=== PATIENT | female | born 1955 | race Caucasian/White ===

== ENCOUNTER 2022-06-27 12:45 | Emergency (ER) | payer OTHER ==
--- OUTSIDE RECORDS SUMMARY | 2022-06-27 12:49 | XMS REPORT | Continuity of Care Document ---
:1955 Author Organization [facility] t Address [address] [place] [address] Care Team Providers Name Role Phone NICOLE GONZALEZ Primary Care Physician Unavailable NICOLE GONZALEZ Attending Clinician Unavailable MARTHA ALEJANDRE Attending Clinician Unavailable Martha Alejandre MD Attending Clinician Nicole Gonzalez MD Attending Clinician Lab, Ang - Db Attending Clinician Unavailable YINKA HALL Attending Clinician Unavailable Vaccine, Ang Db Cbc Fam Attending Clinician Unavailable Orin Albarran Attending Clinician ORIN GARCIA Attending Clinician Unavailable RUFUS BRITO Attending Clinician Unavailable Yinka Hall MD Attending Clinician Doctor Unassigned, [place] Attending Clinician Unavailable KEITH CELESTE Attending Clinician Unavailable Keith Celeste DO Attending Clinician Rosa Jack PTA Attending Clinician Unavailable Daniel Rob MD Attending Clinician Paulo Orellana PTNaomi Attending Clinician Unavailable Cornelia Carter PT Attending Clinician Unavailable Caren Herrera Attending Clinician MARTHA ALEJANDRE Admitting Clinician Unavailable RUFUS BRITO Admitting Clinician Unavailable Payers Payer Name Policy Type Policy Number Effective Date Expiration Date Autumn ROGERS II [id number] 2020 00:00:00 Problems Condition Condition Condition Status Onset Resolution Last Treating Co mments Source Name Details Category Date Date Treatment Clinician Date Elevated Elevated Disease Active 2018-06 Unive rs AFP AFP 1-19 ity of 00:00: [place] 00 [facility] Erythrocyt Erythrocyt Disease Active 2018-06 U krystal osis osis 1-13 ity of 00:00: [place] 00 [facility] History of History of Disease Active 2018-06 U krystal prediabete prediabete 1-13 it y of s s 00:00: [place] [facility] Prediabete Prediabete Disease Active 2018-06 U nivers s s 1-13 ity of 00:00: [place] 00 [facility] Osteoarthr Osteoarthr Disease Active U krystal itis of itis of 8-21 ity of cervical cervical 00:00: [place] spine, spine, 00 Medical unspecifie unspecifie Br anch d spinal d spinal osteoarthr osteoarthr itis itis complicati complicati on status on status DDD DDD Disease Active Univers (degenerat (degenerat 8-19 it y of aurelia disc aurelia disc 00:00: [place] disease), disease), 00 [facility]i [place] cervical cervical Branch Transamini Transamini Disease Active 2016-06 U krystal tis tis 2-07 ity of 00:00: [place] 00 [facility] Hyperlipid Hyperlipid Disease Active 2016- U krystal emia emia 2-17 ity of 00:00: [place] 00 [facility] Fatty Fatty Disease Active Univers liver liver ity of [facility] Hair loss Hair loss Disease Active Uni vers ity of [facility] Arthritis Arthritis Disease Active Uni vers ity of [facility] Allergies, Adverse Reactions, Alerts Allergy Allergy Status Severity Reaction(s) Onset Inactive Treating Comm ents Source Name Type Date Date Clinician Penicill Propensi Active Hives 2017-06 Univer s ins ty to 2-28 ity of adverse 00:00: [place] reaction 00 Medical s Branch PENICILL Drug Active Hives 2017-06 Univers INS Class 2-28 ity of 00:00: [place] 00 [facility] Penicill Propensi Active Hives 2017-06 Univer s ins ty to 2- ity of adverse 00:00: [place] reaction 00 Medical s Branch Penicill Propensi Active Hives 2017-06 Univer s ins ty to 2- ity of adverse 00:00: [place] reaction 00 Medical s Branch Penicill Propensi Active Unknown - Uni vers in ty to See comments - ity of adverse 00:00: [place] reaction 00 Medical s Branch PENICILL DRUG Active Unknown-Cmnt Un karsten IN INGREDI 2-17 ity of 00:00: [place] 00 [facility] Social History Social Habit Start Date Stop Date Quantity Comments Source Exposure to 2022-04-24 2022-05-04 Not sure [facility] SARS-CoV-2 00:00:00 09:42:00 [facility] (event) [facility] Alcohol intake 2022-05-04 2022-05-04 0 /d [facility] 00:00:00 00:00:00 [facility] Tobacco use and 2022-04-22 2022-04-22 Smokeless tobacco Un iversity of exposure 00:00:00 00:00:00 non-user [facility] Sex Ass[birth year] At [birth year] Universit y of 00:00:00 00:00:00 [facility] Smoking Status Start Date Stop Date Source Never smoked tobacco [facility] Medications Ordered Filled Start Stop Current Ordering Indication Dosage Frequency Signature Comments Components Source Medication Medication Date Date Medication? Clinician (SIG) Name Name iopamidol 2021-06- No [id number] 73mL 73 mL, U nivers (ISOVUE 07-04 Intravenou ity o f 370-500 mL) 18:15: 18:15 s, ONCE, 1 [place] injection 00 :00 dose, On Medica l 73 mL Tue Branch 05/04/22 at 1215, Routine ondansetron 2021-06 Yes [id number] 1-2 Un karsten 4 mg tablet 07-04 tablets ity o f 00:00: every 6 [place] 00 hours as Medical needed for Branch nausea metroNIDAZO 2021-06- Yes [id number] 500mg Take 1 Univers LE 500 mg 07-04 12-10 tablet by ity of tablet 00:00: 05:59 mouth [place] 00 :00 every 8 Medical (eight) Branch hours for 10 days. levoFLOXaci 2021-06- Yes [id number] 500mg Take 1 Univers n 500 mg 07-04 12-10 tablet by ity o f tablet 00:00: 05:59 mouth [place] 00 :00 every 24 Medical (twenty-fo Branch ur) hours for 10 days. predniSONE 2021-06- Yes [id number] 40mg Take 2 Univers 20 mg -29 12-07 tablets by ity of tablet 00:00: 05:59 mouth in [place] 00 :00 the Medical morning Branch for 7 days. ciprofloxac 2021-06 Yes [id number] 500mg Take 1 Univers in HCl 1-17 tablet by ity of (CIPRO) 500 00:00: mouth [place] mg tablet 00 every 12 Medica l (twelve) Branch hours. ciprofloxac 2021-06 Yes [id number] 500mg Take 1 Univers in HCl 1-17 tablet by ity of (CIPRO) 500 00:00: mouth [place] mg tablet 00 every 12 Medica l (twelve) Branch hours. ciprofloxac 2021-06 Yes [id number] 500mg Take 1 Univers in HCl 1-17 tablet by ity of (CIPRO) 500 00:00: mouth [place] mg tablet 00 every 12 Medica l (twelve) Branch hours. RETIN-A Yes Univers MICRO PUMP 9-13 ity of 0.06 % GlwP 00:00: [place] 00 [facility] RETIN-A Yes Univers MICRO PUMP 9-13 ity of 0.06 % GlwP 00:00: [place] 00 [facility] RETIN-A Yes Univers MICRO PUMP 9-13 ity of 0.06 % GlwP 00:00: [place] 00 [facility] MULTIVITAMI 2020-06 Yes Take by Uni vers N ORAL 2-07 mouth. ity of 09:54: [address] Branch cholecalcif 2020-06 Yes 1{capsu Take 1 U nivers tres, 2-07 le} capsule by ity of vitamin D3, 09:54: mouth [place] (VITAMIN D3 46 daily. Medica l ORAL) Branch MULTIVITAMI 2020-06 Yes Take by Uni vers N ORAL 2-07 mouth. ity of 09:54: [address] Branch cholecalcif 2020-06 Yes 1{capsu Take 1 U nivers tres, 2-07 le} capsule by ity of vitamin D3, 09:54: mouth [place] (VITAMIN D3 46 daily. Medica l ORAL) [facility] 2020-06 Yes Take by Uni vers N ORAL 2-07 mouth. ity of 09:54: [address] cholecalcif 2020-06 Yes 1{capsu Take 1 U nivers tres, 2-07 le} capsule by ity of vitamin D3, 09:54: mouth [place] (VITAMIN D3 46 daily. Medica l ORAL) [facility] 2020-06 Yes Take by Uni vers N ORAL 2-07 mouth. ity of 09:54: [address] cholecalcif 2020-06 Yes 1{capsu Take 1 U nivers tres, 2-07 le} capsule by ity of vitamin D3, 09:54: mouth [place] (VITAMIN D3 46 daily. Medica l ORAL) [facility] 2020-06 Yes Take by Uni vers N ORAL 2-07 mouth. ity of 09:54: [address] cholecalcif 2020-06 Yes 1{capsu Take 1 U nivers tres, 2-07 le} capsule by ity of vitamin D3, 09:54: mouth [place] (VITAMIN D3 46 daily. Medica l ORAL) [facility] 2020-06 Yes Take by Uni vers N ORAL 2-07 mouth. ity of 09:54: [address] cholecalcif 2020-06 Yes 1{capsu Take 1 U nivers tres, 2-07 le} capsule by ity of vitamin D3, 09:54: mouth [place] (VITAMIN D3 46 daily. Medica l ORAL) [facility] 2020-06 Yes Take by Uni vers N ORAL 2-07 mouth. ity of 09:54: [address] cholecalcif 2020-06 Yes 1{capsu Take 1 U nivers tres, 2-07 le} capsule by ity of vitamin D3, 09:54: mouth [place] (VITAMIN D3 46 daily. Medica l ORAL) [facility] 2020-06 Yes Take by Uni vers N ORAL 2-07 mouth. ity of 09:54: [address] cholecalcif 2020-06 Yes 1{capsu Take 1 U nivers tres, 2-07 le} capsule by ity of vitamin D3, 09:54: mouth [place] (VITAMIN D3 46 daily. Medica l ORAL) [facility] 2020-06 Yes Take by Uni vers N ORAL 2-07 mouth. ity of 09:54: [address] cholecalcif 2020-06 Yes 1{capsu Take 1 U nivers tres, 2-07 le} capsule by ity of vitamin D3, 09:54: mouth [place] (VITAMIN D3 46 daily. Medica l ORAL) [facility] 2020-06 Yes Take by Uni vers N ORAL 2-07 mouth. ity of 09:54: [address] cholecalcif 2020-06 Yes 1{capsu Take 1 U nivers tres, 2-07 le} capsule by ity of vitamin D3, 09:54: mouth [place] (VITAMIN D3 46 daily. Medica l ORAL) [facility] 2020-06 Yes Take by Uni vers N ORAL 2-07 mouth. ity of 09:54: [address] cholecalcif 2020-06 Yes 1{capsu Take 1 U nivers tres, 2-07 le} capsule by ity of vitamin D3, 09:54: mouth [place] (VITAMIN D3 46 daily. Medica l ORAL) [facility] 2020-06 Yes Take by Uni vers N ORAL 2-07 mouth. ity of 09:54: [address] cholecalcif 2020-06 Yes 1{capsu Take 1 U nivers tres, 2-07 le} capsule by ity of vitamin D3, 09:54: mouth [place] (VITAMIN D3 46 daily. Medica l ORAL) [facility] 2020-06 Yes Take by Uni vers N ORAL 2-07 mouth. ity of 09:54: [address] cholecalcif 2020-06 Yes 1{capsu Take 1 U nivers tres, 2-07 le} capsule by ity of vitamin D3, 09:54: mouth [place] (VITAMIN D3 46 daily. Medica l ORAL) [facility] rosuvastati 2020-06 Yes [id number] 5mg Take 1 Univers n 5 mg 2-07 tablet by ity of tablet 00:00: mouth [place] 00 daily. [facility] rosuvastati 2020-06 Yes [id number] 5mg Take 1 Univers n 5 mg 2-07 tablet by ity of tablet 00:00: mouth [place] 00 daily. Medical Branch rosuvastati 2020-06 Yes [id number] 5mg Take 1 Univers n 5 mg 2-07 tablet by ity of tablet 00:00: mouth [place] 00 daily. Medical Branch rosuvastati 2020-06 Yes [id number] 5mg Take 1 Univers n 5 mg 2-07 tablet by ity of tablet 00:00: mouth [place] 00 daily. Medical Branch rosuvastati 2020-06 Yes [id number] 5mg Take 1 Univers n 5 mg 2-07 tablet by ity of tablet 00:00: mouth [place] 00 daily. Medical Branch rosuvastati 2020-06 Yes [id number] 5mg Take 1 Univers n 5 mg 2-07 tablet by ity of tablet 00:00: mouth [place] 00 daily. Medical Branch rosuvastati 2020-06 Yes [id number] 5mg Take 1 Univers n 5 mg 2-07 tablet by ity of tablet 00:00: mouth [place] 00 daily. Medical Branch rosuvastati 2020-06 Yes [id number] 5mg Take 1 Univers n 5 mg 2-07 tablet by ity of tablet 00:00: mouth [place] 00 daily. Medical Branch rosuvastati 2020-06 Yes [id number] 5mg Take 1 Univers n 5 mg 2-07 tablet by ity of tablet 00:00: mouth [place] 00 daily. Medical Branch rosuvastati 2020-06 Yes [id number] 5mg Take 1 Univers n 5 mg 2-07 tablet by ity of tablet 00:00: mouth [place] 00 daily. Medical Branch rosuvastati 2020-06 Yes [id number] 5mg Take 1 Univers n 5 mg 2-07 tablet by ity of tablet 00:00: mouth [place] 00 daily. Medical Branch rosuvastati 2020-06 Yes [id number] 5mg Take 1 Univers n 5 mg 2-07 tablet by ity of tablet 00:00: mouth [place] 00 daily. Medical Branch rosuvastati 2020-06 Yes [id number] 5mg Take 1 Univers n 5 mg 2-07 tablet by ity of tablet 00:00: mouth [place] 00 daily. Medical Branch Immunizations Ordered Filled Immunization Date Status Comments [facility] e Immunization Name Name Influenza Virus 2022-04-07 Completed Universit y of Vaccine 00:00:00 [facility] Influenza Virus 2022-04-07 Completed Universit y of Vaccine 00:00:00 [facility] Branch Influenza Virus 2022-04-07 Completed Universit y of Vaccine 00:00:00 [facility] Branch SARS-COV-2 COVID-19 2021-10-23 Completed Unive rsity of PFIZER PEMA-SUCROSE 00:00:00 [place] [facility] VACCINE (ZAMBRANO TOP) Branch SARS-COV-2 COVID-19 2021-10-23 Completed Unive rsity of PFIZER PEMA-SUCROSE 00:00:00 [place] [facility] VACCINE (ZAMBRANO TOP) Branch SARS-COV-2 COVID-19 2021-10-23 Completed Unive rsity of PFIZER PEMA-SUCROSE 00:00:00 [place] [facility] VACCINE (ZAMBRANO TOP) Branch SARS-COV-2 COVID-19 2021-10-23 Completed Unive rsity of PFIZER PEMA-SUCROSE 00:00:00 [place] [facility] VACCINE (ZAMBRANO TOP) Branch SARS-COV-2 COVID-19 2021-10-23 Completed Unive rsity of PFIZER PEMA-SUCROSE 00:00:00 [place] [facility] VACCINE (ZAMBRANO TOP) Branch SARS-COV-2 COVID-19 2021-10-23 Completed Unive rsity of PFIZER PEMA-SUCROSE 00:00:00 [place] [facility] VACCINE (ZAMBRANO TOP) Branch SARS-COV-2 COVID-19 2021-10-23 Completed Unive rsity of PFIZER PEMA-SUCROSE 00:00:00 [place] [facility] VACCINE (ZAMBRANO TOP) Branch SARS-COV-2 COVID-19 2021-10-23 Completed Unive rsity of PFIZER PEMA-SUCROSE 00:00:00 [place] [facility] VACCINE (ZAMBRANO TOP) Branch SARS-COV-2 COVID-19 2021-10-23 Completed Unive rsity of PFIZER PEMA-SUCROSE 00:00:00 [place] [facility] VACCINE (ZAMBRANO TOP) Branch SARS-COV-2 COVID-19 2021-10-23 Completed Unive rsity of PFIZER PEMA-SUCROSE 00:00:00 [place] [facility] VACCINE (ZAMBRANO TOP) Branch SARS-COV-2 COVID-19 2021-10-23 Completed Unive rsity of PFIZER PEMA-SUCROSE 00:00:00 [place] [facility] VACCINE (ZAMBRANO TOP) Branch Pneumococcal 2021-05-12 Completed University o f Polysaccharide, 00:00:00 [place] Med ical PPSV23 (PNEUMOVAX) Branch Pneumococcal 2021-05-12 Completed University o f Polysaccharide, 00:00:00 [place] [facility] ical PPSV23 (PNEUMOVAX) Branch Pneumococcal 2021-05-12 Completed University o f Polysaccharide, 00:00:00 [place] Med ical PPSV23 (PNEUMOVAX) Branch Pneumococcal 2021-05-12 Completed University o f Polysaccharide, 00:00:00 [place] Med ical PPSV23 (PNEUMOVAX) Branch Pneumococcal 2021-05-12 Completed University o f Polysaccharide, 00:00:00 [place] Med ical PPSV23 (PNEUMOVAX) Branch Pneumococcal 2021-05-12 Completed University o f Polysaccharide, 00:00:00 [place] Med ical PPSV23 (PNEUMOVAX) Branch Pneumococcal 2021-05-12 Completed University o f Polysaccharide, 00:00:00 [place] Med ical PPSV23 (PNEUMOVAX) Branch Pneumococcal 2021-05-12 Completed University o f Polysaccharide, 00:00:00 [place] Med ical PPSV23 (PNEUMOVAX) Branch Pneumococcal 2021-05-12 Completed University o f Polysaccharide, 00:00:00 [place] Med ical PPSV23 (PNEUMOVAX) Branch Pneumococcal 2021-05-12 Completed University o f Polysaccharide, 00:00:00 [place] Med ical PPSV23 (PNEUMOVAX) Branch Pneumococcal 2021-05-12 Completed University o f Polysaccharide, 00:00:00 [place] Med ical PPSV23 (PNEUMOVAX) Branch Pneumococcal 2021-05-12 Completed University o f Polysaccharide, 00:00:00 [place] Med ical PPSV23 (PNEUMOVAX) Branch Pneumococcal 2021-05-12 Completed University o f Polysaccharide, 00:00:00 [place] Med ical PPSV23 (PNEUMOVAX) Branch SARS-COV-2 COVID-19 2021-04-29 Completed Unive rsity of PFIZER VACCINE 00:00:00 [facility] SARS-COV-2 COVID-19 2021-04-29 Completed Unive rsity of PFIZER VACCINE 00:00:00 [facility] Branch SARS-COV-2 COVID-19 2021-04-29 Completed Unive rsity of PFIZER VACCINE 00:00:00 [facility] SARS-COV-2 COVID-19 2021-04-29 Completed Unive rsity of PFIZER VACCINE 00:00:00 [facility] SARS-COV-2 COVID-19 2021-04-29 Completed Unive rsity of PFIZER VACCINE 00:00:00 [facility] SARS-COV-2 COVID-19 2021-04-29 Completed Unive rsity of PFIZER VACCINE 00:00:00 [facility] SARS-COV-2 COVID-19 2021-04-29 Completed Unive rsity of PFIZER VACCINE 00:00:00 [facility] SARS-COV-2 COVID-19 2021-04-29 Completed Unive rsity of PFIZER VACCINE 00:00:00 [facility] SARS-COV-2 COVID-19 2021-04-29 Completed Unive rsity of PFIZER VACCINE 00:00:00 [facility] SARS-COV-2 COVID-19 2021-04-29 Completed Unive rsity of PFIZER VACCINE 00:00:00 [facility] SARS-COV-2 COVID-19 2021-04-29 Completed Unive rsity of PFIZER VACCINE 00:00:00 [facility] SARS-COV-2 COVID-19 2021-04-29 Completed Unive rsity of PFIZER VACCINE 00:00:00 [facility] SARS-COV-2 COVID-19 2021-04-29 Completed Unive rsity of PFIZER VACCINE 00:00:00 [facility] Influenza High Dose 2021-02-13 Completed Unive rsity of 00:00:00 [place] [facility] Influenza High Dose 2021-02-13 Completed Unive rsity of 00:00:00 [facility] Branch Influenza High Dose 2021-02-13 Completed Unive rsity of 00:00:00 [facility] Branch Influenza High Dose 2021-02-13 Completed Unive rsity of 00:00:00 [place] [facility] Influenza High Dose 2021-02-13 Completed Unive rsity of 00:00:00 [place] [facility] Influenza High Dose 2021-02-13 Completed Unive rsity of 00:00:00 [place] [facility] Influenza High Dose 2021-02-13 Completed Unive rsity of 00:00:00 [place] [facility] Influenza High Dose 2021-02-13 Completed Unive rsity of 00:00:00 [place] [facility] Influenza High Dose 2021-02-13 Completed Unive rsity of 00:00:00 [place] [facility] Influenza High Dose 2021-02-13 Completed Unive rsity of 00:00:00 [place] [facility] Influenza High Dose 2021-02-13 Completed Unive rsity of 00:00:00 [facility] Influenza High Dose 2021-02-13 Completed Unive rsity of 00:00:00 [facility] Influenza High Dose 2021-02-13 Completed Unive rsity of 00:00:00 [facility] SARS-COV-2 COVID-19 2020-08-02 Completed Unive rsity of PFIZER VACCINE 00:00:00 [facility] Branch SARS-COV-2 COVID-19 2020-08-02 Completed Unive rsity of PFIZER VACCINE 00:00:00 [facility] Branch SARS-COV-2 COVID-19 2020-08-02 Completed Unive rsity of PFIZER VACCINE 00:00:00 [facility] Branch SARS-COV-2 COVID-19 2020-08-02 Completed Unive rsity of PFIZER VACCINE 00:00:00 [facility] SARS-COV-2 COVID-19 2020-08-02 Completed Unive rsity of PFIZER VACCINE 00:00:00 [facility] Branch SARS-COV-2 COVID-19 2020-08-02 Completed Unive rsity of PFIZER VACCINE 00:00:00 [facility] SARS-COV-2 COVID-19 2020-08-02 Completed Unive rsity of PFIZER VACCINE 00:00:00 [facility] Branch SARS-COV-2 COVID-19 2020-08-02 Completed Unive rsity of PFIZER VACCINE 00:00:00 [facility] SARS-COV-2 COVID-19 2020-08-02 Completed Unive rsity of PFIZER VACCINE 00:00:00 [facility] Branch SARS-COV-2 COVID-19 2020-08-02 Completed Unive rsity of PFIZER VACCINE 00:00:00 [facility] SARS-COV-2 COVID-19 2020-08-02 Completed Unive rsity of PFIZER VACCINE 00:00:00 [facility] Branch SARS-COV-2 COVID-19 2020-08-02 Completed Unive rsity of PFIZER VACCINE 00:00:00 [facility] SARS-COV-2 COVID-19 2020-08-02 Completed Unive rsity of PFIZER VACCINE 00:00:00 [facility] SARS-COV-2 COVID-19 2020-07-12 Completed Unive rsity of PFIZER VACCINE 00:00:00 [facility] Branch SARS-COV-2 COVID-19 2020-07-12 Completed Unive rsity of PFIZER VACCINE 00:00:00 [facility] Branch SARS-COV-2 COVID-19 2020-07-12 Completed Unive rsity of PFIZER VACCINE 00:00:00 [facility] SARS-COV-2 COVID-19 2020-07-12 Completed Unive rsity of PFIZER VACCINE 00:00:00 [facility] SARS-COV-2 COVID-19 2020-07-12 Completed Unive rsity of PFIZER VACCINE 00:00:00 [facility] SARS-COV-2 COVID-19 2020-07-12 Completed Unive rsity of PFIZER VACCINE 00:00:00 [facility] SARS-COV-2 COVID-19 2020-07-12 Completed Unive rsity of PFIZER VACCINE 00:00:00 [facility] SARS-COV-2 COVID-19 2020-07-12 Completed Unive rsity of PFIZER VACCINE 00:00:00 [facility] SARS-COV-2 COVID-19 2020-07-12 Completed Unive rsity of PFIZER VACCINE 00:00:00 [facility] SARS-COV-2 COVID-19 2020-07-12 Completed Unive rsity of PFIZER VACCINE 00:00:00 [facility] SARS-COV-2 COVID-19 2020-07-12 Completed Unive rsity of PFIZER VACCINE 00:00:00 [facility] SARS-COV-2 COVID-19 2020-07-12 Completed Unive rsity of PFIZER VACCINE 00:00:00 [facility] SARS-COV-2 COVID-19 2020-07-12 Completed Unive rsity of PFIZER VACCINE 00:00:00 [facility] Branch Influenza High Dose 2020-03-08 Completed Unive rsity of Quad 00:00:00 [facility] Branch Influenza High Dose 2020-03-08 Completed Unive rsity of [place] 00:00:00 [facility] Branch Influenza High Dose 2020-03-08 Completed Unive rsity of [place] 00:00:00 [facility] Branch Influenza High Dose 2020-03-08 Completed Unive rsity of [place] 00:00:00 [facility] Branch Influenza High Dose 2020-03-08 Completed Unive rsity of [place] 00:00:00 [facility] Influenza High Dose 2020-03-08 Completed Unive rsity of [place] 00:00:00 [facility] Influenza High Dose 2020-03-08 Completed Unive rsity of [place] 00:00:00 [facility] Influenza High Dose 2020-03-08 Completed Unive rsity of [place] 00:00:00 [facility] Influenza High Dose 2020-03-08 Completed Unive rsity of [place] 00:00:00 [facility] Influenza High Dose 2020-03-08 Completed Unive rsity of [place] 00:00:00 [facility] Influenza High Dose 2020-03-08 Completed Unive rsity of [place] 00:00:00 [facility] Influenza High Dose 2020-03-08 Completed Unive rsity of [place] 00:00:00 [facility] Influenza High Dose 2020-03-08 Completed Unive rsity of [place] 00:00:00 [facility] Pneumococcal 13 2019-03-22 Completed Universit y of Conjugate, PCV13 00:00:00 [place] [facility] d[facility] (Prevnar 13) Branch Pneumococcal 13 2019-03-22 Completed Universit y of Conjugate, PCV13 00:00:00 [place] [facility] dical (Prevnar 13) Branch Pneumococcal 13 2019-03-22 Completed Universit y of Conjugate, PCV13 00:00:00 [place] Me dical (Prevnar 13) Branch Pneumococcal 13 2019-03-22 Completed Universit y of Conjugate, PCV13 00:00:00 [place] Me dical (Prevnar 13) Branch Pneumococcal 13 2019-03-22 Completed Universit y of Conjugate, PCV13 00:00:00 [place] Me dical (Prevnar 13) Branch Pneumococcal 13 2019-03-22 Completed Universit y of Conjugate, PCV13 00:00:00 [place] [facility] dical (Prevnar 13) Branch Pneumococcal 13 2019-03-22 Completed Universit y of Conjugate, PCV13 00:00:00 [place] [facility] dical (Prevnar 13) Branch Pneumococcal 13 2019-03-22 Completed Universit y of Conjugate, PCV13 00:00:00 [place] [facility] dical (Prevnar 13) Branch Pneumococcal 13 2019-03-22 Completed Universit y of Conjugate, PCV13 00:00:00 [place] [facility]ical (Prevnar 13) Branch Pneumococcal 13 2019-03-22 Completed Universit y of Conjugate, PCV13 00:00:00 [place] Me dical (Prevnar 13) Branch Pneumococcal 13 2019-03-22 Completed Universit y of Conjugate, PCV13 00:00:00 [facility] dical (Prevnar 13) Branch Pneumococcal 13 2019-03-22 Completed Universit y of Conjugate, PCV13 00:00:00 [facility] dical (Prevnar 13) Branch Pneumococcal 13 2019-03-22 Completed Universit y of Conjugate, PCV13 00:00:00 [facility] dical (Prevnar 13) Branch Influenza Virus 2019-02-27 Completed Universit y of Vaccine 00:00:00 [facility] Influenza Virus 2019-02-27 Completed Universit y of Vaccine 00:00:00 [facility] Influenza Virus 2019-02-27 Completed Universit y of Vaccine 00:00:00 [facility] Influenza Virus 2019-02-27 Completed Universit y of Vaccine 00:00:00 [facility] Influenza Virus 2019-02-27 Completed Universit y of Vaccine 00:00:00 [facility] Influenza Virus 2019-02-27 Completed Universit y of Vaccine 00:00:00 [facility] Influenza Virus 2019-02-27 Completed Universit y of Vaccine 00:00:00 [facility] Influenza Virus 2019-02-27 Completed Universit y of Vaccine 00:00:00 [facility] Influenza Virus 2019-02-27 Completed Universit y of Vaccine 00:00:00 [facility] Influenza Virus 2019-02-27 Completed Universit y of Vaccine 00:00:00 [facility] Influenza Virus 2019-02-27 Completed Universit y of Vaccine 00:00:00 [facility] Influenza Virus 2019-02-27 Completed Universit y of Vaccine 00:00:00 [facility] Influenza Virus 2019-02-27 Completed Universit y of Vaccine 00:00:00 [facility] Zoster Vaccine 2018-06-19 Completed University of Recombinant 00:00:00 [facility] Zoster Vaccine 2018-06-19 Completed University of Recombinant 00:00:00 [facility] Zoster Vaccine 2018-06-19 Completed University of Recombinant 00:00:00 [facility] Zoster Vaccine 2018-06-19 Completed University of Recombinant 00:00:00 [facility] Zoster Vaccine 2018-06-19 Completed University of Recombinant 00:00:00 [facility] Zoster Vaccine 2018-06-19 Completed University of Recombinant 00:00:00 [facility] Zoster Vaccine 2018-06-19 Completed University of Recombinant 00:00:00 [facility] Zoster Vaccine 2018-06-19 Completed University of Recombinant 00:00:00 [facility] Zoster Vaccine 2018-06-19 Completed University of Recombinant 00:00:00 [facility] Zoster Vaccine 2018-06-19 Completed University of Recombinant 00:00:00 [facility] Zoster Vaccine 2018-06-19 Completed University of Recombinant 00:00:00 [facility] Zoster Vaccine 2018-06-19 Completed University of Recombinant 00:00:00 [facility] Zoster Vaccine 2018-06-19 Completed University of Recombinant 00:00:00 [facility] Twinrix (hep a/hep 2018-06-05 Completed Univer sity of b) 00:00:00 [facility] Twinrix (hep a/hep 2018-06-05 Completed Univer sity of b) 00:00:00 [facility] Twinrix (hep a/hep 2018-06-05 Completed Univer sity of b) 00:00:00 [facility] Twinrix (hep a/hep 2018-06-05 Completed Univer sity of b) 00:00:00 [facility] Twinrix (hep a/hep 2018-06-05 Completed Univer sity of b) 00:00:00 [facility] Twinrix (hep a/hep 2018-06-05 Completed Univer sity of b) 00:00:00 [facility] Twinrix (hep a/hep 2018-06-05 Completed Univer sity of b) 00:00:00 [facility] Twinrix (hep a/hep 2018-06-05 Completed Univer sity of b) 00:00:00 [facility] Twinrix (hep a/hep 2018-06-05 Completed Univer sity of b) 00:00:00 [facility] Twinrix (hep a/hep 2018-06-05 Completed Univer sity of b) 00:00:00 [facility] Twinrix (hep a/hep 2018-06-05 Completed Univer sity of b) 00:00:00 [facility] Twinrix (hep a/hep 2018-06-05 Completed Univer sity of b) 00:00:00 [facility] Twinrix (hep a/hep 2018-06-05 Completed Univer sity of b) 00:00:00 [facility] Zoster Vaccine 2018-04-20 Completed University of Recombinant 00:00:00 [facility] Zoster Vaccine 2018-04-20 Completed University of Recombinant 00:00:00 [facility] Zoster Vaccine 2018-04-20 Completed University of Recombinant 00:00:00 [facility] Zoster Vaccine 2018-04-20 Completed University of Recombinant 00:00:00 [facility] Zoster Vaccine 2018-04-20 Completed University of Recombinant 00:00:00 [facility] Zoster Vaccine 2018-04-20 Completed University of Recombinant 00:00:00 [facility] Zoster Vaccine 2018-04-20 Completed University of Recombinant 00:00:00 [facility] Zoster Vaccine 2018-04-20 Completed University of Recombinant 00:00:00 [facility] Zoster Vaccine 2018-04-20 Completed University of Recombinant 00:00:00 [facility] Zoster Vaccine 2018-04-20 Completed University of Recombinant 00:00:00 [facility] Zoster Vaccine 2018-04-20 Completed University of Recombinant 00:00:00 [facility] Zoster Vaccine 2018-04-20 Completed University of Recombinant 00:00:00 [facility] Zoster Vaccine 2018-04-20 Completed University of Recombinant 00:00:00 [facility] Influenza Virus 2018-02-21 Completed Universit y of Vaccine 00:00:00 [facility] Influenza Virus 2018-02-21 Completed Universit y of Vaccine 00:00:00 [facility] Influenza Virus 2018-02-21 Completed Universit y of Vaccine 00:00:00 [facility] Influenza Virus 2018-02-21 Completed Universit y of Vaccine 00:00:00 [facility] Influenza Virus 2018-02-21 Completed Universit y of Vaccine 00:00:00 [facility] Influenza Virus 2018-02-21 Completed Universit y of Vaccine 00:00:00 [facility] Influenza Virus 2018-02-21 Completed Universit y of Vaccine 00:00:00 [facility] Influenza Virus 2018-02-21 Completed Universit y of Vaccine 00:00:00 [facility] Influenza Virus 2018-02-21 Completed Universit y of Vaccine 00:00:00 [facility] Influenza Virus 2018-02-21 Completed Universit y of Vaccine 00:00:00 [facility] Influenza Virus 2018-02-21 Completed Universit y of Vaccine 00:00:00 [facility] Influenza Virus 2018-02-21 Completed Universit y of Vaccine 00:00:00 [facility] Influenza Virus 2018-02-21 Completed Universit y of Vaccine 00:00:00 [facility] Twinrix (hep a/hep 2018-01-03 Completed Univer sity of b) 00:00:00 [facility] Twinrix (hep a/hep 2018-01-03 Completed Univer sity of b) 00:00:00 [facility] Twinrix (hep a/hep 2018-01-03 Completed Univer sity of b) 00:00:00 [facility] Twinrix (hep a/hep 2018-01-03 Completed Univer sity of b) 00:00:00 [facility] Twinrix (hep a/hep 2018-01-03 Completed Univer sity of b) 00:00:00 [facility] Twinrix (hep a/hep 2018-01-03 Completed Univer sity of b) 00:00:00 [facility] Twinrix (hep a/hep 2018-01-03 Completed Univer sity of b) 00:00:00 [facility] Twinrix (hep a/hep 2018-01-03 Completed Univer sity of b) 00:00:00 [facility] Twinrix (hep a/hep 2018-01-03 Completed Univer sity of b) 00:00:00 [facility] Twinrix (hep a/hep 2018-01-03 Completed Univer sity of b) 00:00:00 [facility] Twinrix (hep a/hep 2018-01-03 Completed Univer sity of b) 00:00:00 [facility] Twinrix (hep a/hep 2018-01-03 Completed Univer sity of b) 00:00:00 [facility] Twinrix (hep a/hep 2018-01-03 Completed Univer sity of b) 00:00:00 [facility] Twinrix (hep a/hep 2017-12-01 Completed Univer sity of b) 00:00:00 [facility] Twinrix (hep a/hep 2017-12-01 Completed Univer sity of b) 00:00:00 [facility] Twinrix (hep a/hep 2017-12-01 Completed Univer sity of b) 00:00:00 [facility] Twinrix (hep a/hep 2017-12-01 Completed Univer sity of b) 00:00:00 [facility] Twinrix (hep a/hep 2017-12-01 Completed Univer sity of b) 00:00:00 [facility] Twinrix (hep a/hep 2017-12-01 Completed Univer sity of b) 00:00:00 [facility] Twinrix (hep a/hep 2017-12-01 Completed Univer sity of b) 00:00:00 [facility] Twinrix (hep a/hep 2017-12-01 Completed Univer sity of b) 00:00:00 [facility] Twinrix (hep a/hep 2017-12-01 Completed Univer sity of b) 00:00:00 [facility] Twinrix (hep a/hep 2017-12-01 Completed Univer sity of b) 00:00:00 [facility] Twinrix (hep a/hep 2017-12-01 Completed Univer sity of b) 00:00:00 [facility] Twinrix (hep a/hep 2017-12-01 Completed Univer sity of b) 00:00:00 [facility] Twinrix (hep a/hep 2017-12-01 Completed Univer sity of b) 00:00:00 [facility] TDAP 2016-03-29 Completed University of 00:00:00 [facility] TDAP 2016-03-29 Completed University of 00:00:00 [facility] TDAP 2016-03-29 Completed University of 00:00:00 [facility] TDAP 2016-03-29 Completed University of 00:00:00 [facility] TDAP 2016-03-29 Completed University of 00:00:00 [facility] TDAP 2016-03-29 Completed University of 00:00:00 [facility] TDAP 2016-03-29 Completed University of 00:00:00 [facility] TDAP 2016-03-29 Completed University of 00:00:00 [facility] TDAP 2016-03-29 Completed University of 00:00:00 [facility] TDAP 2016-03-29 Completed University of 00:00:00 [facility] TDAP 2016-03-29 Completed University of 00:00:00 [facility] TDAP 2016-03-29 Completed University of 00:00:00 [facility] TDAP 2016-03-29 Completed University of 00:00:00 [facility] Zoster(Zostavax)( 2015-07-23 Completed Unive rsity of ingles) 00:00:00 [facility] Zoster(Zostavax)( 2015-07-23 Completed Unive rsity of ingles) 00:00:00 [facility] Zoster(Zostavax)( 2015-07-23 Completed Unive rsity of ingles) 00:00:00 [facility] Zoster(Zostavax)( 2015-07-23 Completed Unive rsity of ingles) 00:00:00 [facility] Zoster(Zostavax)( 2015-07-23 Completed Unive rsity of ingles) 00:00:00 [facility] Zoster(Zostavax)( 2015-07-23 Completed Unive rsity of ingles) 00:00:00 [facility] Zoster(Zostavax)( 2015-07-23 Completed Unive rsity of ingles) 00:00:00 [facility] Zoster(Zostavax)( 2015-07-23 Completed Unive rsity of ingles) 00:00:00 [facility] Zoster(Zostavax)( 2015-07-23 Completed Unive rsity of ingles) 00:00:00 [facility] Zoster(Zostavax)( 2015-07-23 Completed Unive rsity of ingles) 00:00:00 [facility] Zoster(Zostavax)( 2015-07-23 Completed Unive rsity of ingles) 00:00:00 [facility] Zoster(Zostavax)( 2015-07-23 Completed Unive rsity of ingles) 00:00:00 [facility] Zoster(Zostavax)( 2015-07-23 Completed Unive rsity of ingles) 00:00:00 [facility] Vital Signs Vital Name Observation Time Observation Value Comments Source Systolic blood 2022-05-04 15:43:00 168 mm[Hg] Univer sity of pressure [facility] Diastolic blood 2022-05-04 15:43:00 88 mm[Hg] Unive rsity of pressure [facility] Heart rate 2022-05-04 15:43:00 100 /min [facility] Body temperature 2022-05-04 15:43:[address] [facility] Respiratory rate 2022-05-04 15:43:00 16 /min [facility] Body height 2022-05-04 15:43:00 162.6 cm Universi ty [facility] [place] [facility] Body weight 2022-05-04 15:43:00 90.719 kg Universi ty [facility] BMI 2022-05-04 15:43:00 34.33 kg/m2 Universi ty [facility] Oxygen saturation in 2022-05-04 15:43:00 97 /min University of Arterial blood by [facility] Pulse oximetry Branch Systolic blood 2022-04-22 18:11:00 140 mm[Hg] [facility] pressure [facility] Diastolic blood 2022-04-22 18:11:00 82 mm[facility]Hg[facility] 2022-04-22 18:10:00 83 /min Universi ty of [facility] Body height 2022-04-22 18:10:00 162.6 cm Universi ty [facility] Body weight 2022-04-22 18:10:00 91.082 kg Universi ty [facility] BMI 2022-04-22 18:10:00 34.47 kg/m2 Universi ty [facility] Oxygen saturation in 2022-04-22 18:10:00 99 /min University of Arterial blood by [facility] Pulse oximetry [facility] Procedures Procedure Date / Time Performed Performing Clinician Sour e CT ABDOMEN PELVIS W 2022-05-04 17:19:22 [facility] URINALYSIS 2022-05-04 16:16:[address] [facility] LIPASE 2022-05-04 16:03:[address] [facility] COMP. METABOLIC PANEL 2022-05-04 16:03:00 Martha Alejandre [facility] ([id number]) [facility] CBC WITH DIFF 2022-05-04 16:03:[address] [facility] CONSENT/REFUSAL FOR 2022-05-04 15:36:20 Doctor Unassigned, No Un [facility] DIAGNOSIS AND Name Medical Branch TREATMENT SARS-COV-2 COVID-19 2021-10-23 14:23:47 Doctor Unassigned, No Un [facility] [place] VACCINE 12 Name [facility] YRS+,0.3ML,IM (PFIZER - ZAMBRANO TOP) Encounters Start End Encounter Admission Attending Care Care Encounter Source Date/Time Date/Time Type Type Clinicians Facility Department ID 2022-05-06 2022-05-06 [id number] Univers 00:00:00 00:00:00 NICOLE khan [facility] 2022-05-04 2022-05-[address] [facility] [id number] Univers 09:44:00 13:08:00 MARTHA khan [facility] 2022-05-04 2022-05-[address] [facility] [id number] Univers 09:44:00 13:08:00 Martha SONG 350.1.13.10 ity [facility] 4.2.7.2.686 [place] [facility] [id number] [facility] 0[address] [facility] 2022-04-22 2022-04-[address] [facility] 1.2.840.114 [id number] Univers 12:15:00 12:30:00 Visit [facility] 350.1.13.10 it y of [place] 4.2.7.2.686 Herb as HO?BLEA [id number] [facility] 0[address] [facility] MEDICAL OFFICE [facility] 2022-04-22 2022-04-22 Outpatient Josefa GONZALEZ [facility] [id number] Univers 12:15:00 12:15:00 NICOLE khan [facility] 2022-04-20 2022-04-20 Front [facility], Ang - Db [facility] 1.2.840.1 [id number] Univers 09:15:00 09:30:00 Visit Nicole Gonzalez [facility] 350.1.13.10 ity of [place] 4.2.7.2.686 Herb as HO?BLEA [id number] [facility] 353 [facility] MEDICAL OFFICE BUILDING 2022-04-20 2022-04-20 [facility] [id number] Univers 09:15:00 09:15:00 NICOLE khan [facility] 2022-04-12 2022-04-[address] [facility] [id number] Univers 00:00:00 00:00:00 Nicole HEALTH 350.1.13.10 it y of [place] 4.2.7.2.686 Herb as HO?BLEA [id number] [address] 2022-04-02 2022-04-[address] [facility] [id number] Univers 00:00:00 00:00:00 Nicole HEALTH 350.1.13.10 [facility] 4.2.7.2.686 Herb as HO?BLEA [id number] [address] 2021-11-10 2021-11-10 Outpatient R SHELDON [facility] [id number] Univers 09:00:00 09:00:00 WONDIFUL ity o f [facility] 2021-11-10 2021-11-10 Outpatient R SHELDON [facility] [id number] Univers 09:00:00 09:00:00 WONDIFUL ity o f [facility] 2021-11-10 2021-11-10 Outpatient R SHELDON [facility] [id number] Univers 09:00:00 09:00:00 WONDIFUL ity o f [facility] 2021-10-23 2021-10-23 Imm/Inj Vaccine, Ang Db Cbc Fam [facility] 1. 2.840.114 [id number] Univers 09:00:00 09:10:00 Visit Chris Garciafrancisco MANCILLA 350.1.13.10 [facility] 4.2.7.2.686 Herb as HO?BLEA [id number] [address] 2021-10-23 2021-10-23 Outpatient Josefa GARCIA [facility] [id number] Univers 09:00:00 09:00:00 ORIN ity [facility] 2021-10-06 2021-10-06 [facility] 3 Memoria 14:39:00 23:59:00 RUFUS l [facility] 2021-09-03 2021-09-03 Outpatient R SHELDON [facility] [id number] Univers 10:15:00 10:15:00 WONDIFUL ity o f [facility] 2021-05-21 2021-05-[address] [facility] 1.2.840.114 [id number] Univers 00:00:00 00:00:00 Management Wondiful A HEALTH 350.1.13.10 ity of [place] 4.2.7.2.686 Herb as HO?BLEA [id number] [facility] [address] [place] MEDICAL OFFICE [facility] 2021-05-20 2021-05-20 Outpatient R [facility] [id number] Univers 10:30:00 10:30:00 ity of [facility] 2021-05-12 2021-05-12 [facility] [id number] Univers 11:15:00 11:15:00 WONDIFUL ity o ayush [facility] 2021-05-12 2021-05-12 Outpatient R SHELDON [facility] [id number] Univers 11:15:00 11:15:00 WONDIFUL ity o [facility] 2021-05-12 2021-05-12 Front Edger Lab, Ang - [facility] 1.2.840.1 [id number] Univers 10:50:03 11:13:42 Visit ConnervilleJony chuaanabela Francisco HEALTH 350.1.13.1 0 ity of [place] 4.2.7.2.686 Herb as HO?BLEA [id number] [facility] [address] [place] MEDICAL OFFICE [facility] 2021-05-12 2021-05-[address] [facility] 1.2.840.114 [id number] Univers 09:57:09 10:27:09 Visit Lukasful A HEALTH 350.1.13.10 ity of [place] 4.2.7.2.686 Herb as HO?BLEA [id number] [facility] [address] [place] MEDICAL OFFICE [facility] 2021-05-12 2021-05-12 Orders Doctor REGAN 1.2.840.114 [id number] Univers 00:00:00 00:00:00 Only Unassigned, ZONIA 350.1.13.10 ity of [place] [facility] 4.2.7.2.686 Herb as [id number] [address] 2021-04-29 2021-04-29 Outpatient R ROULA [facility] [id number] Univers 10:30:00 10:30:00 KEITH khan of [facility] 2021-04-29 2021-04-29 Outpatient R SHELDON [facility] [id number] Univers 10:00:00 10:00:00 WONDIFUL ity o f [facility] 2021-04-29 2021-04-29 Imm/Inj Vaccine, Ang Db Cbc [facility] 1. 2.840.114 [id number] Univers 09:40:44 09:50:44 Visit Yinka Hall A HEALTH 350.1.13.1 0 [facility] 4.2.7.2.686 Herb as HO?BLEA [id number] Pr patriciany ARTHUR [address] [place] [address] OFFICE [facility] 2021-04-23 2021-04-[address] [facility] 1.2.840.114 [id number] Univers 00:00:00 00:00:00 Wondiful A HEALTH 350.1.13.10 ity of [facility] 4.2.7.2.686 Herb as PROFESSIO [id number] [address] ONE 2021-03-05 2021-03-05 Outpatient PRIV PRIV [id number] [id number] [facility] 00:00:00 00:00:00 [id number] Medica l 2020-10-16 2020-10-[address] [facility] 1.2.840.114 [id number] Univers 00:00:00 00:00:00 Wondiful A Health 350.1.13.10 ity of [place] 4.2.7.2.686 Herb as Professio [id number] [address] Office [facility] One 2020-10-14 2020-10-14 Outpatient DARYL, [facility] [id number] [place] 14:20:00 23:59:00 RUFUS faye [facility] l 2020-10-01 2020-10-01 Outpatient [facility], [id number] 06:46:00 19:02:00 [address] [facility] 2020-08-26 2020-08-26 Outpatient [facility], [facility] [id number] [facility] 14:06:00 23:59:00 [facility] 2020-08-11 2020-08-11 Patient Roula [facility] 1.2.840.114 [id number] Univers 00:00:00 00:00:00 Outreach Keith PRIMARY 350.1.13.10 i ty of [facility] 4.2.7.2.686 [place] DEE [id number] [address] 2020-05-26 2020-05-26 [facility] [id number] Univers 08:15:00 08:15:00 WONDIFUL ity o f [facility] 2020-04-28 2020-04-28 Refill Doctor [facility] 1.2.840.114 [id number] Univers 00:00:00 00:00:00 Unassigned, Health 350.1.13.10 ity of [place] 4.2.7.2.686 Herb as Professio [id number] [address] Office [facility] 2020-04-21 2020-04-[address] [facility] 1.2.840.114 [id number] Univers 08:16:53 09:31:48 Visit Wondiful A Health 350.1.13.10 ity of [place] 4.2.7.2.686 Herb as Professio [id number] [facility] [address] [place] Office [facility] 2020-04-21 2020-04-21 Outpatient R SHELDON [facility] [id number] Univers 08:30:00 08:30:00 WONDIFUL ity o f [facility] 2020-04-17 2020-04-17 Refill José [facility] 1.2.840.114 [id number] Univers 00:00:00 00:00:00 Nicole Health 350.1.13.10 it y of [place] 4.2.7.2.686 Herb as Professio [id number] [address] 2020-01-15 2020-01-15 Refill Sheldon [facility] 1.2.840.114 [id number] Univers 00:00:00 00:00:00 Wondiful A Health 350.1.13.10 ity of [place] 4.2.7.2.686 Herb as Professio [id number] [address] 2019-12-11 2019-12-11 Orders Doctor JASS 1.2.840.114 [id number] Univers 00:00:00 00:00:00 Only Unassigned, ZONIA 350.1.13.10 ity of [place] [facility] 4.2.7.2.686 Herb as [id number] [address] 2019-11-20 2019-11-20 Telephone Sheldon [facility] 1.2.840.114 [id number] Univers 00:00:00 00:00:00 Wondiful A [place] 350.1.13.10 ity of [place] 4.2.7.2.686 [place] Profess[place] [id number] [address] 2019-08-25 2019-08-25 Refill José [facility] 1.2.840.114 [id number] Univers 00:00:00 00:00:00 Nicole Health 350.1.13.10 it y of [place] 4.2.7.2.686 Herb as Professio [id number] [address] 2019-07-09 2019-07-09 Patient Sheldon [facility] 1.2.840.114 [id number] Univers 00:00:00 00:00:00 Secure Msg Wondiful A Health 350.1.13.10 ity of [place] 4.2.7.2.686 Herb as Professio [id number] [address] One 2019-02-23 2019-02-23 Ancillary Rosa Jack [facility] 1.2.840 .114 [id number] Univers 09:23:22 10:19:27 Visit Daniel [place] 350.1.13.10 it[place] of [place]2.7.2.[place] [id number] Pr dical nal 179 [facility] 2019-02-19 2019-02-19 Ancillary Naomi Guzman [place] 1 .2.840.114 [id number] Univers 14:23:32 15:08:32 Visit RobDaniel 350.1.13.10 it[place] of [place]2.7.2.686 [place] Profess[place] [phone] Pr dical nal 179 [facility] 2019-02-14 2019-02-14 Ancillary Naomi Guzman [facility] [id number] Univers 07:59:21 08:44:21 Visit Daniel Rob [id number] [id number] [phone] [facility] nal 179 [facility] 2019-02-13 2019-02-13 Ancillary Cornelia Carter [facility] [id number] [facility] 09:08:28 09:54:34 Visit Daniel Rob [id number] [id number] [phone] [facility] 179 [facility] 2019-02-13 2019-02-13 Orders Doctor JASS [id number] Univers 00:00:00 00:00:00 Only Unassigned, ZONIA [id number] ity of [place] [facility] [id number] Herb as [phone] [facility] [address] 2019-02-06 2019-02-06 Office ERIN Ferris [id number] Univers 10:32:01 11:02:01 Visit Caren [facility] [id number] [id number] [phone] [facility] [address] 2019-01-24 2019-01-24 Telephone ERIN aHll [id number] Univers 00:00:00 00:00:00 [facility] [id number] ity of [place] [id number] [place]b as Professio [phone] [facility] [address] One 2019-01-19 2019-01-19 Hospital [facility] [id number] [facility] 13:07:30 23:59:00 Encounter Wondiful A [place] [id number] [place] [place] [id number] [facility] [phone] [address] [facility] 2019-01-19 2019-01-19 [facility] [id number] [facility] 12:58:23 13:06:00 Encounter Wondiful A [place] [id number] ity of [place] [id number] [facility] [phone] [facility] [address] 2019-01-19 2019-01-19 Office [facility] [id number] [facility] 10:43:23 11:29:53 Visit [facility] [id number] ity of [place] [id number] [place]b as Professio [phone] [facility] [address] [facility] One 2019-01-19 2019-01-19 Orders Doctor JASS [id number] Univers 00:00:00 00:00:00 Only Unassigned, ZONIA [id number] ity of [place] [facility] [id number] Herb as [phone] [facility] [address] Results This patient has no known results.
[2022-06-27 13:47] LABS: Hematocrit 43.8 % (36.0-45.0); Lymphocytes % 23.6 % (15.3-44.8); MCV 93.2 fL (80-100); MPV 7.5 fL (7.6-11.3)
[2022-06-27 14:05] LABS: Albumin 3.6 g/dL (3.4-5.0); Bilirubin Total 1.2 mg/dL (0.2-1.0); Potassium 3.8 mmol/L (3.5-5.1)
[2022-06-27] MEDS ORDERED: ONDANSETRON 4 MG/2 ML VIAL ONE (14:25)
[2022-06-27] MEDS ORDERED: NA CHLORIDE 0.9% 1,000 ML ONE (14:26)
--- NOTE | 2022-06-27 14:33 | RAD REPORT ---
EXAM DESCRIPTION: CTAbdomen Pelvis W Contrast - 06/27/2022 2:25 pm CLINICAL HISTORY: Abdominal pain. LLQ abd pain COMPARISON: No comparisons TECHNIQUE: Biphasic CT imaging of the abdomen and pelvis was performed with 100 ml non-ionic IV cont rast. All CT scans are performed using dose optimization technique as appropriate and may include automated exposure control or mA/KV adjustment according to patient size. FINDINGS: The lung bases are clear. The liver demonstrates fatty infiltration. Tiny gallstones likely present in the gallbladder. Spleen, pancreas, adrenal glands and right kidney are within normal limits. Mild left hydronephrosis and pro ximal left hydroureter. No bowel obstruction, free air, free fluid or abscess. 7 cm length of sigmoid colon demonstrates sign ificant wall thickening and mild surrounding inflammation. This is most likely diverticulitis. No abs cess. The appendix is normal. No evidence of significant lymphadenopathy. No suspicious bony findings. IMPRESSION: 7 cm length of acute diverticulitis is suspected involving the sigmoid colon. After appr opriate treatment, recommend followup colonoscopy further evaluation.
[2022-06-27] MEDS ORDERED: METRONIDAZOLE 500mg IVPB 500 MG/100 ML BAG IV ONE (15:36)
[2022-06-27] MEDS ORDERED: Levofloxacin 750mg IV 750 MG/150 ML BAG IV ONE (15:36)
[2022-06-27 16:03] LABS: Urine Blood 3+ (Negative); Urine Glucose Negative (Negative); Urine Protein 1+ (Negative); Urine Specific Gravity <=1.005 (1.005-1.030); Urine pH 5.5 (5.0-7.0)
--- NOTE | 2022-06-27 16:14 | EDPHYS ---
Physician Documentation [facility] Name: Rose Bustos Age: 66 yrs Sex: Female : 1955 Arrival Date: 06/27/2022 Time: 12:47 Bed 8 Private MD: ED Physician Raphael Jo HPI: 06/27 16:09 This 66 yrs old Female presents to ER via Ambulatory with complaints of Abdominal Pain. rn 16:09 The patient presents with abdominal pain in the left lower quadrant. Onset: The rn symptoms/episode began/occurred 1 week(s) ago. The symptoms do not radiate. Associated signs and symptoms: Pertinent positives: anorexia, nausea, Pertinent negatives: blood in stools. The symptoms are described as intermittent, sharp. Modifying factors: The symptoms are alleviated by nothing, the symptoms are aggravated by touching the area. Severity of pain: At its worst the pain was moderate in the emergency department the pain is unchanged. The patient has experienced similar episodes in the past. The patient has been recently seen by a physician:. Pt with multiple diagnoses of diverticulitis over the last 2 months by multiple doctors, has been on several rounds of abx, seems to improve but comes back. She did not take most recently diagnosed abx because felt that she was taking too many abx. . Historical: - Allergies: 13:04 PENICILLINS; vg1 13:04 "All the CILLINS"; vg1 - PMHx: 13:04 Diverticulitis; Cirrhosis of liver; Mass Left Ovary; vg1 - PSHx: 13:04 section; Right Knee; vg1 - Immunization history:: Client reports receiving the 2nd dose of the Covid vaccine. - Social history:: Smoking status: Patient denies any tobacco usage or history of. - Family history:: not pertinent. - Hospitalizations: : No recent hospitalization is reported. ROS: 16:09 Constitutional: Negative for fever, chills, and weight loss, Eyes: Negative for injury, rn pain, redness, and discharge, Neck: Negative for injury, pain, and swelling, Cardiovascular: Negative for chest pain, palpitations, and edema, Respiratory: Negative for shortness of breath, cough, wheezing, and pleuritic chest pain, Abdomen/GI: + LLQ abd pain Back: Negative for injury and pain, : Negative for injury, bleeding, discharge, and swelling, MS/Extremity: Negative for injury and deformity, Skin: Negative for injury, rash, and discoloration, Neuro: Negative for headache, weakness, numbness, tingling, and seizure. Exam: 16:09 Constitutional: This is a well developed, well nourished patient who is awake, alert, rn and in no acute distress. Head/Face: Normocephalic, atraumatic. Cardiovascular: Tachycardic, regular. No pulse deficits. Respiratory: No increased work of breathing, no retractions or nasal flaring. Abdomen/GI: soft, + LLQ abd tenderness, no rebound, no masses Skin: Warm, dry MS/ Extremity: Pulses equal, no cyanosis Neuro: Awake and alert, GCS 15 Vital Signs: 13:03 BP 120 / 73; Pulse 104; Resp 18; Temp 98.7(O); Pulse Ox 100% on R/A; Weight 86.64 kg; vg1 Height 5 ft. 4 in. (162.56 cm); Pain 9/10; 14:19 BP 124 / 64; Pulse 101; Resp 18; Pulse Ox 100% on R/A; ld1 15:31 BP 138 / 62; Pulse 110; Resp 18; Pulse Ox 93% on R/A; ld1 17:02 BP 126 / 61; Pulse 109; Resp 18; Pulse Ox 95% on R/A; ld1 18:15 BP 120 / 61; Pulse 114; Resp 18; Temp 98.1(O); Pulse Ox 96% on R/A; Pain 3/10; ld1 13:03 Body Mass Index 32.78 (86.64 kg, 162.56 cm) vg1 MDM: 13:01 Patient medically screened. rn 16:09 Differential diagnosis: appendicitis, bowel obstruction, diverticulitis, non-specific rn abd pain, Ureterolithiasis. Data reviewed: vital signs, nurses notes, lab test result(s), radiologic studies, CT scan, and as a result, I will discharge patient. Counseling: I had a detailed discussion with the patient and/or guardian regarding: the historical points, exam findings, and any diagnostic results supporting the discharge/admit diagnosis, lab results, radiology results, the need for outpatient follow up, to return to the emergency department if symptoms worsen or persist or if there are any questions or concerns that arise at home. Special discussion: Based on the patient's Hx, exam, and Dx evaluation, there is no indication for emergent surgery or inpatient Tx. It is understood by the patient/guardian that if the Sx's persist or worsen they need to return immediately for re-evaluation. I discussed with the patient/guardian in detail that at this point there is no indication for admission to the hospital. It is understood, however, that if the symptoms persist or worsen the patient needs to return immediately for re-evaluation. Based on the history and exam findings, there is no indication for further emergent testing or inpatient evaluation. I discussed with the patient/guardian the need to see the map maker for further evaluation of the symptoms. I discussed with the patient/guardian the need to see the primary care provider for further evaluation of the symptoms. ED course: Pt has scheduled colonoscopy given recurrent diverticulitis. CT shows uncomplicated diverticulitis and she did not take most recent abx, does not qualify for failed outpt treatment. Will dc home with abx and explained all to patient and . . 06/27 13:11 Order name: CBC with Diff; Complete Time: 14:09 06/27 13:11 Order name: CMP; Complete Time: 14:09 06/27 13:11 Order name: Lipase; Complete Time: 14:09 06/27 13:11 Order name: Urine Microscopic Only 06/27 16:04 Order name: Urine Dipstick-Ancillary [facility] 06/27 16:23 Order name: Urine Culture [facility] 06/27 13:07 Order name: Urine Dipstick-Ancillary (obtain specimen); Complete Time: 16:27 [facility] 06/27 13:11 Order name: IV Saline Lock; Complete Time: 13:53 06/27 14:08 Order name: CT Abd/Pelvis - IV Contrast Only; Complete Time: 14:39 rn 06/27 13:11 Order name: Labs collected and sent; Complete Time: 13:53 rn Administered Medications: 14:32 Drug: NS 0.9% 1000 ml Route: IV; Rate: 1000 ml; Site: right antecubital; ld1 15:30 Drug: Zofran (Ondansetron) 4 mg Route: IVP; Site: right antecubital; ld1 16:02 Drug: Flagyl (metroNIDAZOLE) 500 mg Volume: 100 ml; Route: IVPB; Rate: 200 ml/hr; ld1 Infused Over: 30 mins; Site: right antecubital; 16:58 Follow up: Response: No adverse reaction; IV Status: Completed infusion ld1 16:58 Drug: LevaQUIN (levofloxacin) 750 mg Volume: 150 ml; Route: IVPB; Infused Over: 90 ld1 mins; Site: right antecubital; Disposition Summary: 06/27/22 16:13 Discharge Ordered Location: Home rn Problem: new rn Symptoms: have improved rn Condition: Stable rn Diagnosis - Diverticulitis of large intestine without perforation or abscess without bleeding rn Followup: rn - With: Leonid Crow MD - When: As needed - Reason: Recheck today's complaints, Re-evaluation by your physician Discharge Instructions: - Discharge Summary Sheet rn - High-Fiber Diet rn - Diverticulitis rn Forms: - Medication Reconciliation Form rn - Thank You Letter rn - Antibiotic finance attorney - Prescription Opioid Use rn Prescriptions: - Flagyl 500 mg Oral Tablet - take 1 tablet by ORAL route every 8 hours for 10 days; 30 tablet; Refills: 0, rn Product Selection Permitted - levofloxacin 500 mg Oral Tablet - take 1 tablet by ORAL route once daily for 10 days; 10 tablet; Refills: 0, rn Product Selection Permitted - ondansetron 4 mg Oral - take 4 milligrams by SUBLINGUAL route every 8 hours; 15 tablet; Refills: 0, rn Product Selection Permitted Signatures: Dispatcher [employer] EDRaphael Wylie MD MD rn Garcia, Victoria, RN RN vg1 Yi Cortez RN RN ld1 Corrections: (The following items were deleted from the chart) 14:22 13:12 Stone Protocol+CT.RAD.BRZ ordered. EDPR EDMS
--- NOTE | 2022-06-27 16:14 | ER ---
Nurse's Notes [facility] Name: Rose Bustos Age: 66 yrs Sex: Female : 1955 Arrival Date: 06/27/2022 Time: 12:47 Bed 8 Private MD: Diagnosis: Diverticulitis of large intestine without perforation or abscess without bleeding Presentation: 06/27 13:03 Chief complaint: Patient states: sudden onset of Left flank pain that began this vg1 morning around 0500 with NV, also stated urine urgency. Coronavirus screen: Vaccine status: Patient reports receiving the 2nd dose of the covid vaccine. Client denies travel out of the [place] in the last 14 days. Ebola Screen: Patient negative for fever greater than or equal to 101.5 degrees Fahrenheit, and additional compatible Ebola Virus Disease symptoms. Initial Sepsis Screen: Does the patient meet any 2 criteria? HR > 90 bpm. Does the patient have a suspected source of infection? No. Patient's initial sepsis screen is negative. Risk Assessment: Do you want to hurt yourself or someone else? Patient reports no desire to harm self or others. Onset of symptoms was June 27, 2022. 13:03 Method Of Arrival: Ambulatory vg1 13:03 Acuity: GREG 3 vg1 Triage Assessment: 13:04 General: Appears uncomfortable, Behavior is cooperative. Pain: Complains of pain in vg1 posterior aspect of left lateral abdomen Pain currently is 9 out of 10 on a pain scale. Pain began this morning around 0500. GI: Abdomen is round non-distended. : Reports urgency. Historical: - Allergies: 13:04 PENICILLINS; vg1 13:04 "All the CILLINS"; vg1 - PMHx: 13:04 Diverticulitis; Cirrhosis of liver; Mass Left Ovary; vg1 - PSHx: 13:04 section; Right Knee; vg1 - Immunization history:: Client reports receiving the 2nd dose of the Covid vaccine. - Social history:: Smoking status: Patient denies any tobacco usage or history of. - Family history:: not pertinent. - Hospitalizations: : No recent hospitalization is reported. Screenin:19 [facility] ED Fall Risk Assessment (Adult) History of falling in the last 3 months, ld1 including since admission No falls in past 3 months (0 pts). Abuse screen: Denies threats or abuse. Denies injuries from another. Nutritional screening: No deficits noted. Tuberculosis screening: No symptoms or risk factors identified. Assessment: 14:20 Reassessment: Patient appears in no apparent distress at this time. See triage ld1 assessment. General: Appears in no apparent distress. comfortable, Behavior is calm, cooperative, appropriate for age. Pain: Complains of pain in abdomen and posterior aspect of left lateral abdomen Pain does not radiate. Pain currently is 7 out of 10 on a pain scale. Quality of pain is described as sharp, throbbing, Pain began gradually. Neuro: Level of Consciousness is awake, alert, obeys commands, Oriented to person, place, time, situation. Cardiovascular: Capillary refill < 3 seconds Patient's skin is warm and dry. Respiratory: Airway is patent Respiratory effort is even, unlabored. GI: Abdomen is flat, non-distended, Bowel sounds present X 4 quads. Abd is soft Abdomen is tender to palpation Reports lower abdominal pain, upper abdominal pain. : No signs and/or symptoms were reported regarding the genitourinary system. 17:02 Reassessment: Patient appears in no apparent distress at this time. Patient and/or ld1 family updated on plan of care and expected duration. Pain level reassessed. Patient is alert, oriented x 3, equal unlabored respirations, skin warm/dry/pink. 18:15 Reassessment: Patient appears in no apparent distress at this time. Patient and/or ld1 family updated on plan of care and expected duration. Pain level reassessed. Patient is alert, oriented x 3, equal unlabored respirations, skin warm/dry/pink. Patient states feeling better. Vital Signs: 13:03 BP 120 / 73; Pulse 104; Resp 18; Temp 98.7(O); Pulse Ox 100% on R/A; Weight 86.64 kg; vg1 Height 5 ft. 4 in. (162.56 cm); Pain 9/10; 14:19 BP 124 / 64; Pulse 101; Resp 18; Pulse Ox 100% on R/A; ld1 15:31 BP 138 / 62; Pulse 110; Resp 18; Pulse Ox 93% on R/A; ld1 17:02 BP 126 / 61; Pulse 109; Resp 18; Pulse Ox 95% on R/A; ld1 18:15 BP 120 / 61; Pulse 114; Resp 18; Temp 98.1(O); Pulse Ox 96% on R/A; Pain 3/10; ld1 13:03 Body Mass Index 32.78 (86.64 kg, 162.56 cm) vg1 ED Course: 12:47 Patient arrived in ED. as 13:01 Raphael Jo MD is Attending Physician. rn 13:04 Triage completed. vg1 13:04 Arm band placed on. vg1 13:47 Yi Cortez, SANDRITA is Primary Nurse. ld1 13:53 Lipase Sent. bc6 13:53 CMP Sent. bc6 13:53 CBC with Diff Sent. bc6 13:53 Urine Microscopic Only Sent. bc6 13:53 Initial lab(s) drawn, by me, sent to lab. Inserted saline lock: 20 gauge in right bc6 antecubital area, using aseptic technique. 14:19 Patient has correct armband on for positive identification. Placed in gown. Bed in low ld1 position. Call light in reach. Side rails up X2. cardiothoracic icu rn on. Pulse ox on. Sitter at bedside. Door closed. Noise minimized. Warm blanket given. 14:19 No provider procedures requiring assistance completed. ld1 14:26 CT Abd/Pelvis - IV Contrast Only In Process Unspecified. EDMS 16:13 Leonid Crow MD is Referral Physician. rn 16:27 Urine Culture Sent. bc6 18:29 IV discontinued, intact, bleeding controlled, No redness/swelling at site. ld1 Administered Medications: 14:32 Drug: NS 0.9% 1000 ml Route: IV; Rate: 1000 ml; Site: right antecubital; ld1 15:30 Drug: Zofran (Ondansetron) 4 mg Route: IVP; Site: right antecubital; ld1 16:02 Drug: Flagyl (metroNIDAZOLE) 500 mg Volume: 100 ml; Route: IVPB; Rate: 200 ml/hr; ld1 Infused Over: 30 mins; Site: right antecubital; 16:58 Follow up: Response: No adverse reaction; IV Status: Completed infusion ld1 16:58 Drug: LevaQUIN (levofloxacin) 750 mg Volume: 150 ml; Route: IVPB; Infused Over: 90 ld1 mins; Site: right antecubital; Medication: 14:19 VIS not applicable for this client. ld1 Outcome: 16:13 Discharge ordered by . rn 18:29 Discharged to home ambulatory, with family. ld1 18:29 Condition: stable 18:29 Discharge instructions given to patient, family, Instructed on discharge instructions, follow up and referral plans. medication usage, Demonstrated understanding of instructions, follow-up care, medications, Prescriptions given X 3. 18:30 Patient left the ED. ld1 Signatures: Dispatcher [employer] EDMS Stephanie Murguia Roman, MD MD rn Garcia, Victoria, RN RN 1 Yi Cortez RN RN ld1 Maame Henderson [facility]
[2022-06-27 16:20] LABS: Urine Bacteria Loaded /HPF (<20); Urine RBC <5 /HPF (None Seen)
[2022-06-27 19:01] VITALS: BP 120/61; TEMP 98.1; O2SAT 96
== END 2022-06-27 18:30 | disposition home or self-care (01) ==
LOC: ER 12:45
DX: K57.32 Diverticulitis of large intestine without perforation or abscess without bleeding (principal); Z88.0 Allergy status to penicillin
CPT/HCPCS: 96365; 87088; 85025; 87086; 36415; 87077; 87186; 83690; 80053; 74177; 96375; 99285; Q9967; J7030; J2405; 81003; 81015

== ENCOUNTER 2023-11-08 08:33 | Inpatient (IN) | payer OTHER ==
--- OUTSIDE RECORDS SUMMARY | 2023-11-08 14:32 | XMS REPORT | Continuity of Care Document ---
Author Name Unknown Address [address] [facility] [place] [address] [facility] Address [address] [facility] [place] [address] Care Team Providers Care Medical Specialist Name Role Phone BRANDON GONZALEZ Primary Care Physician UnavailMIYA Vasquez Attending Clinician UnavailJass Carr MD Attending Clinician [phone] MARTHA ALEJANDRE Attending Clinician Unavailangela Alejandre MD, Martha Oconnor Attending Clinician [phone] SERA DELGADO Attending Clinician UnavailBridgett Perez NP Attending Clinician [phone] ADIA MORELAND Attending Clinician Unavail able Adia Saenz Attending Clinician [phone] BRANDON GONZALEZ Attending Clinician Unavailable Brandon Gonzalez MD Attending Clinician [phone] Doctor Unassigned, [place] Attending Clinician U navailable Lab, Ang - Db Attending Clinician Unavailable RUFUS BRITO Attending Clinician Unavailable RADIOLOGY Attending Clinician Unavailable Radiology Attending Clinician Unavailable KALI HALL Attending Clinician Unavaila ble Vaccine, Ang Db Cbc Fam Attending Clinician Unav ailable Anene EXECUTIVE [employer] PROGRAMS DIRECTOR, Kendra Attending Clinician [phone] KENDRA GARCIA Attending Clinician Unavailable Isabel ALDANA, Kali Hopson Attending Clinician [phone] KEITH CELESTE Attending Clinician Unavail able Keith Celeste DO Attending Clinician Guero RING STAMPER, Rosa K Attending Clinician Unavail able Liane ALDANA, Daniel L Attending Clinician [phone] Paulo Orellana PT, Naomi Attending Clinician Un available Raul PT, Cornelia Attending Clinician Unavailable Barrington GANP, Caren Torres Attending Clinician JASS SNYDER Admitting Clinician Unavailable BRANDON GONZALEZ Admitting Clinician Unavailable RUFUS BRITO Admitting Clinician Unavailable JOSÉ MIGUEL CROCKETT Admitting Clinician Unavailable MARTHA ALEJANDRE Admitting Clinician Unavailabl e Payers Payer Name Policy Type Policy Number Effective Date Expirati on Date Source [employer] II [id number] 2020 00:00:00 MEDICARE OBS/INPT PART A ONLY [id number] 2018 00:00:00 Problems Condition Name Condition Details Condition Category Status Onset Date Resolution Date Last Treatment Date Treating Clinician Comments Source Closed displaced fracture of right femoral neck Closed displaced fracture of right femoral neck Disease Active - 00:00: 00 [facility] Nocturia Nocturia Disease Active 02-28 00:00: 00 [facility] Acute cystitis without hematuria Acute cystitis without hematuria Disease Active 02-28 00:00: 00 [facility] Elevated AFP Elevated AFP Disease Active 2018-06 00:00: 00 [facility] Erythrocyt osis Erythrocyt osis Disease Active 2018-06 00:00: 00 [facility] History of prediabete s History of prediabete s Disease Active 2018-06 00:00: 00 [facility] Prediabete s Prediabete s Disease Active 2018-06 00:00: 00 [facility] Osteoarthr itis of cervical spine, unspecifie d spinal osteoarthr itis complicati on status Osteoarthr itis of cervical spine, unspecifie d spinal osteoarthr itis complicati on status Disease Active 8- 00:00: 00 [facility] DDD (degenerat aurelia disc disease), cervical DDD (degenerat aurelia disc disease), cervical Disease Active 8-19 00:00: 00 [facility] Transamini tis Transamini tis Disease Active 2016-06 2 00:00: 00 [facility] Hyperlipid emia Hyperlipid emia Disease Active 07-23 00:00: 00 [facility] Fatty liver Fatty liver Disease Active [facility] Hair loss Hair loss Disease Active [facility] Arthritis Arthritis Disease Active [facility] Allergies, Adverse Reactions, Alerts Allergy Name Allergy Type Status Severity Reaction(s) Onset Date Inactive Date Treating Clinician Comments Source Penicill ins Propensi ty to adverse reaction s Active Hives 2017-06 00:00: 00 [facility] PENICILL INS Drug Class Active Hives 2017-06 00:00: 00 [facility] Penicill ins Propensi ty to adverse reaction s Active Hives 2017-06 00:00: 00 [facility] Penicill ins Propensi ty to adverse reaction s Active Hives 2017-06 00:00: 00 [facility] Penicill in Propensi ty to adverse reaction s Active Unknown - See comments 07-23 00:00: 00 [facility] PENICILL IN DRUG INGREDI Active Unknown-Cmnt 07-23 00:00: 00 [facility] Social History Social Habit Start Date Stop Date Quantity Comments Source Gender identity [facility] Alcoholic beverage intake 2023-11-01 00:00:00 2023-11-01 00:00:00 0 /d [facility] Tobacco use and exposure 2023-10-31 00:00:00 2023-10-31 00:00:00 Smokeless tobacco non-user [facility] Alcohol intake 2023-02-28 00:00:00 2023-02-28 00:00:00 0 /d [facility] Exposure to SARS-CoV-2 (event) 2022-04-24 00:00:00 2022-05-04 09:42:00 Not sure [facility] History of Social function 2022-04-22 00:00:00 2022-04-22 00:00:00 [facility] Sex assigned at 1955 00:00:00 1955 00:00:00 [facility] Smoking Status Start Date Stop Date Source Never smoked tobacco [facility] Medications Ordered Medication Name Filled Medication Name Start Date Stop Date Current Medication? Ordering Clinician Indication Dosage Frequency Signature (SIG) Comments Components Source acetaminoph en (TYLENOL) tablet 500 mg 11-01 01:00: 00 Yes 500mg 500 mg, Oral, TID, First dose on Tue11/01/23 at 2000, Until Discontinu ed, Routine [facility] HYDROcodone -acetaminop hen (NORCO) 10-325 mg tablet 1 tablet 10-31 20:29: 17 Yes 1{tbl} 1 tablet, Oral, Q6HPRN, Starting on Tue11/01/23 at 1529, Until Discontinu ed, Routine, Pain (scale 7-10) [facility] bisacodyL (DULCOLAX) tablet 5 mg 10-31 14:00: 00 Yes 5mg 5 mg, Oral, DAILY, First dose on Tue11/01/23 at 0900, Until Discontinu ed, Routine [facility] enoxaparin (LOVENOX) injection 40 mg 10-31 14:00: 00 Yes 40mg 40 mg, Subcutaneo us, DAILY, First dose (after last modificati on) on Tue11/01/23 at 0900, Until Discontinu ed, Routine [facility] polyethylen e glycol 3350 powder 17 g 10-31 13:00: 00 Yes 17g 17 g, Oral, BID, First dose (after last modificati on) on Tue11/01/23 at 0800, Until Discontinu ed, Routine [facility] melatonin (MELATIN) tablet 3 mg 10-31 02:00: 00 Yes 3mg [facility] traMADoL (ULTRAM) tablet 50 mg 10-31 00:15: 00 Yes 50mg 50 mg, Oral, Q6H, First dose on Tue10/31/23 at 1915, Until Discontinu ed, Routine [facility] ondansetron (ZOFRAN (PF)) injection 4 mg 10-30 03:14: 00 Yes 4mg 4 mg, Slow IV Push, Q6HPRN, Starting on Tue10/30/23 at 2214, Until Discontinu ed, Routine, Nausea and Vomiting (N/V) [facility] NaCl 0.9% (NS) IV infusion 1,000 mL 10-30 01:00: 00 10-30 00:26 :00 No 1000mL at 150 mL/hr, IV Infusion, ONCE, 1 dose, On Tue10/30/23 at 2000, [facility] FENTanyl PF (SUBLIMAZE (PF)) injection 50 mcg 10-29 23:30: 00 10-29 23:48 :00 No 50ug 50 mcg, Slow IV Push, ONCE, 1 dose, On Tue10/30/23 at 1830, [facility] FENTanyl PF (SUBLIMAZE (PF)) injection 50 mcg 10-29 21:15: 00 10-29 20:30 :00 No 50ug 50 mcg, Slow IV Push, ONCE, 1 dose, On Tue10/30/23 at 1615, [facility] ondansetron (ZOFRAN (PF)) injection 8 mg 10-29 20:30: 00 10-29 20:30 :00 No 8mg 8 mg, Slow IV Push, ONCE, 1 dose, On Tue10/30/23 at 1530, [facility] acetaminoph en (OFIRMEV) IV piggyback 1,000 mg 10-29 19:45: 00 10-29 19:28 :00 No 1000mg 1,000 mg, IV Piggyback, at 400 mL/hr Administer over 15 Minutes, ONCE, 1 dose, On 10/30/23 at 1445, YOSI, Is the patient strict NPO and unable to tolerate oral medication s? Yes [facility] ketorolac (TORADOL) injection 15 mg 10-29 19:45: 00 10-29 19:05 :00 No 15mg 15 mg, Slow IV Push, ONCE, 1 dose, On Tue10/30/23 at 1445, YOSI [facility] NaCl 0.9% (NS) bolus infusion 500 mL 10-29 19:00: 00 10-29 19:28 :00 No 500mL at 999 mL/hr, 500 mL, IV Infusion, ONCE, 1 dose, On Tue10/30/23 at 1400, STAT [facility] ciprofloxac in HCl (CIPRO) 500 mg tablet 2022-06 0 00:00: 00 Yes [id number] 500mg Take 1 tablet by mouth every 12 (twelve) hours. [facility] ciprofloxac in HCl (CIPRO) 500 mg tablet 03-04 00:00: 00 Yes [id number] 500mg Take 1 tablet by mouth every 12 (twelve) hours. [facility] cranberry fruit extract (ELLURA ORAL) 02-28 10:21: 04 Yes Take by mouth. [facility] Magnesium 250 mg Tab 02-28 10:20: 53 Yes Take by mouth 2 (two) times daily. [facility] sulfamethox azole-trime thoprim (BACTRIM DS) 800-160 mg per tablet 11-10 00:00: 00 02-28 00:00 :00 No 1{tbl} Take 1 tablet by mouth in the morning and 1 tablet in the evening. [facility] rosuvastati n 5 mg tablet 11-08 00:00: 00 Yes [id number] 5mg Take 1 tablet by mouth in the morning. [facility] gadoteridol (PROHANCE-2 0 mL) injection 0.2 mL/kg 09-23 20:00: 00 09-23 19:52 :00 No [id number] .2mL/kg 0.2 mL/kg, Intravenou s, ONCE, 1 dose, On Tue09/23/22 at 1500, Routine [facility] iopamidol (ISOVUE 370-500 mL) injection 73 mL 2021-06 18:15: 00 05-04 18:15 :00 No [id number] 73mL 73 mL, Intravenou s, ONCE, 1 dose, On Tue05/04/22 at 1215, Routine [facility] ondansetron 4 mg tablet 2021-06 00:00: 00 02-28 00:00 :00 No [id number] 1-2 tablets every 6 hours as needed for nausea [facility] metroNIDAZO LE 500 mg tablet 2021-06 00:00: 00 05-15 05:59 :00 No [id number] 500mg Take 1 tablet by mouth every 8 (eight) hours for 10 days. [facility] levoFLOXaci n 500 mg tablet 2021-06 00:00: 00 05-15 05:59 :00 No [id number] 500mg Take 1 tablet by mouth every 24 (twenty-fo ur) hours for 10 days. [facility] predniSONE 20 mg tablet 2021-06 00:00: 00 05-12 05:59 :00 No [id number] 40mg Take 2 tablets by mouth in the morning for 7 days. [facility] ciprofloxac in HCl (CIPRO) 500 mg tablet 2021-06 00:00: 00 11-08 00:00 :00 No [id number] 500mg Take 1 tablet by mouth every 12 (twelve) hours. [facility] RETIN-A MICRO PUMP 0.06 % GlwP 02-16 00:00: 00 Yes [facility] cranberry fruit extract (ELLURA ORAL) 2020-06 09:54: 46 Yes 1{capsu le} Take by mouth. [facility] rosuvastati n 5 mg tablet 2020-06 00:00: 00 11-08 00:00 :00 No [id number] 5mg Take 1 tablet by mouth daily. [facility] Immunizations Ordered Immunization Name Filled Immunization Name Date Status Comments Source Influenza Virus Vaccine 2022-04-07 00:00:00 Completed [facility] Influenza Virus Vaccine 2022-04-07 00:00:00 Completed [facility] Influenza Virus Vaccine 2022-04-07 00:00:00 Completed [facility] Influenza Virus Vaccine 2022-04-07 00:00:00 Completed [facility] Influenza Virus Vaccine 2022-04-07 00:00:00 Completed [facility] Influenza Virus Vaccine 2022-04-07 00:00:00 Completed [facility] Influenza High Dose Quad 2022-04-07 00:00:00 Completed [facility] Influenza Virus Vaccine 2022-04-07 00:00:00 Completed [facility] Influenza High Dose Quad 2022-04-07 00:00:00 Completed [facility] Influenza Virus Vaccine 2022-04-07 00:00:00 Completed [facility] Influenza High Dose Quad 2022-04-07 00:00:00 Completed [facility] Influenza Virus Vaccine 2022-04-07 00:00:00 Completed [facility] Influenza High Dose Quad 2022-04-07 00:00:00 Completed [facility] Influenza Virus Vaccine 2022-04-07 00:00:00 Completed [facility] Influenza High Dose Quad 2022-04-07 00:00:00 Completed [facility] Influenza Virus Vaccine 2022-04-07 00:00:00 Completed [facility] Influenza High Dose Quad 2022-04-07 00:00:00 Completed [facility] Influenza Virus Vaccine 2022-04-07 00:00:00 Completed [facility] Influenza High Dose Quad 2022-04-07 00:00:00 Completed [facility] Influenza Virus Vaccine 2022-04-07 00:00:00 Completed [facility] Influenza High Dose Quad 2022-04-07 00:00:00 Completed [facility] Influenza Virus Vaccine 2022-04-07 00:00:00 Completed [facility] Influenza High Dose Quad 2022-04-07 00:00:00 Completed [facility] Influenza Virus Vaccine 2022-04-07 00:00:00 Completed [facility] Influenza High Dose Quad 2022-04-07 00:00:00 Completed [facility] Influenza Virus Vaccine 2022-04-07 00:00:00 Completed [facility] Influenza Virus Vaccine 2022-04-07 00:00:00 Completed [facility] SARS-COV-2 COVID-19 PFIZER PEMA-SUCROSE VACCINE (ZAMBRANO TOP) 2021-10-23 00:00:00 Completed [facility] SARS-COV-2 COVID-19 PFIZER PEMA-SUCROSE VACCINE (ZAMBRANO TOP) 2021-10-23 00:00:00 Completed [facility] SARS-COV-2 COVID-19 PFIZER PEMA-SUCROSE VACCINE (ZAMBRANO TOP) 2021-10-23 00:00:00 Completed [facility] SARS-COV-2 COVID-19 PFIZER PEMA-SUCROSE VACCINE (ZAMBRANO TOP) 2021-10-23 00:00:00 Completed [facility] SARS-COV-2 COVID-19 PFIZER PEMA-SUCROSE VACCINE (ZAMBRANO TOP) 2021-10-23 00:00:00 Completed [facility] SARS-COV-2 COVID-19 PFIZER PEMA-SUCROSE VACCINE (ZAMBRANO TOP) 2021-10-23 00:00:00 Completed [facility] SARS-COV-2 COVID-19 PFIZER PEMA-SUCROSE VACCINE (ZAMBRANO TOP) 2021-10-23 00:00:00 Completed [facility] SARS-COV-2 COVID-19 PFIZER PEMA-SUCROSE VACCINE (ZAMBRANO TOP) 2021-10-23 00:00:00 Completed [facility] SARS-COV-2 COVID-19 PFIZER PEMA-SUCROSE VACCINE (ZAMBRANO TOP) 2021-10-23 00:00:00 Completed [facility] SARS-COV-2 COVID-19 PFIZER PEMA-SUCROSE VACCINE (ZAMBRANO TOP) 2021-10-23 00:00:00 Completed [facility] SARS-COV-2 COVID-19 PFIZER PEMA-SUCROSE VACCINE (ZAMBRANO TOP) 2021-10-23 00:00:00 Completed [facility] SARS-COV-2 COVID-19 PFIZER PEMA-SUCROSE VACCINE (ZAMBRANO TOP) 2021-10-23 00:00:00 Completed [facility] SARS-COV-2 COVID-19 PFIZER PEMA-SUCROSE VACCINE (ZAMBRANO TOP) 2021-10-23 00:00:00 Completed [facility] SARS-COV-2 COVID-19 PFIZER PEMA-SUCROSE VACCINE (ZAMBRANO TOP) 2021-10-23 00:00:00 Completed [facility] SARS-COV-2 COVID-19 PFIZER PEMA-SUCROSE VACCINE (ZAMBRANO TOP) 2021-10-23 00:00:00 Completed [facility] SARS-COV-2 COVID-19 PFIZER PEMA-SUCROSE VACCINE (ZAMBRANO TOP) 2021-10-23 00:00:00 Completed [facility] SARS-COV-2 COVID-19 PFIZER PEMA-SUCROSE VACCINE (ZAMBRANO TOP) 2021-10-23 00:00:00 Completed [facility] SARS-COV-2 COVID-19 PFIZER PEMA-SUCROSE VACCINE (ZAMBRANO TOP) 2021-10-23 00:00:00 Completed [facility] SARS-COV-2 COVID-19 PFIZER PEMA-SUCROSE VACCINE (ZAMBRANO TOP) 2021-10-23 00:00:00 Completed [facility] SARS-COV-2 COVID-19 PFIZER PEMA-SUCROSE VACCINE (ZAMBRANO TOP) 2021-10-23 00:00:00 Completed [facility] SARS-COV-2 COVID-19 PFIZER PEMA-SUCROSE VACCINE (ZAMBRANO TOP) 2021-10-23 00:00:00 Completed [facility] SARS-COV-2 COVID-19 PFIZER PEMA-SUCROSE VACCINE (ZAMBRANO TOP) 2021-10-23 00:00:00 Completed [facility] SARS-COV-2 COVID-19 PFIZER PEMA-SUCROSE VACCINE (ZAMBRANO TOP) 2021-10-23 00:00:00 Completed [facility] SARS-COV-2 COVID-19 PFIZER PEMA-SUCROSE VACCINE (ZAMBRANO TOP) 2021-10-23 00:00:00 Completed [facility] SARS-COV-2 COVID-19 PFIZER PEMA-SUCROSE VACCINE (ZAMBRANO TOP) 2021-10-23 00:00:00 Completed [facility] Pneumococcal Polysaccharide, PPSV23 (PNEUMOVAX) 2021-05-12 00:00:00 Completed [facility] Pneumococcal Polysaccharide, PPSV23 (PNEUMOVAX) 2021-05-12 00:00:00 Completed [facility] Pneumococcal Polysaccharide, PPSV23 (PNEUMOVAX) 2021-05-12 00:00:00 Completed [facility] Pneumococcal Polysaccharide, PPSV23 (PNEUMOVAX) 2021-05-12 00:00:00 Completed [facility] Pneumococcal Polysaccharide, PPSV23 (PNEUMOVAX) 2021-05-12 00:00:00 Completed [facility] Pneumococcal Polysaccharide, PPSV23 (PNEUMOVAX) 2021-05-12 00:00:00 Completed [facility] Pneumococcal Polysaccharide, PPSV23 (PNEUMOVAX) 2021-05-12 00:00:00 Completed [facility] Pneumococcal Polysaccharide, PPSV23 (PNEUMOVAX) 2021-05-12 00:00:00 Completed [facility] Pneumococcal Polysaccharide, PPSV23 (PNEUMOVAX) 2021-05-12 00:00:00 Completed [facility] Pneumococcal Polysaccharide, PPSV23 (PNEUMOVAX) 2021-05-12 00:00:00 Completed [facility] Pneumococcal Polysaccharide, PPSV23 (PNEUMOVAX) 2021-05-12 00:00:00 Completed [facility] Pneumococcal Polysaccharide, PPSV23 (PNEUMOVAX) 2021-05-12 00:00:00 Completed [facility] Pneumococcal Polysaccharide, PPSV23 (PNEUMOVAX) 2021-05-12 00:00:00 Completed [facility] Pneumococcal Polysaccharide, PPSV23 (PNEUMOVAX) 2021-05-12 00:00:00 Completed [facility] Pneumococcal Polysaccharide, PPSV23 (PNEUMOVAX) 2021-05-12 00:00:00 Completed [facility] Pneumococcal Polysaccharide, PPSV23 (PNEUMOVAX) 2021-05-12 00:00:00 Completed [facility] Pneumococcal Polysaccharide, PPSV23 (PNEUMOVAX) 2021-05-12 00:00:00 Completed [facility] Pneumococcal Polysaccharide, PPSV23 (PNEUMOVAX) 2021-05-12 00:00:00 Completed [facility] Pneumococcal Polysaccharide, PPSV23 (PNEUMOVAX) 2021-05-12 00:00:00 Completed [facility] Pneumococcal Polysaccharide, PPSV23 (PNEUMOVAX) 2021-05-12 00:00:00 Completed [facility] Pneumococcal Polysaccharide, PPSV23 (PNEUMOVAX) 2021-05-12 00:00:00 Completed [facility] Pneumococcal Polysaccharide, PPSV23 (PNEUMOVAX) 2021-05-12 00:00:00 Completed [facility] Pneumococcal Polysaccharide, PPSV23 (PNEUMOVAX) 2021-05-12 00:00:00 Completed [facility] Pneumococcal Polysaccharide, PPSV23 (PNEUMOVAX) 2021-05-12 00:00:00 Completed [facility] Pneumococcal Polysaccharide, PPSV23 (PNEUMOVAX) 2021-05-12 00:00:00 Completed [facility] Pneumococcal Polysaccharide, PPSV23 (PNEUMOVAX) 2021-05-12 00:00:00 Completed [facility] Pneumococcal Polysaccharide, PPSV23 (PNEUMOVAX) 2021-05-12 00:00:00 Completed [facility] SARS-COV-2 COVID-19 PFIZER VACCINE 2021-04-29 00:00:00 Completed [facility] SARS-COV-2 COVID-19 PFIZER VACCINE 2021-04-29 00:00:00 Completed [facility] SARS-COV-2 COVID-19 PFIZER VACCINE 2021-04-29 00:00:00 Completed [facility] SARS-COV-2 COVID-19 PFIZER VACCINE 2021-04-29 00:00:00 Completed [facility] SARS-COV-2 COVID-19 PFIZER VACCINE 2021-04-29 00:00:00 Completed [facility] SARS-COV-2 COVID-19 PFIZER VACCINE 2021-04-29 00:00:00 Completed [facility] SARS-COV-2 COVID-19 PFIZER VACCINE 2021-04-29 00:00:00 Completed [facility] SARS-COV-2 COVID-19 PFIZER VACCINE 2021-04-29 00:00:00 Completed [facility] SARS-COV-2 COVID-19 PFIZER VACCINE 2021-04-29 00:00:00 Completed [facility] SARS-COV-2 COVID-19 PFIZER VACCINE 2021-04-29 00:00:00 Completed [facility] SARS-COV-2 COVID-19 PFIZER VACCINE 2021-04-29 00:00:00 Completed [facility] SARS-COV-2 COVID-19 PFIZER VACCINE 2021-04-29 00:00:00 Completed [facility] SARS-COV-2 COVID-19 PFIZER VACCINE 2021-04-29 00:00:00 Completed [facility] SARS-COV-2 COVID-19 PFIZER VACCINE 2021-04-29 00:00:00 Completed [facility] SARS-COV-2 COVID-19 PFIZER VACCINE 2021-04-29 00:00:00 Completed [facility] SARS-COV-2 COVID-19 PFIZER VACCINE 2021-04-29 00:00:00 Completed [facility] SARS-COV-2 COVID-19 PFIZER VACCINE 2021-04-29 00:00:00 Completed [facility] SARS-COV-2 COVID-19 PFIZER VACCINE 2021-04-29 00:00:00 Completed [facility] SARS-COV-2 COVID-19 PFIZER VACCINE 2021-04-29 00:00:00 Completed [facility] SARS-COV-2 COVID-19 PFIZER VACCINE 2021-04-29 00:00:00 Completed [facility] SARS-COV-2 COVID-19 PFIZER VACCINE 2021-04-29 00:00:00 Completed [facility] SARS-COV-2 COVID-19 PFIZER VACCINE 2021-04-29 00:00:00 Completed [facility] SARS-COV-2 COVID-19 PFIZER VACCINE 2021-04-29 00:00:00 Completed [facility] SARS-COV-2 COVID-19 PFIZER VACCINE 2021-04-29 00:00:00 Completed [facility] SARS-COV-2 COVID-19 PFIZER VACCINE 2021-04-29 00:00:00 Completed [facility] SARS-COV-2 COVID-19 PFIZER VACCINE 2021-04-29 00:00:00 Completed [facility] SARS-COV-2 COVID-19 PFIZER VACCINE 2021-04-29 00:00:00 Completed [facility] Influenza High Dose 2021-02-13 00:00:00 Completed [facility] Influenza High Dose 2021-02-13 00:00:00 Completed [facility] Influenza High Dose 2021-02-13 00:00:00 Completed [facility] Influenza High Dose 2021-02-13 00:00:00 Completed [facility] Influenza High Dose 2021-02-13 00:00:00 Completed [facility] Influenza High Dose 2021-02-13 00:00:00 Completed [facility] Influenza High Dose Quad 2021-02-13 00:00:00 Completed [facility] Influenza High Dose 2021-02-13 00:00:00 Completed [facility] Influenza High Dose Quad 2021-02-13 00:00:00 Completed [facility] Influenza High Dose 2021-02-13 00:00:00 Completed [facility] Influenza High Dose Quad 2021-02-13 00:00:00 Completed [facility] Influenza High Dose 2021-02-13 00:00:00 Completed [facility] Influenza High Dose Quad 2021-02-13 00:00:00 Completed [facility] Influenza High Dose 2021-02-13 00:00:00 Completed [facility] Influenza High Dose Quad 2021-02-13 00:00:00 Completed [facility] Influenza High Dose 2021-02-13 00:00:00 Completed [facility] Influenza High Dose Quad 2021-02-13 00:00:00 Completed [facility] Influenza High Dose 2021-02-13 00:00:00 Completed [facility] Influenza High Dose Quad 2021-02-13 00:00:00 Completed [facility] Influenza High Dose 2021-02-13 00:00:00 Completed [facility] Influenza High Dose Quad 2021-02-13 00:00:00 Completed [facility] Influenza High Dose 2021-02-13 00:00:00 Completed [facility] Influenza High Dose Quad 2021-02-13 00:00:00 Completed [facility] Influenza High Dose 2021-02-13 00:00:00 Completed [facility] Influenza High Dose Quad 2021-02-13 00:00:00 Completed [facility] Influenza High Dose 2021-02-13 00:00:00 Completed [facility] Influenza High Dose 2021-02-13 00:00:00 Completed [facility] Influenza High Dose 2021-02-13 00:00:00 Completed [facility] Influenza High Dose 2021-02-13 00:00:00 Completed [facility] Influenza High Dose 2021-02-13 00:00:00 Completed [facility] Influenza High Dose 2021-02-13 00:00:00 Completed [facility] Influenza High Dose 2021-02-13 00:00:00 Completed [facility] Influenza High Dose 2021-02-13 00:00:00 Completed [facility] Influenza High Dose 2021-02-13 00:00:00 Completed [facility] Influenza High Dose 2021-02-13 00:00:00 Completed [facility] Influenza High Dose 2021-02-13 00:00:00 Completed [facility] Influenza High Dose 2021-02-13 00:00:00 Completed [facility] SARS-COV-2 COVID-19 PFIZER VACCINE 2020-08-02 00:00:00 Completed [facility] SARS-COV-2 COVID-19 PFIZER VACCINE 2020-08-02 00:00:00 Completed [facility] SARS-COV-2 COVID-19 PFIZER VACCINE 2020-08-02 00:00:00 Completed [facility] SARS-COV-2 COVID-19 PFIZER VACCINE 2020-08-02 00:00:00 Completed [facility] SARS-COV-2 COVID-19 PFIZER VACCINE 2020-08-02 00:00:00 Completed [facility] SARS-COV-2 COVID-19 PFIZER VACCINE 2020-08-02 00:00:00 Completed [facility] SARS-COV-2 COVID-19 PFIZER VACCINE 2020-08-02 00:00:00 Completed [facility] SARS-COV-2 COVID-19 PFIZER VACCINE 2020-08-02 00:00:00 Completed [facility] SARS-COV-2 COVID-19 PFIZER VACCINE 2020-08-02 00:00:00 Completed [facility] SARS-COV-2 COVID-19 PFIZER VACCINE 2020-08-02 00:00:00 Completed [facility] SARS-COV-2 COVID-19 PFIZER VACCINE 2020-08-02 00:00:00 Completed [facility] SARS-COV-2 COVID-19 PFIZER VACCINE 2020-08-02 00:00:00 Completed [facility] SARS-COV-2 COVID-19 PFIZER VACCINE 2020-08-02 00:00:00 Completed [facility] SARS-COV-2 COVID-19 PFIZER VACCINE 2020-08-02 00:00:00 Completed [facility] SARS-COV-2 COVID-19 PFIZER VACCINE 2020-08-02 00:00:00 Completed [facility] SARS-COV-2 COVID-19 PFIZER VACCINE 2020-08-02 00:00:00 Completed [facility] SARS-COV-2 COVID-19 PFIZER VACCINE 2020-08-02 00:00:00 Completed [facility] SARS-COV-2 COVID-19 PFIZER VACCINE 2020-08-02 00:00:00 Completed [facility] SARS-COV-2 COVID-19 PFIZER VACCINE 2020-08-02 00:00:00 Completed [facility] SARS-COV-2 COVID-19 PFIZER VACCINE 2020-08-02 00:00:00 Completed [facility] SARS-COV-2 COVID-19 PFIZER VACCINE 2020-08-02 00:00:00 Completed [facility] SARS-COV-2 COVID-19 PFIZER VACCINE 2020-08-02 00:00:00 Completed [facility] SARS-COV-2 COVID-19 PFIZER VACCINE 2020-08-02 00:00:00 Completed [facility] SARS-COV-2 COVID-19 PFIZER VACCINE 2020-08-02 00:00:00 Completed [facility] SARS-COV-2 COVID-19 PFIZER VACCINE 2020-08-02 00:00:00 Completed [facility] SARS-COV-2 COVID-19 PFIZER VACCINE 2020-08-02 00:00:00 Completed [facility] SARS-COV-2 COVID-19 PFIZER VACCINE 2020-08-02 00:00:00 Completed [facility] SARS-COV-2 COVID-19 PFIZER VACCINE 2020-07-12 00:00:00 Completed [facility] SARS-COV-2 COVID-19 PFIZER VACCINE 2020-07-12 00:00:00 Completed [facility] SARS-COV-2 COVID-19 PFIZER VACCINE 2020-07-12 00:00:00 Completed [facility] SARS-COV-2 COVID-19 PFIZER VACCINE 2020-07-12 00:00:00 Completed [facility] SARS-COV-2 COVID-19 PFIZER VACCINE 2020-07-12 00:00:00 Completed [facility] SARS-COV-2 COVID-19 PFIZER VACCINE 2020-07-12 00:00:00 Completed [facility] SARS-COV-2 COVID-19 PFIZER VACCINE 2020-07-12 00:00:00 Completed [facility] SARS-COV-2 COVID-19 PFIZER VACCINE 2020-07-12 00:00:00 Completed [facility] SARS-COV-2 COVID-19 PFIZER VACCINE 2020-07-12 00:00:00 Completed [facility] SARS-COV-2 COVID-19 PFIZER VACCINE 2020-07-12 00:00:00 Completed [facility] SARS-COV-2 COVID-19 PFIZER VACCINE 2020-07-12 00:00:00 Completed [facility] SARS-COV-2 COVID-19 PFIZER VACCINE 2020-07-12 00:00:00 Completed [facility] SARS-COV-2 COVID-19 PFIZER VACCINE 2020-07-12 00:00:00 Completed [facility] SARS-COV-2 COVID-19 PFIZER VACCINE 2020-07-12 00:00:00 Completed [facility] SARS-COV-2 COVID-19 PFIZER VACCINE 2020-07-12 00:00:00 Completed [facility] SARS-COV-2 COVID-19 PFIZER VACCINE 2020-07-12 00:00:00 Completed [facility] SARS-COV-2 COVID-19 PFIZER VACCINE 2020-07-12 00:00:00 Completed [facility] SARS-COV-2 COVID-19 PFIZER VACCINE 2020-07-12 00:00:00 Completed [facility] SARS-COV-2 COVID-19 PFIZER VACCINE 2020-07-12 00:00:00 Completed [facility] SARS-COV-2 COVID-19 PFIZER VACCINE 2020-07-12 00:00:00 Completed [facility] SARS-COV-2 COVID-19 PFIZER VACCINE 2020-07-12 00:00:00 Completed [facility] SARS-COV-2 COVID-19 PFIZER VACCINE 2020-07-12 00:00:00 Completed [facility] SARS-COV-2 COVID-19 PFIZER VACCINE 2020-07-12 00:00:00 Completed [facility] SARS-COV-2 COVID-19 PFIZER VACCINE 2020-07-12 00:00:00 Completed [facility] SARS-COV-2 COVID-19 PFIZER VACCINE 2020-07-12 00:00:00 Completed [facility] SARS-COV-2 COVID-19 PFIZER VACCINE 2020-07-12 00:00:00 Completed [facility] SARS-COV-2 COVID-19 PFIZER VACCINE 2020-07-12 00:00:00 Completed [facility] Influenza High Dose Quad 2020-03-08 00:00:00 Completed [facility] Influenza High Dose Quad 2020-03-08 00:00:00 Completed [facility] Influenza High Dose Quad 2020-03-08 00:00:00 Completed [facility] Influenza High Dose Quad 2020-03-08 00:00:00 Completed [facility] Influenza High Dose Quad 2020-03-08 00:00:00 Completed [facility] Influenza High Dose Quad 2020-03-08 00:00:00 Completed [facility] Influenza High Dose Quad 2020-03-08 00:00:00 Completed [facility] Influenza High Dose Quad 2020-03-08 00:00:00 Completed [facility] Influenza High Dose Quad 2020-03-08 00:00:00 Completed [facility] Influenza High Dose Quad 2020-03-08 00:00:00 Completed [facility] Influenza High Dose Quad 2020-03-08 00:00:00 Completed [facility] Influenza High Dose Quad 2020-03-08 00:00:00 Completed [facility] Influenza High Dose Quad 2020-03-08 00:00:00 Completed [facility] Influenza High Dose Quad 2020-03-08 00:00:00 Completed [facility] Influenza High Dose Quad 2020-03-08 00:00:00 Completed [facility] Influenza High Dose Quad 2020-03-08 00:00:00 Completed [facility] Influenza High Dose Quad 2020-03-08 00:00:00 Completed [facility] Influenza High Dose Quad 2020-03-08 00:00:00 Completed [facility] Influenza High Dose Quad 2020-03-08 00:00:00 Completed [facility] Influenza High Dose Quad 2020-03-08 00:00:00 Completed [facility] Influenza High Dose Quad 2020-03-08 00:00:00 Completed [facility] Influenza High Dose Quad 2020-03-08 00:00:00 Completed [facility] Influenza High Dose Quad 2020-03-08 00:00:00 Completed [facility] Influenza High Dose Quad 2020-03-08 00:00:00 Completed [facility] Influenza High Dose Quad 2020-03-08 00:00:00 Completed [facility] Influenza High Dose Quad 2020-03-08 00:00:00 Completed [facility] Influenza High Dose Quad 2020-03-08 00:00:00 Completed [facility] Pneumococcal 13 Conjugate, PCV13 (Prevnar 13) 2019-03-22 00:00:00 Completed [facility] Pneumococcal 13 Conjugate, PCV13 (Prevnar 13) 2019-03-22 00:00:00 Completed [facility] Pneumococcal 13 Conjugate, PCV13 (Prevnar 13) 2019-03-22 00:00:00 Completed [facility] Pneumococcal 13 Conjugate, PCV13 (Prevnar 13) 2019-03-22 00:00:00 Completed [facility] Pneumococcal 13 Conjugate, PCV13 (Prevnar 13) 2019-03-22 00:00:00 Completed [facility] Pneumococcal 13 Conjugate, PCV13 (Prevnar 13) 2019-03-22 00:00:00 Completed [facility] Pneumococcal 13 Conjugate, PCV13 (Prevnar 13) 2019-03-22 00:00:00 Completed [facility] Pneumococcal 13 Conjugate, PCV13 (Prevnar 13) 2019-03-22 00:00:00 Completed [facility] Pneumococcal 13 Conjugate, PCV13 (Prevnar 13) 2019-03-22 00:00:00 Completed [facility] Pneumococcal 13 Conjugate, PCV13 (Prevnar 13) 2019-03-22 00:00:00 Completed [facility] Pneumococcal 13 Conjugate, PCV13 (Prevnar 13) 2019-03-22 00:00:00 Completed [facility] Pneumococcal 13 Conjugate, PCV13 (Prevnar 13) 2019-03-22 00:00:00 Completed [facility] Pneumococcal 13 Conjugate, PCV13 (Prevnar 13) 2019-03-22 00:00:00 Completed [facility] Pneumococcal 13 Conjugate, PCV13 (Prevnar 13) 2019-03-22 00:00:00 Completed [facility] Pneumococcal 13 Conjugate, PCV13 (Prevnar 13) 2019-03-22 00:00:00 Completed [facility] Pneumococcal 13 Conjugate, PCV13 (Prevnar 13) 2019-03-22 00:00:00 Completed [facility] Pneumococcal 13 Conjugate, PCV13 (Prevnar 13) 2019-03-22 00:00:00 Completed [facility] Pneumococcal 13 Conjugate, PCV13 (Prevnar 13) 2019-03-22 00:00:00 Completed [facility] Pneumococcal 13 Conjugate, PCV13 (Prevnar 13) 2019-03-22 00:00:00 Completed [facility] Pneumococcal 13 Conjugate, PCV13 (Prevnar 13) 2019-03-22 00:00:00 Completed [facility] Pneumococcal 13 Conjugate, PCV13 (Prevnar 13) 2019-03-22 00:00:00 Completed [facility] Pneumococcal 13 Conjugate, PCV13 (Prevnar 13) 2019-03-22 00:00:00 Completed [facility] Pneumococcal 13 Conjugate, PCV13 (Prevnar 13) 2019-03-22 00:00:00 Completed [facility] Pneumococcal 13 Conjugate, PCV13 (Prevnar 13) 2019-03-22 00:00:00 Completed [facility] Pneumococcal 13 Conjugate, PCV13 (Prevnar 13) 2019-03-22 00:00:00 Completed [facility] Pneumococcal 13 Conjugate, PCV13 (Prevnar 13) 2019-03-22 00:00:00 Completed [facility] Pneumococcal 13 Conjugate, PCV13 (Prevnar 13) 2019-03-22 00:00:00 Completed [facility] Influenza Virus Vaccine 2019-02-27 00:00:00 Completed [facility] Influenza Virus Vaccine 2019-02-27 00:00:00 Completed [facility] Influenza Virus Vaccine 2019-02-27 00:00:00 Completed [facility] Influenza Virus Vaccine 2019-02-27 00:00:00 Completed [facility] Influenza Virus Vaccine 2019-02-27 00:00:00 Completed [facility] Influenza Virus Vaccine 2019-02-27 00:00:00 Completed [facility] Influenza Virus Vaccine Quad IM Multi-dose 6+ MO 2019-02-27 00:00:00 Completed [facility] Influenza Virus Vaccine 2019-02-27 00:00:00 Completed [facility] Influenza Virus Vaccine Quad IM Multi-dose 6+ MO 2019-02-27 00:00:00 Completed [facility] Influenza Virus Vaccine 2019-02-27 00:00:00 Completed [facility] Influenza Virus Vaccine Quad IM Multi-dose 6+ MO 2019-02-27 00:00:00 Completed [facility] Influenza Virus Vaccine 2019-02-27 00:00:00 Completed [facility] Influenza Virus Vaccine Quad IM Multi-dose 6+ MO 2019-02-27 00:00:00 Completed [facility] Influenza Virus Vaccine 2019-02-27 00:00:00 Completed [facility] Influenza Virus Vaccine Quad IM Multi-dose 6+ MO 2019-02-27 00:00:00 Completed [facility] Influenza Virus Vaccine 2019-02-27 00:00:00 Completed [facility] Influenza Virus Vaccine Quad IM Multi-dose 6+ MO 2019-02-27 00:00:00 Completed [facility] Influenza Virus Vaccine 2019-02-27 00:00:00 Completed [facility] Influenza Virus Vaccine Quad IM Multi-dose 6+ MO 2019-02-27 00:00:00 Completed [facility] Influenza Virus Vaccine 2019-02-27 00:00:00 Completed [facility] Influenza Virus Vaccine Quad IM Multi-dose 6+ MO 2019-02-27 00:00:00 Completed [facility] Influenza Virus Vaccine 2019-02-27 00:00:00 Completed [facility] Influenza Virus Vaccine Quad IM Multi-dose 6+ MO 2019-02-27 00:00:00 Completed [facility] Influenza Virus Vaccine 2019-02-27 00:00:00 Completed [facility] Influenza Virus Vaccine Quad IM Multi-dose 6+ MO 2019-02-27 00:00:00 Completed [facility] Influenza Virus Vaccine 2019-02-27 00:00:00 Completed [facility] Influenza Virus Vaccine 2019-02-27 00:00:00 Completed [facility] Influenza Virus Vaccine 2019-02-27 00:00:00 Completed [facility] Influenza Virus Vaccine 2019-02-27 00:00:00 Completed [facility] Influenza Virus Vaccine 2019-02-27 00:00:00 Completed [facility] Influenza Virus Vaccine 2019-02-27 00:00:00 Completed [facility] Influenza Virus Vaccine 2019-02-27 00:00:00 Completed [facility] Influenza Virus Vaccine 2019-02-27 00:00:00 Completed [facility] Influenza Virus Vaccine 2019-02-27 00:00:00 Completed [facility] Influenza Virus Vaccine 2019-02-27 00:00:00 Completed [facility] Influenza Virus Vaccine 2019-02-27 00:00:00 Completed [facility] Influenza Virus Vaccine 2019-02-27 00:00:00 Completed [facility] Zoster Vaccine Recombinant 2018-06-19 00:00:00 Completed [facility] Zoster Vaccine Recombinant 2018-06-19 00:00:00 Completed [facility] Zoster Vaccine Recombinant 2018-06-19 00:00:00 Completed [facility] Zoster Vaccine Recombinant 2018-06-19 00:00:00 Completed [facility] Zoster Vaccine Recombinant 2018-06-19 00:00:00 Completed [facility] Zoster Vaccine Recombinant 2018-06-19 00:00:00 Completed [facility] Zoster Vaccine Recombinant 2018-06-19 00:00:00 Completed [facility] Zoster Vaccine Recombinant 2018-06-19 00:00:00 Completed [facility] Zoster Vaccine Recombinant 2018-06-19 00:00:00 Completed [facility] Zoster Vaccine Recombinant 2018-06-19 00:00:00 Completed [facility] Zoster Vaccine Recombinant 2018-06-19 00:00:00 Completed [facility] Zoster Vaccine Recombinant 2018-06-19 00:00:00 Completed [facility] Zoster Vaccine Recombinant 2018-06-19 00:00:00 Completed [facility] Zoster Vaccine Recombinant 2018-06-19 00:00:00 Completed [facility] Zoster Vaccine Recombinant 2018-06-19 00:00:00 Completed [facility] Zoster Vaccine Recombinant 2018-06-19 00:00:00 Completed [facility] Zoster Vaccine Recombinant 2018-06-19 00:00:00 Completed [facility] Zoster Vaccine Recombinant 2018-06-19 00:00:00 Completed [facility] Zoster Vaccine Recombinant 2018-06-19 00:00:00 Completed [facility] Zoster Vaccine Recombinant 2018-06-19 00:00:00 Completed [facility] Zoster Vaccine Recombinant 2018-06-19 00:00:00 Completed [facility] Zoster Vaccine Recombinant 2018-06-19 00:00:00 Completed [facility] Zoster Vaccine Recombinant 2018-06-19 00:00:00 Completed [facility] Zoster Vaccine Recombinant 2018-06-19 00:00:00 Completed [facility] Zoster Vaccine Recombinant 2018-06-19 00:00:00 Completed [facility] Zoster Vaccine Recombinant 2018-06-19 00:00:00 Completed [facility] Zoster Vaccine Recombinant 2018-06-19 00:00:00 Completed [facility] Twinrix (hep a/hep b) 2018-06-05 00:00:00 Completed [facility] Twinrix (hep a/hep b) 2018-06-05 00:00:00 Completed [facility] Twinrix (hep a/hep b) 2018-06-05 00:00:00 Completed [facility] Twinrix (hep a/hep b) 2018-06-05 00:00:00 Completed [facility] Twinrix (hep a/hep b) 2018-06-05 00:00:00 Completed [facility] Twinrix (hep a/hep b) 2018-06-05 00:00:00 Completed [facility] Twinrix (hep a/hep b) 2018-06-05 00:00:00 Completed [facility] Twinrix (hep a/hep b) 2018-06-05 00:00:00 Completed [facility] Twinrix (hep a/hep b) 2018-06-05 00:00:00 Completed [facility] Twinrix (hep a/hep b) 2018-06-05 00:00:00 Completed [facility] Twinrix (hep a/hep b) 2018-06-05 00:00:00 Completed [facility] Twinrix (hep a/hep b) 2018-06-05 00:00:00 Completed [facility] Twinrix (hep a/hep b) 2018-06-05 00:00:00 Completed [facility] Twinrix (hep a/hep b) 2018-06-05 00:00:00 Completed [facility] Twinrix (hep a/hep b) 2018-06-05 00:00:00 Completed [facility] Twinrix (hep a/hep b) 2018-06-05 00:00:00 Completed [facility] Twinrix (hep a/hep b) 2018-06-05 00:00:00 Completed [facility] Twinrix (hep a/hep b) 2018-06-05 00:00:00 Completed [facility] Twinrix (hep a/hep b) 2018-06-05 00:00:00 Completed [facility] Twinrix (hep a/hep b) 2018-06-05 00:00:00 Completed [facility] Twinrix (hep a/hep b) 2018-06-05 00:00:00 Completed [facility] Twinrix (hep a/hep b) 2018-06-05 00:00:00 Completed [facility] Twinrix (hep a/hep b) 2018-06-05 00:00:00 Completed [facility] Twinrix (hep a/hep b) 2018-06-05 00:00:00 Completed [facility] Twinrix (hep a/hep b) 2018-06-05 00:00:00 Completed [facility] Twinrix (hep a/hep b) 2018-06-05 00:00:00 Completed [facility] Twinrix (hep a/hep b) 2018-06-05 00:00:00 Completed [facility] Zoster Vaccine Recombinant 2018-04-20 00:00:00 Completed [facility] Zoster Vaccine Recombinant 2018-04-20 00:00:00 Completed [facility] Zoster Vaccine Recombinant 2018-04-20 00:00:00 Completed [facility] Zoster Vaccine Recombinant 2018-04-20 00:00:00 Completed [facility] Zoster Vaccine Recombinant 2018-04-20 00:00:00 Completed [facility] Zoster Vaccine Recombinant 2018-04-20 00:00:00 Completed [facility] Zoster Vaccine Recombinant 2018-04-20 00:00:00 Completed [facility] Zoster Vaccine Recombinant 2018-04-20 00:00:00 Completed [facility] Zoster Vaccine Recombinant 2018-04-20 00:00:00 Completed [facility] Zoster Vaccine Recombinant 2018-04-20 00:00:00 Completed [facility] Zoster Vaccine Recombinant 2018-04-20 00:00:00 Completed [facility] Zoster Vaccine Recombinant 2018-04-20 00:00:00 Completed [facility] Zoster Vaccine Recombinant 2018-04-20 00:00:00 Completed [facility] Zoster Vaccine Recombinant 2018-04-20 00:00:00 Completed [facility] Zoster Vaccine Recombinant 2018-04-20 00:00:00 Completed [facility] Zoster Vaccine Recombinant 2018-04-20 00:00:00 Completed [facility] Zoster Vaccine Recombinant 2018-04-20 00:00:00 Completed [facility] Zoster Vaccine Recombinant 2018-04-20 00:00:00 Completed [facility] Zoster Vaccine Recombinant 2018-04-20 00:00:00 Completed [facility] Zoster Vaccine Recombinant 2018-04-20 00:00:00 Completed [facility] Zoster Vaccine Recombinant 2018-04-20 00:00:00 Completed [facility] Zoster Vaccine Recombinant 2018-04-20 00:00:00 Completed [facility] Zoster Vaccine Recombinant 2018-04-20 00:00:00 Completed [facility] Zoster Vaccine Recombinant 2018-04-20 00:00:00 Completed [facility] Zoster Vaccine Recombinant 2018-04-20 00:00:00 Completed [facility] Zoster Vaccine Recombinant 2018-04-20 00:00:00 Completed [facility] Zoster Vaccine Recombinant 2018-04-20 00:00:00 Completed [facility] Influenza Virus Vaccine 2018-02-21 00:00:00 Completed [facility] Influenza Virus Vaccine 2018-02-21 00:00:00 Completed [facility] Influenza Virus Vaccine 2018-02-21 00:00:00 Completed [facility] Influenza Virus Vaccine 2018-02-21 00:00:00 Completed [facility] Influenza Virus Vaccine 2018-02-21 00:00:00 Completed [facility] Influenza Virus Vaccine 2018-02-21 00:00:00 Completed [facility] Influenza Virus Vaccine 2018-02-21 00:00:00 Completed [facility] Influenza Virus Vaccine 2018-02-21 00:00:00 Completed [facility] Influenza Virus Vaccine 2018-02-21 00:00:00 Completed [facility] Influenza Virus Vaccine 2018-02-21 00:00:00 Completed [facility] Influenza Virus Vaccine 2018-02-21 00:00:00 Completed [facility] Influenza Virus Vaccine 2018-02-21 00:00:00 Completed [facility] Influenza Virus Vaccine 2018-02-21 00:00:00 Completed [facility] Influenza Virus Vaccine 2018-02-21 00:00:00 Completed [facility] Influenza Virus Vaccine 2018-02-21 00:00:00 Completed [facility] Influenza Virus Vaccine 2018-02-21 00:00:00 Completed [facility] Influenza Virus Vaccine 2018-02-21 00:00:00 Completed [facility] Influenza Virus Vaccine 2018-02-21 00:00:00 Completed [facility] Influenza Virus Vaccine 2018-02-21 00:00:00 Completed [facility] Influenza Virus Vaccine 2018-02-21 00:00:00 Completed [facility] Influenza Virus Vaccine 2018-02-21 00:00:00 Completed [facility] Influenza Virus Vaccine 2018-02-21 00:00:00 Completed [facility] Influenza Virus Vaccine 2018-02-21 00:00:00 Completed [facility] Influenza Virus Vaccine 2018-02-21 00:00:00 Completed [facility] Influenza Virus Vaccine 2018-02-21 00:00:00 Completed [facility] Influenza Virus Vaccine 2018-02-21 00:00:00 Completed [facility] Influenza Virus Vaccine 2018-02-21 00:00:00 Completed [facility] Twinrix (hep a/hep b) 2018-01-03 00:00:00 Completed [facility] Twinrix (hep a/hep b) 2018-01-03 00:00:00 Completed [facility] Twinrix (hep a/hep b) 2018-01-03 00:00:00 Completed [facility] Twinrix (hep a/hep b) 2018-01-03 00:00:00 Completed [facility] Twinrix (hep a/hep b) 2018-01-03 00:00:00 Completed [facility] Twinrix (hep a/hep b) 2018-01-03 00:00:00 Completed [facility] Twinrix (hep a/hep b) 2018-01-03 00:00:00 Completed [facility] Twinrix (hep a/hep b) 2018-01-03 00:00:00 Completed [facility] Twinrix (hep a/hep b) 2018-01-03 00:00:00 Completed [facility] Twinrix (hep a/hep b) 2018-01-03 00:00:00 Completed [facility] Twinrix (hep a/hep b) 2018-01-03 00:00:00 Completed [facility] Twinrix (hep a/hep b) 2018-01-03 00:00:00 Completed [facility] Twinrix (hep a/hep b) 2018-01-03 00:00:00 Completed [facility] Twinrix (hep a/hep b) 2018-01-03 00:00:00 Completed [facility] Twinrix (hep a/hep b) 2018-01-03 00:00:00 Completed [facility] Twinrix (hep a/hep b) 2018-01-03 00:00:00 Completed [facility] Twinrix (hep a/hep b) 2018-01-03 00:00:00 Completed [facility] Twinrix (hep a/hep b) 2018-01-03 00:00:00 Completed [facility] Twinrix (hep a/hep b) 2018-01-03 00:00:00 Completed [facility] Twinrix (hep a/hep b) 2018-01-03 00:00:00 Completed [facility] Twinrix (hep a/hep b) 2018-01-03 00:00:00 Completed [facility] Twinrix (hep a/hep b) 2018-01-03 00:00:00 Completed [facility] Twinrix (hep a/hep b) 2018-01-03 00:00:00 Completed [facility] Twinrix (hep a/hep b) 2018-01-03 00:00:00 Completed [facility] Twinrix (hep a/hep b) 2018-01-03 00:00:00 Completed [facility] Twinrix (hep a/hep b) 2018-01-03 00:00:00 Completed [facility] Twinrix (hep a/hep b) 2018-01-03 00:00:00 Completed [facility] Twinrix (hep a/hep b) 2017-12-01 00:00:00 Completed [facility] Twinrix (hep a/hep b) 2017-12-01 00:00:00 Completed [facility] Twinrix (hep a/hep b) 2017-12-01 00:00:00 Completed [facility] Twinrix (hep a/hep b) 2017-12-01 00:00:00 Completed [facility] Twinrix (hep a/hep b) 2017-12-01 00:00:00 Completed [facility] Twinrix (hep a/hep b) 2017-12-01 00:00:00 Completed [facility] Twinrix (hep a/hep b) 2017-12-01 00:00:00 Completed [facility] Twinrix (hep a/hep b) 2017-12-01 00:00:00 Completed [facility] Twinrix (hep a/hep b) 2017-12-01 00:00:00 Completed [facility] Twinrix (hep a/hep b) 2017-12-01 00:00:00 Completed [facility] Twinrix (hep a/hep b) 2017-12-01 00:00:00 Completed [facility] Twinrix (hep a/hep b) 2017-12-01 00:00:00 Completed [facility] Twinrix (hep a/hep b) 2017-12-01 00:00:00 Completed [facility] Twinrix (hep a/hep b) 2017-12-01 00:00:00 Completed [facility] Twinrix (hep a/hep b) 2017-12-01 00:00:00 Completed [facility] Twinrix (hep a/hep b) 2017-12-01 00:00:00 Completed [facility] Twinrix (hep a/hep b) 2017-12-01 00:00:00 Completed [facility] Twinrix (hep a/hep b) 2017-12-01 00:00:00 Completed [facility] Twinrix (hep a/hep b) 2017-12-01 00:00:00 Completed [facility] Twinrix (hep a/hep b) 2017-12-01 00:00:00 Completed [facility] Twinrix (hep a/hep b) 2017-12-01 00:00:00 Completed [facility] Twinrix (hep a/hep b) 2017-12-01 00:00:00 Completed [facility] Twinrix (hep a/hep b) 2017-12-01 00:00:00 Completed [facility] Twinrix (hep a/hep b) 2017-12-01 00:00:00 Completed [facility] Twinrix (hep a/hep b) 2017-12-01 00:00:00 Completed [facility] Twinrix (hep a/hep b) 2017-12-01 00:00:00 Completed [facility] Twinrix (hep a/hep b) 2017-12-01 00:00:00 Completed [facility] TDAP 2016-03-29 00:00:00 Completed [facility] TDAP 2016-03-29 00:00:00 Completed [facility] TDAP 2016-03-29 00:00:00 Completed [facility] TDAP 2016-03-29 00:00:00 Completed [facility] TDAP 2016-03-29 00:00:00 Completed [facility] TDAP 2016-03-29 00:00:00 Completed [facility] TDAP 2016-03-29 00:00:00 Completed [facility] TDAP 2016-03-29 00:00:00 Completed [facility] TDAP 2016-03-29 00:00:00 Completed [facility] TDAP 2016-03-29 00:00:00 Completed [facility] TDAP 2016-03-29 00:00:00 Completed [facility] TDAP 2016-03-29 00:00:00 Completed [facility] TDAP 2016-03-29 00:00:00 Completed [facility] TDAP 2016-03-29 00:00:00 Completed [facility] TDAP 2016-03-29 00:00:00 Completed [facility] TDAP 2016-03-29 00:00:00 Completed [facility] TDAP 2016-03-29 00:00:00 Completed [facility] TDAP 2016-03-29 00:00:00 Completed [facility] TDAP 2016-03-29 00:00:00 Completed [facility] TDAP 2016-03-29 00:00:00 Completed [facility] TDAP 2016-03-29 00:00:00 Completed [facility] TDAP 2016-03-29 00:00:00 Completed [facility] TDAP 2016-03-29 00:00:00 Completed [facility] TDAP 2016-03-29 00:00:00 Completed [facility] TDAP 2016-03-29 00:00:00 Completed [facility] TDAP 2016-03-29 00:00:00 Completed [facility] TDAP 2016-03-29 00:00:00 Completed [facility] Zoster(Zostavax)(Trisha gomez) 2015-07-23 00:00:00 Completed [facility] Zoster(Zostavax)( jason) 2015-07-23 00:00:00 Completed [facility] Zoster(Zostavax)([facility]) 2015-07-23 00:00:00 Completed [facility] Zoster(Zostavax)([facility]) 2015-07-23 00:00:00 Completed [facility] Zoster(Zostavax)([facility]) 2015-07-23 00:00:00 Completed [facility] Zoster(Zostavax)([facility]) 2015-07-23 00:00:00 Completed [facility] Zoster(Zostavax)([facility]) 2015-07-23 00:00:00 Completed [facility] Zoster(Zostavax)([facility]) 2015-07-23 00:00:00 Completed [facility] Zoster(Zostavax)([facility]) 2015-07-23 00:00:00 Completed [facility] Zoster(Zostavax)([facility]) 2015-07-23 00:00:00 Completed [facility] Zoster(Zostavax)([facility]) 2015-07-23 00:00:00 Completed [facility] Zoster(Zostavax)([facility]) 2015-07-23 00:00:00 Completed [facility] Zoster(Zostavax)([facility]) 2015-07-23 00:00:00 Completed [facility] Zoster(Zostavax)([facility]) 2015-07-23 00:00:00 Completed [facility] Zoster(Zostavax)([facility]) 2015-07-23 00:00:00 Completed [facility] Zoster(Zostavax)([facility]) 2015-07-23 00:00:00 Completed [facility] Zoster(Zostavax)([facility]) 2015-07-23 00:00:00 Completed [facility] Zoster(Zostavax)([facility]) 2015-07-23 00:00:00 Completed [facility] Zoster(Zostavax)([facility]) 2015-07-23 00:00:00 Completed [facility] Zoster(Zostavax)([facility]) 2015-07-23 00:00:00 Completed [facility] Zoster(Zostavax)([facility]) 2015-07-23 00:00:00 Completed [facility] Zoster(Zostavax)([facility]) 2015-07-23 00:00:00 Completed [facility] Zoster(Zostavax)([facility]) 2015-07-23 00:00:00 Completed [facility] Zoster(Zostavax)([facility]) 2015-07-23 00:00:00 Completed [facility] Zoster(Zostavax)([facility]) 2015-07-23 00:00:00 Completed [facility] Zoster(Zostavax)([facility]) 2015-07-23 00:00:00 Completed [facility] Zoster(Zostavax)([facility]) 2015-07-23 00:00:00 Completed [facility] Zoster(Zostavax)([facility]) Unknown Completed [facility] TDAP Unknown Completed [facility] Twinrix (hep a/hep b) Unknown Completed [facility] Twinrix (hep a/hep b) Unknown Completed [facility] Zoster Vaccine Recombinant Unknown Completed [facility] Influenza Virus Vaccine Unknown Completed [facility] Twinrix (hep a/hep b) Unknown Completed [facility] Zoster Vaccine Recombinant Unknown Completed [facility] Influenza Virus Vaccine Unknown Completed [facility] Pneumococcal 13 Conjugate, PCV13 (Prevnar 13) Unknown Completed [facility] Influenza High Dose Quad Unknown Completed [facility] SARS-COV-2 COVID-19 PFIZER VACCINE Unknown Completed [facility] SARS-COV-2 COVID-19 PFIZER VACCINE Unknown Completed [facility] SARS-COV-2 COVID-19 PFIZER VACCINE Unknown Completed [facility] Influenza High Dose Unknown Completed [facility] Pneumococcal Polysaccharide, PPSV23 (PNEUMOVAX) Unknown Completed [facility] SARS-COV-2 COVID-19 PFIZER PEMA-SUCROSE VACCINE (ZAMBRANO TOP) Unknown Completed [facility] Influenza Virus Vaccine Unknown Completed [facility] Influenza High Dose Quad Unknown Completed [facility] Influenza High Dose Quad Unknown Completed [facility] Influenza Virus Vaccine Quad IM Multi-dose 6+ MO Unknown Completed [facility] Zoster(Zostavax)(Sh ingles) Unknown Completed [facility] TDAP Unknown Completed [facility] Twinrix (hep a/hep b) Unknown Completed [facility] Twinrix (hep a/hep b) Unknown Completed [facility] Zoster Vaccine Recombinant Unknown Completed [facility] Influenza Virus Vaccine Unknown Completed [facility] Twinrix (hep a/hep b) Unknown Completed [facility] Zoster Vaccine Recombinant Unknown Completed [facility] Influenza Virus Vaccine Unknown Completed [facility] Pneumococcal 13 Conjugate, PCV13 (Prevnar 13) Unknown Completed [facility] Influenza High Dose Quad Unknown Completed [facility] SARS-COV-2 COVID-19 PFIZER VACCINE Unknown Completed [facility] SARS-COV-2 COVID-19 PFIZER VACCINE Unknown Completed [facility] SARS-COV-2 COVID-19 PFIZER VACCINE Unknown Completed [facility] Influenza High Dose Unknown Completed [facility] Pneumococcal Polysaccharide, PPSV23 (PNEUMOVAX) Unknown Completed [facility] SARS-COV-2 COVID-19 PFIZER PEMA-SUCROSE VACCINE (ZAMBRANO TOP) Unknown Completed [facility] Influenza Virus Vaccine Unknown Completed [facility] Influenza High Dose Quad Unknown Completed [facility] Influenza High Dose Quad Unknown Completed [facility] Influenza Virus Vaccine Quad IM Multi-dose 6+ MO Unknown Completed [facility] Zoster(Zostavax)(Sh ingles) Unknown Completed [facility] TDAP Unknown Completed [facility] Twinrix (hep a/hep b) Unknown Completed [facility] Twinrix (hep a/hep b) Unknown Completed [facility] Zoster Vaccine Recombinant Unknown Completed [facility] Influenza Virus Vaccine Unknown Completed [facility] Twinrix (hep a/hep b) Unknown Completed [facility] Zoster Vaccine Recombinant Unknown Completed [facility] Influenza Virus Vaccine Unknown Completed [facility] Pneumococcal 13 Conjugate, PCV13 (Prevnar 13) Unknown Completed [facility] Influenza High Dose Quad Unknown Completed [facility] SARS-COV-2 COVID-19 PFIZER VACCINE Unknown Completed [facility] SARS-COV-2 COVID-19 PFIZER VACCINE Unknown Completed [facility] SARS-COV-2 COVID-19 PFIZER VACCINE Unknown Completed [facility] Influenza High Dose Unknown Completed [facility] Pneumococcal Polysaccharide, PPSV23 (PNEUMOVAX) Unknown Completed [facility] SARS-COV-2 COVID-19 PFIZER PEMA-SUCROSE VACCINE (ZAMBRANO TOP) Unknown Completed [facility] Influenza Virus Vaccine Unknown Completed [facility] Influenza High Dose Quad Unknown Completed [facility] Influenza High Dose Quad Unknown Completed [facility] Influenza Virus Vaccine Quad IM Multi-dose 6+ MO Unknown Completed [facility] Zoster(Zostavax)(Sh ingles) Unknown Completed [facility] TDAP Unknown Completed [facility] Twinrix (hep a/hep b) Unknown Completed [facility] Twinrix (hep a/hep b) Unknown Completed [facility] Zoster Vaccine Recombinant Unknown Completed [facility] Influenza Virus Vaccine Unknown Completed [facility] Twinrix (hep a/hep b) Unknown Completed [facility] Zoster Vaccine Recombinant Unknown Completed [facility] Influenza Virus Vaccine Unknown Completed [facility] Pneumococcal 13 Conjugate, PCV13 (Prevnar 13) Unknown Completed [facility] Influenza High Dose Quad Unknown Completed [facility] SARS-COV-2 COVID-19 PFIZER VACCINE Unknown Completed [facility] SARS-COV-2 COVID-19 PFIZER VACCINE Unknown Completed [facility] SARS-COV-2 COVID-19 PFIZER VACCINE Unknown Completed [facility] Influenza High Dose Unknown Completed [facility] Pneumococcal Polysaccharide, PPSV23 (PNEUMOVAX) Unknown Completed [facility] SARS-COV-2 COVID-19 PFIZER PEMA-SUCROSE VACCINE (ZAMBRANO TOP) Unknown Completed [facility] Influenza Virus Vaccine Unknown Completed [facility] Influenza High Dose Quad Unknown Completed [facility] Influenza High Dose Quad Unknown Completed [facility] Influenza Virus Vaccine Quad IM Multi-dose 6+ MO Unknown Completed [facility] Zoster(Zostavax)(Sh ingles) Unknown Completed [facility] TDAP Unknown Completed [facility] Twinrix (hep a/hep b) Unknown Completed [facility] Twinrix (hep a/hep b) Unknown Completed [facility] Zoster Vaccine Recombinant Unknown Completed [facility] Influenza Virus Vaccine Unknown Completed [facility] Twinrix (hep a/hep b) Unknown Completed [facility] Zoster Vaccine Recombinant Unknown Completed [facility] Influenza Virus Vaccine Unknown Completed [facility] Pneumococcal 13 Conjugate, PCV13 (Prevnar 13) Unknown Completed [facility] Influenza High Dose Quad Unknown Completed [facility] SARS-COV-2 COVID-19 PFIZER VACCINE Unknown Completed [facility] SARS-COV-2 COVID-19 PFIZER VACCINE Unknown Completed [facility] SARS-COV-2 COVID-19 PFIZER VACCINE Unknown Completed [facility] Influenza High Dose Unknown Completed [facility] Pneumococcal Polysaccharide, PPSV23 (PNEUMOVAX) Unknown Completed [facility] SARS-COV-2 COVID-19 PFIZER PEMA-SUCROSE VACCINE (ZAMBRANO TOP) Unknown Completed [facility] Influenza Virus Vaccine Unknown Completed [facility] Influenza High Dose Quad Unknown Completed [facility] Influenza High Dose Quad Unknown Completed [facility] Influenza Virus Vaccine Quad IM Multi-dose 6+ MO Unknown Completed [facility] Zoster(Zostavax)(Sh ingles) Unknown Completed [facility] TDAP Unknown Completed [facility] Twinrix (hep a/hep b) Unknown Completed [facility] Twinrix (hep a/hep b) Unknown Completed [facility] Zoster Vaccine Recombinant Unknown Completed [facility] Influenza Virus Vaccine Unknown Completed [facility] Twinrix (hep a/hep b) Unknown Completed [facility] Zoster Vaccine Recombinant Unknown Completed [facility] Influenza Virus Vaccine Unknown Completed [facility] Pneumococcal 13 Conjugate, PCV13 (Prevnar 13) Unknown Completed [facility] Influenza High Dose Quad Unknown Completed [facility] SARS-COV-2 COVID-19 PFIZER VACCINE Unknown Completed [facility] SARS-COV-2 COVID-19 PFIZER VACCINE Unknown Completed [facility] SARS-COV-2 COVID-19 PFIZER VACCINE Unknown Completed [facility] Influenza High Dose Unknown Completed [facility] Pneumococcal Polysaccharide, PPSV23 (PNEUMOVAX) Unknown Completed [facility] SARS-COV-2 COVID-19 PFIZER PEMA-SUCROSE VACCINE (ZAMBRANO TOP) Unknown Completed [facility] Influenza Virus Vaccine Unknown Completed [facility] Influenza High Dose Quad Unknown Completed [facility] Influenza High Dose Quad Unknown Completed [facility] Influenza Virus Vaccine Quad IM Multi-dose 6+ MO Unknown Completed [facility] Zoster(Zostavax)(Sh ingles) Unknown Completed [facility] TDAP Unknown Completed [facility] Twinrix (hep a/hep b) Unknown Completed [facility] Twinrix (hep a/hep b) Unknown Completed [facility] Zoster Vaccine Recombinant Unknown Completed [facility] Influenza Virus Vaccine Unknown Completed [facility] Twinrix (hep a/hep b) Unknown Completed [facility] Zoster Vaccine Recombinant Unknown Completed [facility] Influenza Virus Vaccine Unknown Completed [facility] Pneumococcal 13 Conjugate, PCV13 (Prevnar 13) Unknown Completed [facility] Influenza High Dose Quad Unknown Completed [facility] SARS-COV-2 COVID-19 PFIZER VACCINE Unknown Completed [facility] SARS-COV-2 COVID-19 PFIZER VACCINE Unknown Completed [facility] SARS-COV-2 COVID-19 PFIZER VACCINE Unknown Completed [facility] Influenza High Dose Unknown Completed [facility] Pneumococcal Polysaccharide, PPSV23 (PNEUMOVAX) Unknown Completed [facility] SARS-COV-2 COVID-19 PFIZER PEMA-SUCROSE VACCINE (ZAMBRANO TOP) Unknown Completed [facility] Influenza Virus Vaccine Unknown Completed [facility] Influenza High Dose Quad Unknown Completed [facility] Influenza High Dose Quad Unknown Completed [facility] Influenza Virus Vaccine Quad IM Multi-dose 6+ MO Unknown Completed [facility] Zoster(Zostavax)(Sh ingles) Unknown Completed [facility] TDAP Unknown Completed [facility] Twinrix (hep a/hep b) Unknown Completed [facility] Twinrix (hep a/hep b) Unknown Completed [facility] Zoster Vaccine Recombinant Unknown Completed [facility] Influenza Virus Vaccine Unknown Completed [facility] Twinrix (hep a/hep b) Unknown Completed [facility] Zoster Vaccine Recombinant Unknown Completed [facility] Influenza Virus Vaccine Unknown Completed [facility] Pneumococcal 13 Conjugate, PCV13 (Prevnar 13) Unknown Completed [facility] Influenza High Dose Quad Unknown Completed [facility] SARS-COV-2 COVID-19 PFIZER VACCINE Unknown Completed [facility] SARS-COV-2 COVID-19 PFIZER VACCINE Unknown Completed [facility] SARS-COV-2 COVID-19 PFIZER VACCINE Unknown Completed [facility] Influenza High Dose Unknown Completed [facility] Pneumococcal Polysaccharide, PPSV23 (PNEUMOVAX) Unknown Completed [facility] SARS-COV-2 COVID-19 PFIZER PEMA-SUCROSE VACCINE (ZAMBRANO TOP) Unknown Completed [facility] Influenza Virus Vaccine Unknown Completed [facility] Influenza High Dose Quad Unknown Completed [facility] Influenza High Dose Quad Unknown Completed [facility] Influenza Virus Vaccine Quad IM Multi-dose 6+ MO Unknown Completed [facility] Zoster(Zostavax)(Sh ingles) Unknown Completed [facility] TDAP Unknown Completed [facility] Twinrix (hep a/hep b) Unknown Completed [facility] Twinrix (hep a/hep b) Unknown Completed [facility] Zoster Vaccine Recombinant Unknown Completed [facility] Influenza Virus Vaccine Unknown Completed [facility] Twinrix (hep a/hep b) Unknown Completed [facility] Zoster Vaccine Recombinant Unknown Completed [facility] Influenza Virus Vaccine Unknown Completed [facility] Pneumococcal 13 Conjugate, PCV13 (Prevnar 13) Unknown Completed [facility] Influenza High Dose Quad Unknown Completed [facility] SARS-COV-2 COVID-19 PFIZER VACCINE Unknown Completed [facility] SARS-COV-2 COVID-19 PFIZER VACCINE Unknown Completed [facility] SARS-COV-2 COVID-19 PFIZER VACCINE Unknown Completed [facility] Influenza High Dose Unknown Completed [facility] Pneumococcal Polysaccharide, PPSV23 (PNEUMOVAX) Unknown Completed [facility] SARS-COV-2 COVID-19 PFIZER PEMA-SUCROSE VACCINE (ZAMBRANO TOP) Unknown Completed [facility] Influenza Virus Vaccine Unknown Completed [facility] Influenza High Dose Quad Unknown Completed [facility] Influenza High Dose Quad Unknown Completed [facility] Influenza Virus Vaccine Quad IM Multi-dose 6+ MO Unknown Completed [facility] Zoster(Zostavax)(Sh ingles) Unknown Completed [facility] TDAP Unknown Completed [facility] Twinrix (hep a/hep b) Unknown Completed [facility] Twinrix (hep a/hep b) Unknown Completed [facility] Zoster Vaccine Recombinant Unknown Completed [facility] Influenza Virus Vaccine Unknown Completed [facility] Twinrix (hep a/hep b) Unknown Completed [facility] Zoster Vaccine Recombinant Unknown Completed [facility] Influenza Virus Vaccine Unknown Completed [facility] Pneumococcal 13 Conjugate, PCV13 (Prevnar 13) Unknown Completed [facility] Influenza High Dose Quad Unknown Completed [facility] SARS-COV-2 COVID-19 PFIZER VACCINE Unknown Completed [facility] SARS-COV-2 COVID-19 PFIZER VACCINE Unknown Completed [facility] SARS-COV-2 COVID-19 PFIZER VACCINE Unknown Completed [facility] Influenza High Dose Unknown Completed [facility] Pneumococcal Polysaccharide, PPSV23 (PNEUMOVAX) Unknown Completed [facility] SARS-COV-2 COVID-19 PFIZER PEMA-SUCROSE VACCINE (ZAMBRANO TOP) Unknown Completed [facility] Influenza Virus Vaccine Unknown Completed [facility] Influenza High Dose Quad Unknown Completed [facility] Influenza High Dose Quad Unknown Completed [facility] Influenza Virus Vaccine Quad IM Multi-dose 6+ MO Unknown Completed [facility] Vital Signs Vital Name Observation Time Observation Value Comments S ource Systolic blood pressure 2023-10-31 19:49:00 147 mm[Hg] [facility] Diastolic blood pressure 2023-10-31 19:49:00 73 mm[Hg] [facility] Heart rate 2023-10-31 19:49:00 95 /min [facility] Body temperature 2023-10-31 19:49:00 36.61 Es [facility] Oxygen saturation in Arterial blood by Pulse oximetry 2023-10-31 19:49:00 100 /min [facility] Respiratory rate 2023-10-31 17:00:00 16 /min [facility] Body height 2023-10-31 05:34:00 162.6 cm [facility] Body weight 2023-10-31 01:31:00 79.379 kg [facility] BMI 2023-10-31 01:31:00 30.04 kg/m2 [facility] Systolic blood pressure 2023-10-31 00:00:00 148 mm[Hg] [facility] Diastolic blood pressure 2023-10-31 00:00:00 74 mm[Hg] [facility] Heart rate 2023-10-31 00:00:00 83 /min [facility] Body temperature 2023-10-31 00:00:00 37.39 Es [facility] Respiratory rate 2023-10-31 00:00:00 14 /min [facility] Oxygen saturation in Arterial blood by Pulse oximetry 2023-10-31 00:00:00 97 /min [facility] Body height 2023-10-30 18:30:00 162.6 cm [facility] Body weight 2023-10-30 18:30:00 74.844 kg [facility] BMI 2023-10-30 18:30:00 28.32 kg/m2 [facility] Systolic blood pressure 2023-02-28 15:03:00 151 mm[Hg] [facility] Diastolic blood pressure 2023-02-28 15:03:00 77 mm[Hg] [facility] Heart rate 2023-02-28 15:03:00 94 /min [facility] Body temperature 2023-02-28 15:02:00 35.94 Es [facility] Respiratory rate 2023-02-28 15:02:00 18 /min [facility] Body height 2023-02-28 15:02:00 162.6 cm [facility] Body weight 2023-02-28 15:02:00 73.573 kg [facility] BMI 2023-02-28 15:02:00 27.84 kg/m2 [facility] Systolic blood pressure 2022-12-27 12:45:00 138 mm[Hg] [facility] Diastolic blood pressure 2022-12-27 12:45:00 85 mm[Hg] [facility] Heart rate 2022-12-27 12:37:00 87 /min [facility] Respiratory rate 2022-12-27 12:37:00 18 /min [facility] Body height 2022-12-27 12:37:00 162.6 cm [facility] 2022-12-27 12:37:00 74.345 kg [facility] BMI 2022-12-27 12:37:00 28.13 kg/m2 [facility] Oxygen saturation in Arterial blood by Pulse oximetry 2022-12-27 12:37:00 98 /min [facility] Systolic blood pressure 2022-11-08 18:36:00 141 mm[Hg] [facility] Diastolic blood pressure 2022-11-08 18:36:00 82 mm[Hg] [facility] Heart rate 2022-11-08 18:35:00 90 /min [facility] Respiratory rate 2022-11-08 18:35:00 18 /min [facility] Body height 2022-11-08 18:35:00 162.6 cm [facility] Body weight 2022-11-08 18:35:00 77.021 kg [facility] BMI 2022-11-08 18:35:00 29.15 kg/m2 [facility] Oxygen saturation in Arterial blood by Pulse oximetry 2022-11-08 18:35:00 96 /min [facility] Systolic blood pressure 2022-05-04 15:43:00 168 mm[Hg] [facility] Diastolic blood pressure 2022-05-04 15:43:00 88 mm[Hg] [facility] Heart rate 2022-05-04 15:43:00 100 /min [facility] Body temperature 2022-05-04 15:43:00 36.78 Es [facility] Respiratory rate 2022-05-04 15:43:00 16 /min [facility] Body height 2022-05-04 15:43:00 162.6 cm [facility] Body weight 2022-05-04 15:43:00 90.719 kg [facility] BMI 2022-05-04 15:43:00 34.33 kg/m2 [facility] Oxygen saturation in Arterial blood by Pulse oximetry 2022-05-04 15:43:00 97 /min [facility] Systolic blood pressure 2022-04-22 18:11:00 140 mm[Hg] [facility] Diastolic blood pressure 2022-04-22 18:11:00 82 mm[Hg] [facility] Heart rate 2022-04-22 18:10:00 83 /min [facility] Body height 2022-04-22 18:10:00 162.6 cm [facility] Body weight 2022-04-22 18:10:00 91.082 kg [facility] BMI 2022-04-22 18:10:00 34.47 kg/m2 [facility] Oxygen saturation in Arterial blood by Pulse oximetry 2022-04-22 18:10:00 99 /min [facility] Procedures Procedure Date / Time Performed Performing Clinician Source PHOSPHORUS 2023-11-01 11:01:00 Namrata Valenzuela [facility] MAGNESIUM 2023-11-01 11:01:00 Namrata Valenzuela [facility] COMP. METABOLIC PANEL ([id number]) 2023-11-01 11:01:00 Arianna Santana [facility] CBC WITH DIFF 2023-11-01 11:01:00 Namrata Valenzuela [facility] CBC WITH DIFF 2023-10-31 19:52:00 Namrata Valenzuela [facility] FL TIME OR (NON-REPORTABLE) 2023-10-31 19:30:23 Gudelia [facility] HIP ORIF 2023-10-31 17:18[facility] BY PCRKRISTIN 2023-10-31 04:44:00 Gudelia [facility] XR CHEST 1 VW 2023-10-31 04:10:00 St frida Galeas [facility] XR HIPS 2 VW RIGHT 2023-10-31 04:10:00 KneedlerMac [facility] EKG-12 LEAD 2023-10-31 00:04:46 Martha Alejandre [facility] CT PELVIS WO CONTRAST 2023-10-30 21:14:26 Telly Alejandre [facility] ABORH CONFIRMATION (LAB ONLY) 2023-10-30 19:31:00 Martha Alejandre [facility] LACTIC ACID WHOLE BLOOD 2023-10-30 19:07:00 Moisés Alejandre [facility] COMP. METABOLIC PANEL ([id number]) 2023-10-30 19:04:00 Martha Alejandre [facility] CBC WITH DIFF 2023-10-30 19:04:00 [facility] PR[facility] / INR 2023-10-30 19:04:00 Pipe Alejandre [facility] HB ABO GROUPING 2023-10-30 19:04:00 Martha Alejandre [facility] N-TERMINAL PRO-BNP 2023-10-30 19:04:00 Martha Alejandre [facility] GLYCOSYLATED HEMOGLOBIN (A1C) 2023-10-30 19:04:00 Rosa Reaves [facility] US ABDOMEN LIMITED 2023-01-15 13:54:18 Brandon Gonzalez [facility] URINALYSIS 2022-11-09 18:00:[address] [facility] ASSIGNMENT OF BENEFITS 2022-11-08 18:08:28 Docto r Unassigned, [place] [facility] CONSENT/REFUSAL FOR DIAGNOSIS AND TREATMENT 2022-11-08 18:08:09 Doctor Unassigned, [place] [facility] MR PELVIS W WO CONTRAST 2022-09-23 20:05:24 José Miguel Crockett [facility] EXTERNAL PROVIDER RECORDS 2022-07-08 06:01:00 Doctor Unassigned, [place] [facility] CT ABDOMEN PELVIS W CONTRAST 2022-05-04 17:19:22 Martha Alejandre [facility] URINALYSIS 2022-05-04 16:16:00 Martha Alejandre [facility] LIPASE 2022-05-04 16:03:00 Martha Alejandre [facility] COMP. METABOLIC PANEL ([id number]) 2022-05-04 16:03:00 Martha Alejandre [facility] CBC WITH DIFF 2022-05-04 16:03:00 Miki [facility] CONSENT/REFUSAL FOR DIAGNOSIS AND TREATMENT 2022-05-04 15:36:20 Doctor Unassigned, [place] [facility] SARS-COV-2 COVID-19 VACCINE 12 YRS+,0.3ML,IM (PFIZER - [facility]) 2021-10-23 14:23:47 Doctor Unassigned, [place] [facility] Encounters Start Date/Time End Date/Time Encounter Type Admission Type Attending [facility] Care Facility Care Department Encounter ID Source 2023-10-30 20:54:00 Inpatient X ALLEN [facility]OZIN [facility] [id number] [facility] 2023-10-31 12:20:00 2023-10-31 15:12:00 Surgery [facility] 1..840.114 350.1.13.10 4.2.7.2.686 [id number] [facility] 2023-10-30 13:29:00 2023-10-30 19:26:00 Emergency X MARTHA ALEJANDRE [facility] ERT [id number] [facility] 2023-10-30 13:29:00 2023-10-30 19:26:00 Emergency Martha Alejandre Lee [facility] 1.2.840.114 350.1.13.10 4.2.7.2.686 [id number] [facility] 2023-06-22 15:00:00 2023-06-22 15:00:00 Outpatient SERA WILKERSON [facility] [id number] [facility] 2023-05-25 00:00:00 2023-05-25 00:00:00 Telephone Bridgett Andrade [facility] 1.2840.114 350.1.13.10 4.2.7.2.686 [id number] [facility] 2023-03-07 00:00:00 2023-03-07 00:00:00 Telephone [address] Moreland [facility] 1.2840.114 350.1.13.10 4.2.7.2.686 [id number] [facility] 2023-03-04 00:00:00 2023-03-04 00:00:00 Telephone Adia Moreland [facility] 1.2840.114 350.1.13.10 4.2.7.2.686 [id number] [facility] 2023-03-02 00:00:00 2023-03-02 00:00:00 Patient Secure Msg Adia Moreland [facility] 1.20.114 350.1.13.10 4.2.7.2.686 [id number] [facility] 2023-02-28 10:00:00 2023-02-28 10:41:00 Outpatient ADIA CAMPBELL [facility] [id number] [facility] 2023-02-28 10:00:00 2023-02-28 10:41:00 Office Visit Adia Moreland [facility] 1.2840.114 350.1.13.10 4.2.7.2.686 [id number] [facility] 2023-01-15 08:24:30 2023-01-15 23:59:00 Outpatient BRANDON PEDERSEN [facility] [id number] [facility] 2023-01-15 08:24:30 2023-01-15 23:59:00 Hospital Encounter Brandon Gonzalez [facility] 1.2840.114 350.1.13.10 4.2.7.2.686 [id number] [facility] 2023-01-03 00:00:00 2023-01-03 00:00:00 Patient Secure Msg Doctor Unassigned, [place] [facility] 1.2840.114 350.1.13.10 4.2.7.2.686 [id number] [facility] 2022-12-27 07:45:00 2022-12-27 08:00:00 Office Visit José [facility] 1..840.114 350.1.13.10 4.2.7.2.686 [id number] [facility] 2022-12-27 07:45:00 2022-12-27 07:45:00 Outpatient BRANDON PEDERSEN [facility] [id number] [facility] 2022-11-10 00:00:00 2022-11-10 00:00:00 Patient Secure Msg Doctor Unassigned, [place] [facility] 1.2.840.114 350.1.13.10 4.2.7.2.686 [id number] [facility] 2022-11-09 13:00:00 2022-11-09 13:11:52 Care Mgr Visit Lab, Ben Gonzalez [facility] 1..840.114 350.1.13.10 4.2.7.2.686 [id number] [facility] 2022-11-09 13:00:00 2022-11-09 13:00:00 Outpatient BRANDON PEDERSEN [facility] [id number] [facility] 2022-11-09 08:30:00 2022-11-09 08:45:00 Care Mgr Visit Lab, Ben Gonzalez [facility] 1.2840.114 350.1.13.10 4.2.7.2.686 [id number] [facility] 2022-11-08 13:45:00 2022-11-08 14:00:00 Office Visit José [facility] 1.20.114 350.1.13.10 4.2.7.2.686 [id number] [facility] 2022-11-08 13:45:00 2022-11-08 13:45:00 Outpatient R BRANDON GONZALEZ [facility] [id number] [facility] 2022-11-08 00:00:00 2022-11-08 00:00:00 Orders Only Doctor Unassigned, [place] [facility] 1.20.114 350.1.13.10 4.2.7.2.686 [id number] [facility] 2022-10-05 13:52:00 2022-10-05 23:59:00 Outpatient RUFUS BRITO [facility] [id number] [facility] 2022-09-23 13:29:42 2022-09-23 23:59:00 Outpatient R RADIOLOGY [facility] [id number] [facility] 2022-09-23 13:29:42 2022-09-23 23:59:00 Hospital Encounter Radiology [facility] 1.0.114 350.1.13.10 4.2.7.2.686 [id number] [facility] 2022-07-08 00:00:00 2022-07-08 00:00:00 Orders Only Doctor Unassigned, [place] [facility] 1.2840.114 350.1.13.10 4.2.7.2.686 [id number] [facility] 2022-06-28 00:00:00 2022-06-28 00:00:00 Telephone GonzalezBrandon ansari [facility] 1.2.840.114 350.1.13.10 4.2.7.2.686 [id number] [facility] 2022-05-06 00:00:00 2022-05-06 00:00:00 Outpatient BRANDON PEDERSEN [facility] [id number] [facility] 2022-05-04 09:44:00 2022-05-04 13:08:00 Emergency X MARTHA ALEJANDRE [facility] [id number] [facility] 2022-05-04 09:44:00 2022-05-04 13:08:00 Emergency Martha Alejandre Lee [facility] 1.2.840.114 350.1.13.10 4.2.7.2.686 [id number] [facility] 2022-05-03 00:00:00 2022-05-03 00:00:00 Patient Secure Msg Doctor Unassigned, [place] [facility] 1.2.840.114 350.1.13.10 4.2.7.2.686 [id number] [facility] 2022-04-22 12:15:00 2022-04-22 12:30:00 Office Visit José [facility] 1.2.840.114 350.1.13.10 4.2.7.2.686 [id number] [facility] 2022-04-22 12:15:00 2022-04-22 12:15:00 Outpatient BRANDON PEDERSEN [facility] [id number] [facility] 2022-04-20 09:15:00 2022-04-20 09:30:00 Care Mgr Visit Lab, Ben Gonzalez [facility] 1..840.114 350.1.13.10 4.2.7.2.686 [id number] [facility] 2022-04-20 09:15:00 2022-04-20 09:15:00 Outpatient R BRANDON GONZALEZ [facility] [id number] [facility] 2022-04-12 00:00:00 2022-04-12 00:00:00 Telephone José [facility] 1.840.114 350.1.13.10 4.2.7.2.686 [id number] [facility] 2022-04-02 00:00:00 2022-04-02 00:00:00 [facility] 1.840.114 350.1.13.10 4.2.7.2.686 [id number] [facility] 2021-11-10 09:00:00 2021-11-10 09:00:00 Outpatient R ISABEL KALI [facility] [id number] [facility] 2021-11-10 09:00:00 2021-11-10 09:00:00 Outpatient R ISABEL MARIAKATTMARLON [facility] [id number] [facility] 2021-11-10 09:00:00 2021-11-10 09:00:00 Outpatient R ISABEL MARIAMARLON [facility] [id number] [facility] 2021-10-23 09:00:00 2021-10-23 09:10:00 Imm/Inj Visit Vaccine, Ang Db Cbc Fam Kendra Garcia [facility] 1..840.114 350.1.13.10 4.2.7.2.686 [id number] [facility] 2021-10-23 09:00:00 2021-10-23 09:00:00 Outpatient R KENDRA GARCIA [facility] [id number] [facility] 2021-10-06 14:39:00 2021-10-06 23:59:00 Outpatient RUFUS BRITO [facility] [id number] [facility] 2021-09-03 10:15:00 2021-09-03 10:15:00 Outpatient R ISABELKALI WILKINS [facility] [id number] [facility] 2021-05-21 00:00:00 2021-05-21 00:00:00 Case Management IsabelKali [facility] NOHEMI [facility] 1..840.114 350.1.13.10 4.2.7.2.686 [id number] [facility] 2021-05-20 10:30:00 2021-05-20 10:30:00 Outpatient R [facility] [id number] [facility] 2021-05-12 11:15:00 2021-05-12 11:15:00 Outpatient R ISABELMARIA WILKINSKATTMARLON [facility] [id number] [facility] 2021-05-12 11:15:00 2021-05-12 11:15:00 Outpatient R ISABEL MARIAKATTMARLON [facility] [id number] [facility] 2021-05-12 10:50:03 2021-05-12 11:13:42 Care Mgr Visit Lab, Ang - Db IsabelKali [facility] NO[facility]MI [facility]?[facility] 1..840.114 350.1.13.10 4.2.7.2.686 [id number] [facility] 2021-05-12 09:57:09 2021-05-12 10:27:09 Office Visit Isabel Kali Hopson [facility] NOHEMI TEAGUE?[facility] 1..840.114 350.1.13.10 4.2.7.2.686 [id number] [facility] 2021-05-12 00:00:00 2021-05-12 00:00:00 Orders Only Doctor Unassigned, [place] [facility] 1..840.114 350.1.13.10 4.2.7.2.686 [id number] [facility] 2021-04-29 10:30:00 2021-04-29 10:30:00 Outpatient KEITH GRIMES [facility] [id number] [facility] 2021-04-29 10:00:00 2021-04-29 10:00:00 Outpatient KALI SPENCE [facility] [id number] [facility] 2021-04-29 09:40:44 2021-04-29 09:50:44 Imm/Inj Visit Vaccine, Ang Db Cbc Fam Kali Hall [facility] 1..840.114 350.1.13.10 4.2.7.2.686 [id number] [facility] 2021-04-23 00:00:00 2021-04-23 00:00:00 Refill Kali Hall [facility] 1..840.114 350.1.13.10 4.2.7.2.686 [id number] [facility] 2021-03-05 00:00:00 2021-03-05 00:00:00 Outpatient PRIV PRIV [id number] [facility] 2021-03-05 00:00:00 2021-03-05 00:00:00 Outpatient PRIV PRIV [id number] [facility] 2021-03-05 00:00:00 2021-03-05 00:00:00 Outpatient PRIV PRIV [id number] [facility] 2021-03-05 00:00:00 2021-03-05 00:00:00 Outpatient PRIV PRIV [id number] [facility] 2020-10-16 00:00:00 2020-10-16 00:00:00 Refill Kali Hall [facility] 840.114 350.1.13.10 4.2.7.2.686 [id number] [facility] 2020-10-14 14:20:00 2020-10-14 23:59:00 Outpatient [facility] [id number] [facility] 2020-10-01 06:46:00 2020-10-01 19:02:00 Outpatient DARYL [facility] [id number] [facility] 2020-08-26 14:06:00 2020-08-26 23:59:00 [facility] [id number] [facility] 2020-08-11 00:00:00 2020-08-11 00:00:00 Patient Outreach Keith Celeste [facility] 840.114 350.1.13.10 4.2.7.2.686 [id number] [facility] 2020-05-26 08:15:00 2020-05-26 08:15:00 Outpatient R KALI HALL [facility] [id number] [facility] 2020-04-28 00:00:00 2020-04-28 00:00:00 Refill Doctor Unassigned, [place] [facility] 840.114 350.1.13.10 4.2.7.2.686 [id number] 044 [id number] [facility] 2020-04-21 08:16:53 2020-04-21 09:31:48 Office Visit Kali [facility] One .114 350.1.13.10 4.2.7.2.686 [id number] 044 [id number] [facility] 2020-04-21 08:30:00 2020-04-21 08:30:00 Outpatient R KALI HALL [facility] [id number] [facility] 2020-04-17 00:00:00 2020-04-17 00:00:00 Refill Brandon [facility] One .114 350.1.13.10 4.2.7.2.686 [id number] [facility] 2020-01-15 00:00:00 2020-01-15 00:00:00 Refill Kali Hall [facility] One 1.114 350.1.13.10 4.2.7.2.686 [id number] 044 [id number] [facility] 2019-12-11 00:00:00 2019-12-11 00:00:00 Orders Only Doctor Unassigned, [place] [facility] 1.114 350.1.13.10 4.2.7.2.686 [id number] [facility] 2019-11-20 00:00:00 2019-11-20 00:00:00 Telephone Kali Hall [facility] Building 1.114 350.1.13.10 4.2.7.2.686 [id number] 044 [id number] [facility] 2019-08-25 00:00:00 2019-08-25 00:00:00 Refill José [facility] 1.114 350.1.13.10 4.2.7.2.686 [id number] [id number] [facility] 2019-07-09 00:00:00 2019-07-09 00:00:00 Patient Secure Kali [facility] 1.2.840.114 350.1.13.10 4.2.7.2.686 [id number] [facility] 2019-02-23 09:23:22 2019-02-23 10:19:27 Ancillary Visit Rosa Jack Craig L [facility] Building 1.2.840.114 350.1.13.10 4.2.7.2.686 [id number] [facility] 2019-02-19 14:23:32 2019-02-19 15:08:32 Ancillary Visit Naomi Guzman Craig L [facility] Building 1.2.840.114 350.1.13.10 4.2.7.2.686 [id number] [facility] 2019-02-14 07:59:21 2019-02-14 08:44:21 Ancillary Visit Naomi Guzman Craig L [facility] Building 1.2.840.114 350.1.13.10 4.2.7.2.686 [id number] [facility] 2019-02-13 09:08:28 2019-02-13 09:54:34 Ancillary Visit Cornelia Carter Craig L [facility] Building 1.2.840.114 350.1.13.10 4.2.7.2.686 [id number] [facility] 2019-02-13 00:00:00 2019-02-13 00:00:00 Orders Only Doctor Unassigned, [place] [facility] 1.2.840.114 350.1.13.10 4.2.7.2.686 [id number] [id number] [facility] 2019-02-06 10:32:01 2019-02-06 11:02:01 Office Visit Caren Ferris [facility] 1.2.840.114 350.1.13.10 4.2.7.2.686 [id number] [facility] 2019-01-24 00:00:00 2019-01-24 00:00:00 Telephone Kali [facility] 1.2.840.114 350.1.13.10 4.2.7.2.686 [id number] 044 [id number] [facility] 2019-01-19 13:07:30 2019-01-19 23:59:00 Hospital Encounter Kali Hall [facility] 1.2.840.114 350.1.13.10 4.2.7.2.686 [id number] [facility] 2019-01-19 12:58:23 2019-01-19 13:06:00 Hospital Encounter Kali Hall [facility] 1.2.840.114 350.1.13.10 4.2.7.2.686 [id number] [facility] 2019-01-19 10:43:23 2019-01-19 11:29:53 Office Visit Kali Hall [facility] 1.2.840.114 350.1.13.10 4.2.7.2.686 [id number] [facility] 2019-01-19 00:00:00 2019-01-19 00:00:00 Orders Only Doctor Unassigned, [place] [facility] 1.2.840.114 350.1.13.10 4.2.7.2.686 [id number] [facility] Results Test Description Test Time Test Comments Results Resul t Comments Source FL TIME OR (NON-REPORTABLE) 2023-10-31 19:30:55 These images do not require a Radiology diagnostic report. [facility] [id number] 05:17:13Exam: Chest (1 View), 10/30/2023 10:45 PM. Ordering Physician: JASS SNYDER II. History: surgery . Technique: One view of the chest. Comparison: None. Findings: Symmetric expansion of the lungs. No focal consolidation or pleuraleffusion. Cardiac silhouette appears enlarged. No acute osseous finding.[facility] H[facility] 2 VW [id number] 05:15:53ORDERING PHYSICIAN:JASS SANTIAGO CLINICAL INFORMATION: ? pain COMPARISON: None Technique: ? Frontal view of the pelvis and 2 views of the right hip Findings: There is a mildly impacted fracture of the right femoral neck. Pubicsymphysis and sacroiliac joints remain well-maintained.[facility] CenterCT PELVIS WO [id number] 21:52:30CT PELVIS WO CONTRAST Indication: Hip trauma, fracture suspected, no prior imaging right hip / pelvis injury from fall ? Comparison: May 04, 2022 RL: Ordering Clinician: MARTHA Alcala: Noncontrast axial CT imaging of the pelvis with sagittal andcoronal reformats and 3-D reformats. Dose reduction techniques were used(ALARA). Technical Quality: Adequate Discussion:Subcapitalright femoral neck fracture with impaction of approximately 2 mmwithout dislocation. The pelvic ring is intact.1 Wall thickening of the sigmoid colon with surrounding stranding in theregion of multiple diverticula concerning for acute diverticulitis.[facility] CenterABORH Confirmation (Lab Only)2023-10-30 19:39:00* Test Item Value Reference Range Interpretation Comme nts ABO & RH (test code = 20) O Positive [facility] CenterN-Terminal ASW-[id number] 19:37:00* Test Item Value Reference Range Interpretation Comme nts NT-proBNP (test code = 32578-8) 212 pg/mL <=125 ELIEZER (test code = ELIEZER) Result Indeterminate-Consid er causes of NT-proBNP elevation other than Heart failure such as acute coronary syndrome, pulmonary embolism, pulmonary hypertension, sepsis, stroke, and renal dysfunction. Lab Interpretation (test code = 43215-0) Abnormal [facility] CenterComp. Metabolic Panel (08948)2023-10-30 19:29:18* Test Item Value Reference Range Interpretation Comme nts NA (test code = 8948524220) 136 mmol/L 135-145 K (test code = 9572227834) 4.0 mmol/L 3.5-5.0 CL (test code = 0930778902) 103 mmol/L 98-108 CO2 TOTAL (test code = 7745560553) 25 mmol/L 23-31 AGAP (test code = 6955022401) 8 2-16 BUN (test code = 2166898069) 18 mg/dL 7-23 GLUCOSE (test code = 4241171537) 116 mg/dL 70-110 H CREATININE (test code = 2160-0) 1.14 mg/dL 0.50-1.04 H TOTAL BILI (test code = 3542980913) 0.6 mg/dL 0.1-1.1 CALCIUM (test code = 6518583720) 9.1 mg/dL 8.6-10.6 T PROTEIN (test code = 1232886145) 8.0 g/dL 6.3-8.2 ALBUMIN (test code = 7170521212) 4.0 g/dL 3.5-5.0 ALK PHOS (test code = 7442827439) 127 U/L 34-122 H ALTv (test code = 1742-6) 26 U/L 5-35 AST(SGOT) (test code = 8506615200) 43 U/L 13-40 H eGFR (test code = 83154-0) 51.9 mL/min/1.73m2 CKD-EPI eGFR (2020). Assuming creatinine has been stable day-to-day for at least three months, the eGFR indicates Category G3a (45 - 59 mL/min/1.73 m2) Lab Interpretation (test code = 10195-0) Abnormal [facility] CenterProthrombin Time / [id number] 19:25:01* Test Item Value Reference Range Interpretation Comme nts PROTIME PATIENT (test code = 5964-2) 12.6 10.1-12.6 INR (test code = 6301-6) 1.1 Normal INR <1.1; Warfarin Therapeutic range 2.0 to 3.0 or 2.5 to 3.5, depending upon the indications. Lab Interpretation (test code = 83306-3) Normal [facility] with [facility]2013-75-27 19:15:17* Test Item Value Reference Range Interpretation Comme nts WBC (test code = 6690-2) 7.64 4.30-11.10 RBC (test code = 789-8) 4.15 3.93-5.25 HGB (test code = 718-7) 13.1 g/dL 11.6-15.0 HCT (test code = 4544-3) 39.2 % 35.7-45.2 MCV (test code = 787-2) 94.5 fL 80.6-95.5 MCH (test code = 785-6) 31.6 pg 25.9-32.8 MCHC (test code = 786-4) 33.4 g/dL 31.6-35.1 RDW-SD (test code = 51870-3) 45.1 fL 39.0-49.9 RDW-CV (test code = 788-0) 13.1 % 12.0-15.5 PLT (test code = 777-3) 212 166-358 MPV (test code = 48459-7) 9.5 fL 9.5-12.9 NRBC/100 WBC (test code = 9397229432) 0.0 0.0-10.0 NRBC x10^3 (test code = 1584327810) See_Comment [Automated me ssage] The system which generated this result transmitted reference range: 10*3/?L. The reference range was not used to interpret this result as normal/abnormal. GRAN MAT (NEUT) % (test code = 770-8) 71.1 % IMM GRAN % (test code = 2004645025) 0.70 % LYMPH % (test code = 736-9) 19.8 % MONO % (test code = 5905-5) 6.3 % EOS % (test code = 713-8) 1.7 % BASO % (test code = 706-2) 0.4 % GRAN MAT x10^3(ANC) (test code = 4673103270) 5.44 10*3/uL 1.88-7.09 IMM GRAN x10^3 (test code = 0285304216) 0.05 10*3/uL 0.00-0.06 LYMPH x10^3 (test code = 731-0) 1.51 10*3/uL 1.32-3.29 MONO x10^3 (test code = 742-7) 0.48 10*3/uL 0.33-0.92 EOS x10^3 (test code = 711-2) 0.13 10*3/uL 0.03-0.39 BASO x10^3 (test code = 704-7) 0.03 10*3/uL 0.01-0.07 [facility] CenterLactic Acid Whole Ilsmi5622-54-44 19:13:26* Test Item Value Reference Range Interpretation Comme nts LACTIC ACID (test code = 3406846875) 1.46 mmol/L 0.50-2.20 Lab Interpretation (test cod e = 87188-9) Normal [facility] CenterType and Screen - ONCE [id number] 19:13:00 * Test Item Value Reference Range Interpretation Comme nts ABO & RH (test code = 20) O POSITIVE IAT (test code = 1185) Negative [facility] Notes Date/Time Note Provider Source 2023-10-30 19:23:50 1791-89-17X86:23:50 Patient transferred to [facility] ER for diagnosis of closed fracture of neck of right femur, contusion of right hip, closed fracture of proximal end of right humerus.Patient agrees to admission, discussed plan of care with patient and family.Patient is awake, A&Ox4, RR even and unlabored on RA. Color appropriate for race. PIV intact x1.No adverse reaction to medications administered while in ED.Belongings with patient to unit. 04881-5Vleqzcvht department KfjpCI0579-64-45W17:25:03Emergency department NoteTXT1.2.840.716419.1.13.104.2.7.2. 556309|[id number] for patient mhrs99300-6JoisHKICDQNDESFMgiztffgo C-CDA narrative text[id number] BFYGAJWZYIQDHGCWGUMME3619-35-83S69:25 :031.2.840.756773.1.72.3.15|1.2.840.1 70102.1.13.104.2.7.2.727879_[id number] 9 [facility] 2023-10-30 19:22:29 1595-98-69Z53:22:29 Pt leaving ED, patient care transferred to EMS staff at this time. 08344-8Hqthccggx department WaawCW7669-63-78I00:22:42[facility] department NoteTXT1.2.840.309348.1.13.104.2.7.2. 178957|[id number] for patient npsw17099-4XevwBDQXZDHHPKWAawdaalya C-CDA narrative [id number] UQCDMFZNGWBKKQPVCOOFN8105-03-99K15:22 :421.2.840.888470.1.72.3.15|1.2.840.1 98250.1.13.104.2.7.2.727879_[id number] 8 [facility] 2023-10-30 19:21:37 8127-66-17I30:21:37 [facility] arrived on scene to transport patient to [facility] ER. Pt report given to EMS staff at this time. 36521-6Kaehulvoh department CpmfRA0885-62-87E24:22:27[facility] department NoteTXT1.2.840.744787.1.13.104.2.7.2. 022070|[id number] for patient adda32718-0ShqdLKYVITZHXHBMobbyvuzz C-CDA narrative [id number] NYSPXOSRVOLIHWQHAVWXU5898-54-11R00:22 :271.2.840.879227.1.72.3.15|1.2.840.1 79874.1.13.104.2.7.2.727879_[id number] 6 [facility] 2023-10-30 19:21:20 3146-85-90O86:21:20 Nurse ReportReport given to SANDRITA Jay. Chief complaint, assessment findings, infusion verify and orders reviewed. [address]8426-7Zxvuequfy[address] MjfxCJ4506-54-96F18:21:29[facility] department NoteTXT1.2.840.929578.1.13.104.2.7.2. 954531|[id number] for patient evya63474-3ShqjXXOLEWTWTOVSmhofesoa C-CDA narrative [id number] KYWFTJEVSLOIABSTKISJS2681-83-77X08:21 :291.2.840.591507.1.72.3.15|1.2.840.1 09188.1.13.104.2.7.2.727879_[id number] 1 [facility] 2023-10-30 16:22:01 0107-66-63V09:22:[address] [place] [address]-[address] [place] [address] EmyjSW5185-79-74E76:22:11[facility] department NoteTXT1.2.840.762348.1.13.104.2.7.2. 271244|[id number] for patient pepc58516-5VmfmDCGHKGEQLIUEtysgeogz C-CDA narrative [id number] M Blade REMY[id number] PMVTNZCJLNWMEVLTOTCQU1285-67-81D72:22 :111.2.840.858714.1.72.3.15|1.2.840.1 76139.1.13.104.2.7.2.727879_[id number] 8 Gavi Richard Murguia RN [facility] 2023-10-30 13:28:56 1083-19-97V86:28:56 Pt states fell from standing after tripping over limbs in the back yard at approx 12:38pm. It was a witnessed fall. No hx of blood thinners. C/o right shoulder and groin pain. No LOC, did not hit head. 81606-1Thtbrjvgx department Triage sgroVS2426-47-93G58:32:49[facility] department Triage noteTXT1.2.840.940054.1.13.104.2.7.2. 655954|[id number] for patient khlr20144-2Lqliwxlas department NoteLNNARRATIVEFormatted C-CDA narrative [id number] UGARTE[address] StreetBoynUljgnxagjYasuokpvtAYXH3962837419J VQXAPLRWENXDUMBQTAAOL8735-20-86Y40:32 :491.2.840.246736.1.72.3.15|1.2.840.1 95932.1.13.104.2.7.2.727879_[id number] 1 Cha Hernandez RN [facility] 2023-10-30 13:23:00 9470-43-10W64:23:00Associated Order(s): EKG-12 Lead ROUTINE ONCEPre-Procedure Diagnose(s): Closed fracture of neck of right femur, initial encounterPost-Procedure Diagnose(s): Closed fracture of neck of right femur, initial encounter [facility] Emergency Department NotePatient Name: Rose Camarillo of : 1955 68 year old femaleTreatment Room: [place] [id number] Record Number: [id number] Care Physician: Brandon GonzalezPatient Escorted by: Self [9]Mode of Arrival: EMS - [facility] ([place]) [43]EMS Treatment Prior to ED Arrival:RING STAMPER treatment: NoneTravel and Exposure Screening:SymptomsDoes patient have any of these symptoms?: (not recorded)Exposure ScreeningHas patient had contact with someone with a communicable disease in the last month?: (not recorded)Diseases exposed to:: (not recorded)Is Patient ?: (not recorded)Exposure Date: (not recorded)Chief Complaint:Chief ComplaintPatient presents withFallFell from standing, tripped over limbs in the back yard.History of Present Illness:While working in her yard, reports misstep on an exposed pipe resulting in sideways fall from standing height landing on right hip and right shoulder. Complains of pain in both locations. Did not attempt walking after. Arrived by EMS. No head injury. No loss of consciousness. No neck / back injury. No other injuries. No wounds. Right hand dominant.History provided by: Patient and spousePast Medical History/Immunizations:Past Medical History:Diagnosis DateArthritisCervical spine arthritis 01/22/2019DDD (degenerative disc disease), cervical 01/22/2019Dry eyes 07/13/2017Elevated AFP 04/24/2019Fatty liverHair lossHyperlipidemiaPositive RASHIDA (antinuclear antibody) 1:80 05/12/2017Prediabetes 04/18/2019Trigger finger of left thumb 05/12/2017Tetanus received in last 5 years: YesAllergies:AllergiesAllergen ReactionsCillins [Penicillins] HivesPenicillin Unknown - See commentsPast Social History:Tobacco UseNever smoked or used smokeless tobacco.Alcohol UseNo.Drug UseNo.Sexual ActivitySexually active; Partners: Male; Control/Protection: Post-menopausal.Past Surgical History:Past Surgical History:Procedure Laterality DateBREAST BIOPSYCESAREAN SECTIONCOLONOSCOPY 05/2008TOTAL KNEE ARTHROPLASTY Right 1Review of Systems:Review of SystemsConstitutional: Negative.HENT: Negative.Eyes: Negative.Respiratory: Negative.Cardiovascular: Negative.Gastrointestinal: Negative.Genitourinary: Negative.Musculoskeletal:See HPISkin: Negative.Neurological: Negative.Psychiatric/Behavioral: Negative.Physical Exam:ED Triage Vitals [10/30/23 1330]Weight 74.8 kg (165 lb)Actual or estimated Estimated by patient/family reportHeight 1.626 m (5' 4")BP 129/71Pulse 83Resp 15Temp 37.1 ?C (98.8 ?F)Temp source OralSpO2 96 %Measured on Room airPhysical ExamVitals and nursing note reviewed.Constitutional:General: She is not in acute distress.Appearance: Normal appearance. She is not ill-appearing, toxic-appearing or diaphoretic.HENT:Head: No raccoon eyes, Saeed's sign, abrasion, contusion, masses, right periorbital erythema, left periorbital erythema or laceration. Hair is normal.Jaw: There is normal jaw occlusion. No swelling.Right Ear: External ear normal. No laceration.Left Ear: External ear normal. No laceration.Nose: No signs of injury or laceration.Right Nostril: No epistaxis or septal hematoma.Left Nostril: No epistaxis or septal hematoma.Mouth/Throat:Mouth: No injury.Eyes:General: Lids are normal.Extraocular Movements: Extraocular movements intact.Conjunctiva/sclera: Conjunctivae normal.Cardiovascular:Rate and Rhythm: Normal rate and regular rhythm.Pulmonary:Effort: Pulmonary effort is normal. No respiratory distress.Breath sounds: Normal breath sounds. No wheezing, rhonchi or rales.Chest:Chest wall: No tenderness.Abdominal:General: There is no distension.Palpations: Abdomen is soft.Tenderness: There is no abdominal tenderness.Musculoskeletal:General: Tenderness (right posterolateral proximal humerus without edema/deformity, ROM limited by pain; right hip ttp, exacerbated by nominal flexion) present.Cervical back: No tenderness.Comments: Right elbow, wrist, hand unremarkable; right knee, ankle, foot unremarkable; left upper/lower extremities unremarkable; pelvis stableSkin:General: Skin is warm and dry.Neurological:General: No focal deficit present.Mental Status: She is alert.Psychiatric:Mood and Affect: Mood normal.Behavior: Behavior normal.Thought Content: Thought content normal.Judgment: Judgment normal.Radiology:CT PELVIS WO CONTRASTFinal ResultCT PELVIS WO CONTRASTIndication: Hip trauma, fracture suspected, no prior imagingright hip / pelvis injury from fallComparison: May 042RL: 43723Zgenmakj Clinician: MARTHA Roseque: Noncontrast axial CT imaging of the pelvis with sagittal andcoronal reformats and 3-D reformats. Dose reduction techniques were used(ALARA).Technical Quality: AdequateDiscussion:Subcapital right femoral neck fracture with impaction of approximately 2mmwithout dislocation. The pelvic ring is intact.1Wall thickening of the sigmoid colon with surrounding stranding in theregion of multiple diverticula concerning for acute diverticulitis.IMPRESSIONImpression:S ubcapital right femoral neck fracture.Findings suspicious for acute diverticulitis of the sigmoid colon. XR SHOULDER 2+ VW RIGHTPreliminary ResultEXAM: XR SHOULDER 2+ VW RIGHTHISTORY: 68 years old Female with right shoulder / proximal humerus injuryfrom fallCOMPARISON: X-ray cervical spine from 2019FINDINGS:Comminuted impacted fracture of the right humeral head is seen. Corticalirregularity at the inferior scapular neck is noted. Right AC jointosteoarthrosis. Diffuse osseous demineralization. Mild overlying softtissue swelling.IMPRESSIONRight humeral head comminuted impacted fracture.Questionable nondisplaced fracture of the right scapular neck.Preliminary Report Dictated by Resident: Arely Gibbons Results:Lab ResultsCOMP. METABOLIC PANEL (48120) - AbnormalResult Value Ref RangeNA 136 135 - 145 mmol/LK 4.0 3.5 - 5.0 mmol/LCL 103 98 - 108 mmol/LCO2 TOTAL 25 23 - 31 mmol/LAGAP 8 2 - 16BUN 18 7 - 23 mg/dLGLUCOSE 116 (*) 70 - 110 mg/dLCREATININE 1.14 (*) 0.50 - 1.04 mg/dLTOTAL BILI 0.6 0.1 - 1.1 mg/dLCALCIUM 9.1 8.6 - 10.6 mg/Dirk PROTEIN 8.0 6.3 - 8.2 g/dLALBUMIN 4.0 3.5 - 5.0 g/dLALK PHOS 127 (*) 34 - 122 U/LALTv 26 5 - 35 U/LAST(SGOT) 43 (*) 13 - 40 U/LeGFR 51.9 mL/min/1.73f7V-SYCFEEUL PRO-BNP - AbnormalNT-proBNP 212 <=125 pg/mLPROTHROMBIN TIME / INR - NormalPROTIME PATIENT 12.6 10.1 - 12.6 SecondsINR 1.1LACTIC ACID WHOLE BLOOD - NormalLACTIC ACID 1.46 0.50 - 2.20 mmol/LCBC WITH DIFFWBC 7.64 4.30 - 11.10 10*3/?LRBC 4.15 3.93 - 5.25 10*6/?LHGB 13.1 11.6 - 15.0 g/dLHCT 39.2 35.7 - 45.2 %MCV 94.5 80.6 - 95.5 fLMCH 31.6 25.9 - 32.8 pgMCHC 33.4 31.6 - 35.1 g/dLRDW-SD 45.1 39.0 - 49.9 fLRDW-CV 13.1 12.0 - 15.5 %PLT 212 166 - 358 10*3/?LMPV 9.5 9.5 - 12.9 fLNRBC/100 WBC 0.0 0.0 - 10.0 /100 WBCsNRBC x10^3 <0.01 10*3/?LGRAN MAT (NEUT) % 71.1 %IMM GRAN % 0.70 %LYMPH % 19.8 %MONO % 6.3 %EOS % 1.7 %BASO % 0.4 %GRAN MAT x10^3(ANC) 5.44 1.88 - 7.09 10*3/uLIMM GRAN x10^3 0.05 0.00 - 0.06 10*3/uLLYMPH x10^3 1.51 1.32 - 3.29 10*3/uLMONO x10^3 0.48 0.33 - 0.92 10*3/uLEOS x10^3 0.13 0.03 - 0.39 10*3/uLBASO x10^3 0.03 0.01 - 0.07 10*3/uLTYPE AND SCREENABO & RH O POSITIVEIAT NegativeABORH CONFIRMATION (LAB ONLY)ABO & RH O PositiveTYPE AND SCREENURINALYSISEKG:If EKG completed, see Procedure Note.Orders and Treatments:Orders Placed This EncounterProceduresX-ray chest 1 viewXR SHOULDER 2+ VW RIGHTCT PELVIS WO CONTRASTCBC with DIFFComp. Metabolic Panel (82449)Prothrombin Time / INRType and Screen - ONCE STATN-Terminal PRO-BNPLactic Acid Whole BloodLactic Acid Whole BloodABORH Confirmation (Lab Only)Type and Screen - ONCE STATUrinalysisConsult Orthopaedic Surgery:Consult AnesthesiologyOrders Placed This EncounterMedicationsketorolac (TORADOL) injection 15 mgacetaminophen (OFIRMEV) IV piggyback 1,000 mgNaCl 0.9% (NS) bolus infusion 500 mLFENTanyl PF (SUBLIMAZE (PF)) injection 50 mcgondansetron (ZOFRAN (PF)) injection 8 mgFENTanyl PF (SUBLIMAZE (PF)) injection 50 mcgNaCl 0.9% (NS) IV infusion 1,000 mLFirst Provider Eval:ED EventsDate/Time Event User Kmgetstz29/26/24 1337 Medical Screening Begins MARTHA ALEJANDRE MD --10/30/23 1337 First Provider Evaluation MARTHA ALEJANDRE MD --AdmissionCareGuideline: Hip Fracture, InpatientBased on the indications selected for the patient, the bed status of Inpatient was determined to be METThe following indications were selected as present at the time of evaluation of the patient:- Hip fractureOperative Status Criteria selected: InpatientAdmissionCare documentation entered by: Martha Oconnor [facility] [employer], 27 edition, Copyright ? 2022 [employer] All Rights Reserved.2351-63-09W77:37:10-05:00ED COURSEED Course as of 10/30/23 1905Sun October [id number] Prolonged imaging delay. Patient not tolerant of attempts with XR imaging due to sustained pain after IV toradol and Ofirmev. She expresses interest to be pain free, at same time is hesitant to receive additional symptomatic medication. Cites intolerance due to nausea. Eventually agrees to small dose of fentanyl with anti-emetic. Reassured she is in monitored setting. Also changed XR hip to CT to minimize movement. Updated Hosting Engineer [RK]1408 Patient is hesitant to receive opioids, citing that she is "sensitive" to all medications. Agrees to non=opioid medication to start [RK]ED Course User Index[RK] Martha Alejandre, MDDiagnosis/Impression as of 10/30/23 1905Contusion of right hip, initial encounterClosed fracture of proximal end of right humerus, unspecified fracture morphology, initial encounterClosed fracture of neck of right femur, initial encounterProcedures:EKG-12 Lead ROUTINE ONCEDate/Time: 10/30/2023 7:02 PMPerformed by: Martha Alejandre MDAuthorized by: Martha Alejandre MDECG interpreted by ED Physician in the absence of a director cardiac: yesPrevious ECG:Previous ECG: Compared to currentComparison ECG info: Compared to EKG of 07/16/2016 no significant changesInterpretation:Interpretation: non-specificRate:ECG rate: 84ECG rate assessment: normalRhythm:Rhythm: sinus rhythmEctopy:Ectopy: noneQRS:QRS axis: Normal (+25)ST segments:ST segments: Non-specificT waves:T waves: non-specificComments:Qtc 460MDM:Medical Decision MakingPrimary impression: fracture right femoral neckSecondary impression: fracture right proximal humerusDifferential Diagnoses, including but not limited to: fracture, dislocationProblems Addressed:Closed fracture of neck of right femur, initial encounter: acute illness or injuryClosed fracture of proximal end of right humerus, unspecified fracture morphology, initial encounter: acute illness or injuryContusion of right hip, initial encounter: acute illness or injuryAmount and/or Complexity of Data ReviewedIndependent Historian: spouseDetails: Self, spouseLabs: ordered. Decision-making details documented in ED Course.Radiology: ordered. Decision-making details documented in ED Course.ECG/medicine tests: ordered and independent interpretation performed. Decision-making details documented in ED Course.Discussion of management or test interpretation with external provider(s): 1. Case discussed with Dr Rob, [facility] Orthopedic Surgery. Not available this weekend ()2. Case discussed with Dr Falk, [facility]. Cleared for Orthopedic Surgery as primary3. Case discussed with Dr Snyder, [facility] including presentation, exam, findings, plan. Accepted for transfer to [facility].RiskPrescription drug management.Parenteral controlled substances.Risk Details: Findings, imaging, plan reviewed with patient and spouse in detail. Will benefit from further evaluation and treatment in hospital today. No Orthopedic Surgery services at [facility] today. Accepted for transfer to [facility]. Meets AdmissionCare INPT criteria.Flowsheet Documentation:Scoring Tools:No data recordedDisposition/Condition:ED DispositionED DispositionTransfer - Intercampus ED to EDCondition--Comment--Discharge Medications:Patient's MedicationsSTART taking these medicationsNo medications on fileCONTINUE taking these medications which have NOT CHANGEDCHOLECALCIFEROL, VITAMIN D3, (VITAMIN D3 ORAL) Take 1 capsule by mouth daily.CIPROFLOXACIN HCL (CIPRO) 500 MG TABLET Take 1 tablet by mouth every 12 (twelve) hours.CRANBERRY FRUIT EXTRACT (ELLURA ORAL) Take by mouth.MAGNESIUM 250 MG TAB Take by mouth 2 (two) times daily.MULTIVITAMIN ORAL Take by mouth.RETIN-A MICRO PUMP 0.06 % GLWPROSUVASTATIN 5 MG TABLET Take 1 tablet by mouth in the morning.START taking Modified Medications as PrescribedNo medications on fileSTOP taking these medicationsNo medications on fileFollow-up:N/aElectronically signed by:Martha Alejandre MD10/30/231836Martha Alejandre MD10/30/231903Martha Alejandre MD10/30/231904 [id number] Emergency department [id number]:05:28Physician Emergency department [id number]. [id number] for patient [id number] department NoteLNNARRATIVEFormatted C-CDA narrative textUTMBUTMB - Npzayn721 University [id number] [id number]:05 :281.2.840.441030.1.72.3.15|1.2.840.1 [id number] 9 [facility] 2023-10-30 13:23:00 [id number]:23:00 AdmissionCareGuideline: Hip Fracture, InpatientBased on the indications selected for the patient, the bed status of Inpatient was determined to be METThe following indications were selected as present at the time of evaluation of the patient:- Hip fractureOperative Status Criteria selected: InpatientAdmissionCare documentation entered by: Martha GoldbergAtrium Health, 27th edition, Copyright ? 2022 [facility] [place]ina Goodman [facility] All Rights Reserved.[id number]:37:10-05:00Ele ctronically signed by aMrtha Alejandre MD at 10/30/2023 6:37 PM [id number] Admission [id number] .[id number]:37:11EC Admission [id number]. [id number] for patient [id number] C-CDA narrative [id number] [id number]:37 :111.2.840.080716.1.72.3.15|1.2.840.1 [id number] 2 [facility]
[2023-11-08] MEDS ORDERED: ACETAMINOPHEN 500 MG TAB PO PRN (15:01)
[2023-11-08] MEDS ORDERED: BISACODYL 10 MG RECTAL SUPP PR PRN (15:02)
[2023-11-08] MEDS ORDERED: POLYETHYL GLY 3350 17 GM/DOSE PO PRN (15:03)
[2023-11-08 15:28] VITALS: BMI 28.3
[2023-11-08] MEDS: TRAMADOL HCL 50 MG TAB PO PRN (17:06)
[2023-11-08 17:08] LABS: Specific Gravity 1.029 (1.005-1.030); Sqamous Epithelial <5 /HPF (None Seen); Urine Bacteria <20 /HPF (<20); Urine Bilirubin NEGATIVE (Negative); Urine Blood 2+ (Negative); Urine Clarity Clear (Clear); Urine Color Light-Yellow (Yellow); Urine Culture Reflex Order NOT NEEDED; Urine Glucose 4+ (Over) (Negative); Urine Ketones TRACE (Negative); Urine Micro Reflex YN NO BILL MICROSCOPIC; Urine Mucus Slight /HPF (None Seen); Urine Nitrite 1+ (Negative); Urine Protein 1+ (Negative); Urine RBC <5 /HPF (None Seen); Urine Urobilinogen Normal (Normal); Urine WBC <5 /HPF (<5); Urine WBC Clump Rare /HPF (None Seen)
[2023-11-08] MEDS ORDERED: SENOSIDES 8.6 MG TAB PO SCH (20:00)
[2023-11-08] MEDS: CRANBERRY FRUIT EXTRACT 200 MG CAP PO SCH (20:13)
[2023-11-08] MEDS: ROSUVASTATIN 5 MG TAB PO SCH (20:13)
[2023-11-08] MEDS: ACETAMINOPHEN 500 MG TAB PO SCH (20:14)
[2023-11-08] MEDS: MAGNESIUM OXIDE 400 MG TAB PO SCH (20:18)
[2023-11-09 06:18] LABS: Absolute Basophils 0.1 K/uL (0-0.5); Absolute Eosinophils 0.1 K/uL (0-0.5); Absolute Lymphocytes (CBC) 2.2 K/uL (0.7-4.9); Absolute Monocytes 0.8 K/uL (0.1-1.3); Absolute Neutrophil 7.2 K/uL (1.8-8.0); Basophils % 1.1 % (0-1.3); Eosinophils % 1.3 % (0-4.4); Hematocrit 29.8 % (36.0-45.0); Hemoglobin 9.9 g/dL (12.0-15.0); MCH 31.7 pg (27.0-35.0); MCHC 33.3 g/dL (32.0-36.0); MCV 95.3 fL (80-100); MPV 7.7 fL (7.6-11.3); Monocytes % 7.4 % (3.3-12.3); Neutrophils % 69.2 % (41.7-73.7); Platelets 322 thou/uL (152-406); RBC Red Blood Cell Count 3.13 M/uL (3.86-4.86); Red Cell Distribution Width 14.1 % (12.1-15.2)
[2023-11-09 06:23] LABS: Blood Morphology Comment NOT SEEN (NOT SEEN); Platelet Estimate ADEQ; White Blood Cell Scan OK (OK)
[2023-11-09 06:28] LABS: Albumin 2.5 g/dL (3.4-5.0); Magnesium 2.3 mg/dL (1.6-2.4)
[2023-11-09] MEDS: ENOXAPARIN 40 MG/0.4 ML SQ SCH (08:33)
[2023-11-09] MEDS: MULTIVITAMIN TAB PO SCH (08:33)
[2023-11-09] MEDS: VITAMIN D 1000 UNIT TAB PO SCH (08:34)
[2023-11-09] MEDS: GABAPENTIN 100 MG CAP PO SCH (08:34)
[2023-11-09] MEDS: FERROUS SULFATE 325 MG TAB PO SCH (08:34)
--- NOTE | 2023-11-09 11:59 | HP ---
Date of Admission: 11/08/2023 Time Of Service: 9 a.m. Chief Complaint: "I fell and broke my right hip and arm." History Of Present Illness: Ms. Bustos is a 68-year-old right-handed patient with degenerative disk d isease in cervical spine, arthritis, temporomandibular joint syndrome, dyslipidemia, who fell at home on October 31, 2023, while doing yard work. She developed severe pain in the right leg and arm and she was seen at [facility], where imaging identified a right humeral and right hip fracture. She was sent to [facility] for higher level of care and fractures were confirmed. The fracture in the hi p was a right humeral head comminuted impacted fracture with questionable nondisplaced fracture of th e right scapular neck. Another imaging of chest anterior and posterior showed a subcapital right fem oral neck fracture. On the , she had open reduction and internal fixation of the right hip fract ure and was sent to the surgical ICU postoperatively. The right humeral fracture is deemed to be non operable and was put in a sling to heal by secondary intention. She was put at weightbearing as tole rated status with right lower extremity and nonweightbearing with the right upper extremity. At this point, she does require supervision for transferring, mobilization, ambulation, and performance of a ctivities of daily living. Previously, she was fully independent with all activities without restric tion. Her postoperative course is heralded by pain, nausea, difficulty with sleep, and some postoper ative anemia and constipation. She did require a blood transfusion. In addition, she had acute aníbal l insufficiency, tachycardia that required monitoring. Her constipation has now improved. She has n on-decompensated chronic liver disease with fatty liver and diverticulosis. She was apparently given Tylenol, which she was told previously by a liver doctor she should not receive. However, there are no untoward effects and blood work will be done to evaluate her liver function, basic metabolic pane l, and kidney function. In addition, she needs surgical site evaluated and managed to prevent infect ion, address the dressing changes, and when appropriate removal of the layne. As a result, she is determined to be an appropriate candidate for aggressive inpatient rehabilitation while her medical c onditions are managed. Past Surgical History: As noted, she had right knee replacement, total knee arthroplasty, colonoscop y, , breast biopsy, trigger finger surgery in the left thumb. She has prediabetes, __, dyslipidemia, fatty liver, dry eyes, cervical spine degenerative disk disease. Allergies: AMOXICILLIN AND PENICILLIN. X-ray/imaging: X-ray of the right shoulder on 10/30 showed right humeral head with impacted fracture . Chest x-ray on 10/30 showed no acute cardiopulmonary findings. X-ray of the hip on 10/30 showed m ildly impacted fracture of the right femoral neck. CT of the pelvis on 10/29 showed a subcapital rig ht femoral neck fracture. Medications: Eliquis 2.5 mg twice daily, vitamin D 1000 units daily, ferrous sulfate 325 mg daily, g abapentin 100 mg twice daily, magnesium oxide 400 mg twice daily, Centrum Silver 1 tablet daily. She has Dulcolax suppository as needed 10 mg, Crestor 5 mg at bedtime, Senokot-S 8.5 mg twice daily, tra madol 50 mg every 6 hours as needed. Family History: Noncontributory. Review of Systems: She does report some mild pain in the knee and more moderate pain in the right shoulder and right hip , especially with mobilization, but nothing that is limiting her from participating in therapy. Othe rwise, she does have some episodes of feeling hot and cold. We will have her thyroid function revisi leslie and will of course follow her temperature at this point. She has been encouraged to use incentiv e spirometry to decrease the risk of pneumonia. Current Level Of Functioning: Currently, supervision for eating, oral hygiene, toileting. Moderate assistance for showering. Maximal assistance for lower body dressing. Moderate assistance for upper body dressing. Maximum assistance for donning and doffing of footwear. Rolling cxhxu-nm-mdic conta ct guard and qsg-ax-nwrda contact guard. For sliding, supervision. For going from bed to chair to [facility], moderate assistance. To ambulate, she is at moderate assistance covering 90 feet with a roll ing walker. Laboratory Studies: White blood cell count 10.4, hemoglobin 9.9, hematocrit 29.8, platelets 322. So dium 139, potassium 4.0, chloride 108, carbon dioxide 29, BUN 12, creatinine 1.01, glucose 112. Hemo globin A1c is pending. Calcium 9.3, magnesium 2.3, albumin 2.5. Prealbumin 12.0. Triglycerides 172 , cholesterol total 129 and LDL is 70, HDL is 25. Her cholesterol to HDL ratio is 5.16 and TSH is pe nding. Urinalysis showed trace ketones, 2+ blood, 1+ nitrite, 1+ total protein, and 4+ glucose. Rehab And Medical Assessment And Plan: Ms. Bustos is admitted to the rehabilitation unit with impairm ent category 07 orthopedic, lower extremity fracture. Her impairment group code is 08.11, status pos t unilateral right hip fracture. Etiologic diagnosis, subcapital right femoral neck fracture. Her c omorbid conditions are renal insufficiency with chronic kidney disease, constipation, degenerative di sk disease, decreased mobility, decreased physical functioning, diverticulosis, dyslipidemia, nausea, obesity, postoperative anemia, and mild malnutrition with low pre-albumin along with tachycardia, an d a right humeral fracture. Plan: 1.She will have physical and occupational therapy for 3 hours a day, 5 of 7 days. 2.She will have gabapentin 100 mg twice daily. We will stop Tylenol. We will continue with magnesi um 400 mg twice daily. May consider baclofen. She has muscle spasms. 3.We will use melatonin 3 mg at night depending on if she has insomnia. We will use Eliquis 2.5 mg twice daily for DVT prophylaxis. We will check A1c and management of blood sugars as her urine sugge sts possibility of an elevated amount of blood sugar, although the fasting blood sugar is 112. In ad dition, Crestor for dyslipidemia. She will have vitamin D to help with metabolism to promote healing , ferrous sulfate for the anemia, Centrum Silver as well. Comorbidities That Are Impacting Rehabilitation: Her anemia and malnutrition are moderate and they a re being addressed with supplementation including iron and protein supplementation. She does have a nonweightbearing status on the right upper extremity from the humeral fracture and she is right hood d and she will have to work around using the left hand for many activities as that will heal by secon conrad intention and healing potentially may be 8 to 12 weeks. Rehab Specific Plan: Ms. Bustos will have physical and occupational therapy to help improve her abili ty to return to her baseline level of functioning in terms of her transfers from bed to chair to usin g a walker as well to get on the toilet and off the toilet, get in the tub and out of the tub, to be able to do toileting and showering, to be able to perform activities of daily living. In addition, s he will be able to ambulate minimum more than household distances around 250 feet and go up and down 10 steps and propel a wheelchair 250 feet. Plan: She will have 24 hours a day, 7 days a week, assisted to address all comorbid condition s and her primary diagnosis, manage her pain, for sleep issues, for constipation, for blood draws and imaging studies as appropriate. She will have daily physician evaluation and management to [facility] all of her treatment and her therapy. She will have social service evaluation and management for d ischarge planning and home equipment and therapy which she has done outpatient therapy previously for her knee replacement on the right and that may likely continue with the same place. She was satisfi ed with the treatment there. Ms. Bustos and her have good understanding of the process of inpatient rehabilitation and how she will benefit from the services of physical and occupational therapy. If need be, she will have s [facility] therapy as well and if need be, services from the Orthopedic Service, Infectious Disease Servic e, and Hospitalist Service will be consulted. Due to her complex medical condition and risk of furth er complications, rehabilitation cannot be safely or effectively performed at a lower level facility such as assisted. Barriers To Discharge: She does have a right humeral fracture and is not weightbearing on her domina nt side and may have some difficulty using the left side to manipulate objects and take care of her d aily activities and she will work aggressively to overcome that. Length Of Stay: About 10 to 12 days. Disposition: Home with family, that is her , and to continue with therapy outpatient. Prognosis: Good. Rehab Specific Goals: 1.Become independent with upper and lower body dressing, donning and doffing of footwear, transfer f rom bed to toilet to shower and to perform showering and toileting and all activities of daily living . 2.Become independent with ambulation, where she covered at least 250 feet with a rolling walker. 3.Independently propel a wheelchair 250 feet. 4.Independently go up and down 10 to 12 steps with bilateral handrails. 5.Independently perform all cognitive functioning. The above goals were reviewed with Ms. Bustos and her and they are in agreement. By signing this document, I acknowledge I have personally performed a full physical examination on Ms Stan Bustos no later than 24 hours after her admission to the inpatient rehabilitation facility and deter mined that she is able to tolerate the above course of treatment at an intensive level for reasonable period of time. A detailed individualized plan of care for her will be completed by hospital day 4 based on the preadmission screen, history and physical, and therapy evaluations. HATTIE Voice ID: [id number]
[2023-11-09] MEDS: LIDOCAINE 4% PATCH TOP SCH (14:56)
[2023-11-09] MEDS: APIXABAN 2.5 MG TABLET PO SCH (20:00)
[2023-11-10] MEDS: TRAMADOL HCL 50 MG TAB PO PRN (15:03)
[2023-11-10] MEDS: TRAMADOL HCL 50 MG TAB PO SCH (20:00)
--- NOTE | 2023-11-10 23:46 | PN ---
Date of Progress Note: 11/10/2023 Time Of Service: 1 p.m. Subjective: Ms. Bustos was ambulating in the hallway. She went back to the room for the evaluation. She does report some uugl-gl-eharhjuy up to severe pain while transferring in the right shoulder and arm and right leg where she has fractures. The right arm is in a sling and healing by secondary int ention. She had surgery in the right hip with good hemostasis at the surgical site. She has sutures in place. She also had questions about her medications and the potential for worsening when the sut ures be removed. Those were discussed. Otherwise, she says she is doing fairly well with all of the therapy. She had some mild pain at the right arm and leg at this point, but maxed up to about 10/10 briefly while transferring. She otherwise denies any significant nausea. No vomiting. No difficul ty with bowel or bladder issues or functioning. Physical Examination: Vital Signs: Blood pressure 126/57, pulse 82, respiratory rate 16, temperature 97.6, and oxygen satu ration 96%. Weight 165 pounds, height 5 feet 6 inches, and BMI 28.3. General: Ms. Bustos sitting comfortably in a chair. HEENT: She is normocephalic, atraumatic. Sclerae anicteric. Oropharynx is pink and moist. Neck: Supple. Musculoskeletal: Right arm is in a sling. No significant edema or cyanosis noted. The right hip maxwell rgical site has good hemostasis. There is a hematoma noted below the incision, which is healing nice ly. Trace edema in the right lower extremity, otherwise unremarkable. Laboratory Studies: White blood cell count 10.4, hemoglobin 9.9, and platelets 322. Sodium 139, pot assium 4.0, chloride 108, carbon dioxide 29, BUN 12, creatinine 1.01, and glucose 112. Hemoglobin A1 c 5.2. Calcium 9.3, magnesium 2.3, albumin 2.5, prealbumin 12.0, triglycerides 172, cholesterol 129, LDL 70, and HDL 29. The cholesterol to HDL ratio 5.16. TSH 2.04. Her urinalysis showed trace keto mabel, 2+ blood, 1+ nitrite, 4+ glucose, 1+ protein. Her urinalysis did show Escherichia coli ESBL. H owever, she is having a repeat urinalysis done as this might potentially have been a contaminant. Sh e is asymptomatic. X-ray/imaging: No new x-rays or imaging. Medications: Eliquis 2.5 mg twice daily, vitamin D 1000 units daily, Dulcolax suppository 10 mg per rectum as needed, ferrous sulfate 325 mg daily, gabapentin 100 mg twice daily, magnesium oxide 400 mg daily, lidocaine patch apply topically to the right arm and right leg as appropriate daily, magnesiu m oxide 400 mg twice daily, Centrum Silver one tablet daily, Crestor 5 mg at bedtime, senna 8.6 mg tw ice daily, tramadol 50 mg twice daily and 50 mg every 6 hours as needed for pain rated 5 to 7 in term s of out of 10. Rehabilitation Progress With Physical Therapy: She ambulated 75 feet and 100 feet with a rolling wal ker and contact-guard assistance. She was up and down 5 steps with cwmojfb-hy-jhzvsymo assistance. Multiple ppb-qv-eecpc transfers done with minimum assistance. With occupational therapy, sit-to-tito d transfers, standby assistance. Ambulated from a chair to her Rollator, standby assistance. She am bulated 250 feet while picking up 12 small objects by bending at the knees. Ms. Bustos is making great progress, although she has just got to the rehabilitation unit with physica l and occupational therapy. Pain is being managed. Medication is being adjusted. She does have pot ential for urinary tract infection, urinalysis be redone. Assessment: Ms. Bustos is a 68-year-old patient with a right femoral subcapital neck fracture, status post surgical repair. She has a right humeral fracture held with the sling and healing by secondary intention. She has renal insufficiency, chronic kidney disease, constipation, degenerative disk dis ease, decreased mobility, decreased physical functioning, diverticulosis, dyslipidemia, nausea, malnu trition with low albumin, and anemia. Plan: 1.Continue with physical and occupational therapy for 3 hours a day, 5 of 7 days. 2.Gabapentin 100 mg twice daily. 3.Tylenol is not being used given issues of potential renal insufficiency. She does have fatty live r. She does have tramadol and they have scheduled tramadol 50 mg twice daily and on top of that she has every 4 to 6 hours as needed tramadol 50 mg. again, gabapentin 100 mg twice daily, aggressive ma nagement of her comorbid conditions including dyslipidemia, blood sugars, and potential for urinary t ract infection will be followed and urinalysis repeated with clean-catch, cultures and followed. Comorbidities That Are Impacting Rehabilitation: The right arm is in a sling and is not made nonweig htbearing. However, that will be clarified with the Orthopedic surgeon as the patient did say prior to coming to the unit, she was told that the arm may be held down and swung around, but that will be clarified with the Orthopedic surgeons in addition to when she will have her sutures removed. ALEX/ROMMEL Voice ID: [id number] Report ID: [id number]
[2023-11-11] MEDS: LIDOCAINE 4% PATCH TOP SCH (07:31)
--- NOTE | 2023-11-11 13:44 | P.RH.PN ---
Estimated Length of Stay: 14 Expected Discharge Date: 11/22/23 Discharge Disposition Plan: Home Family Support: Yes Snf Goal: Mobility, Transfers, Self Care Vital Signs: Last Vital Signs Temp 97.4 F 11/11/23 07:52 Pulse 85 11/11/23 07:52 Resp 16 11/11/23 07:52 BP 111/54 L 11/11/23 07:52 Pulse Ox 96 11/11/23 07:52 Laboratory: Laboratory Last Values WBC 10.40 thou/uL (4.3-10.9) 11/09/23 05:57 RBC 3.13 M/uL (3.86-4.86) L 11/09/23 05:57 Hgb 9.9 g/dL (12.0-15.0) L 11/09/23 05:57 Hct 29.8 % (36.0-45.0) L 11/09/23 05:57 MCV 95.3 fL (80-100) 11/09/23 05:57 MCH 31.7 pg (27.0-35.0) 11/09/23 05:57 MCHC 33.3 g/dL (32.0-36.0) 11/09/23 05:57 RDW 14.1 % (12.1-15.2) 11/09/23 05:57 Plt Count 322 thou/uL (152-406) 11/09/23 05:57 MPV 7.7 fL (7.6-11.3) 11/09/23 05:57 Neutrophils % 69.2 % (41.7-73.7) 11/09/23 05:57 Lymphocytes % 21.0 % (15.3-44.8) 11/09/23 05:57 Monocytes % 7.4 % (3.3-12.3) 11/09/23 05:57 Eosinophils % 1.3 % (0-4.4) 11/09/23 05:57 Basophils % 1.1 % (0-1.3) 11/09/23 05:57 Absolute Neutrophils 7.2 K/uL (1.8-8.0) 11/09/23 05:57 Absolute Lymphocytes 2.2 K/uL (0.7-4.9) 11/09/23 05:57 Absolute Monocytes 0.8 K/uL (0.1-1.3) 11/09/23 05:57 Absolute Eosinophils 0.1 K/uL (0-0.5) 11/09/23 05:57 Absolute Basophils 0.1 K/uL (0-0.5) 11/09/23 05:57 Platelet Estimate Adeq 11/09/23 05:57 Morphology Comment Not seen (NOT SEEN) 11/09/23 05:57 Sodium 139 mEq/L (136-145) 11/09/23 05:57 Potassium 4.0 mEq/L (3.5-5.1) 11/09/23 05:57 Chloride 108 mEq/L (98-107) H 11/09/23 05:57 Carbon Dioxide 29 mEq/L (21-32) 11/09/23 05:57 Anion Gap 6.0 mEq/L (5.0-15.0) 11/09/23 05:57 BUN 12 mg/dL (7-18) 11/09/23 05:57 Creatinine 1.01 mg/dL (0.55-1.02) 11/09/23 05:57 Est GFR (CKD-EPI) 60 ml/min (=/>90) L 11/09/23 05:57 Glucose 112 mg/dL (74-106) H 11/09/23 05:57 Hemoglobin A1c 5.2 % (4.2-6.3) 11/09/23 05:57 Calcium 9.3 mg/dL (8.5-10.1) 11/09/23 05:57 Magnesium 2.3 mg/dL (1.6-2.4) 11/09/23 05:57 Albumin 2.5 g/dL (3.4-5.0) L 11/09/23 05:57 Prealbumin 12.0 mg/dL (20-40) L 11/09/23 05:57 Triglycerides 172 mg/dL (<150) H 11/09/23 05:57 Cholesterol 129 mg/dL (<200) 11/09/23 05:57 LDL Cholesterol, Calc 70 mg/dL (<130) 11/09/23 05:57 HDL Cholesterol 25 mg/dL (40-60) L 11/09/23 05:57 Cholesterol/HDL Ratio 5.16 11/09/23 05:57 TSH 2.040 uIU/mL (0.358-3.740) 11/09/23 05:57 Urine Color Cancelled 11/10/23 11:05 Urine Clarity Cancelled 11/10/23 11:05 Urine pH Cancelled 11/10/23 11:05 Ur Specific [place] Cancelled 11/10/23 11:05 Glucose (UA)(Auto) Cancelled 11/10/23 11:05 Urine Ketones Cancelled 11/10/23 11:05 Urine Blood Cancelled 11/10/23 11:05 Urine Nitrite Cancelled 11/10/23 11:05 Urine Bilirubin Cancelled 11/10/23 11:05 Urine Urobilinogen Cancelled 11/10/23 11:05 Ur Leukocyte Esterase Cancelled 11/10/23 11:05 Urine RBC Cancelled 11/10/23 11:05 Urine Red Cell Clumps Cancelled 11/10/23 11:05 Urine WBC Cancelled 11/10/23 11:05 Urine WBC Clumps Cancelled 11/10/23 11:05 Ur Squamous Epith Cells Cancelled 11/10/23 11:05 U Non-Squamous Epi Cells Cancelled 11/10/23 11:05 Ur Transition Epith Cell Cancelled 11/10/23 11:05 Ur Renal Epithelial Cell Cancelled 11/10/23 11:05 Calcium Carbonate Cryst Cancelled 11/10/23 11:05 Calcium Oxalate Crystal Cancelled 11/10/23 11:05 Leucine Crystals Cancelled 11/10/23 11:05 Cystine Crystals Cancelled 11/10/23 11:05 Uric Acid Crystals Cancelled 11/10/23 11:05 Triple Phos Crystals Cancelled 11/10/23 11:05 Tyrosine Crystals Cancelled 11/10/23 11:05 Unidentified Crystals Cancelled 11/10/23 11:05 Amorphous Crystals Cancelled 11/10/23 11:05 Urine Bacteria Cancelled 11/10/23 11:05 Hyaline Casts Cancelled 11/10/23 11:05 Granular Casts Cancelled 11/10/23 11:05 Waxy Casts Cancelled 11/10/23 11:05 RBC Casts Cancelled 11/10/23 11:05 WBC Casts Cancelled 11/10/23 11:05 Urine Mucus Cancelled 11/10/23 11:05 Urine Trichomonas Cancelled 11/10/23 11:05 Ur Yeast w Hyphae Cancelled 06/06/24 11:05 Urine Yeast (Budding) Cancelled 11/10/23 11:05 Urine Sperm Cancelled 11/10/23 11:05 Ur Oval Fat Bodies Cancelled 11/10/23 11:05 Ur Microscopic Review Cancelled 11/10/23 11:05 Urine Culture Reflexed Cancelled 11/10/23 11:05 Urine Total Protein Cancelled 11/10/23 11:05 Urine Ascorbic Acid Cancelled 11/10/23 11:05 Urine Fat Cancelled 11/10/23 11:05 Smear Scan Ok (OK) 11/09/23 05:57 Weight: 165 lb Wound Present: No Closed Surgical Incision Present: Yes Negative Pressure Wound Therapy Present: No Physician Update: Labs reviewed, Hgb 9.9, prealbumin 12. Right hip surgical site shows good hemostasis. Non-weight bearing in the right arm due to her fracture. Rollator 200', 5 steps with supervision. Dressing toileting at supervision. Summary: Patient's care plan and terminal carman goals have been reviewed and revised as necessary. Please see the Rehabilitation Signature page for all necessary signatures.
--- NOTE | 2023-11-11 15:21 | RAD REPORT ---
EXAM DESCRIPTION: RAD - Shoulder Right 2 View - 11/11/2023 2:57 pm CLINICAL HISTORY: increased pain COMPARISON: No comparisons FINDINGS/IMPRESSION: Comminuted multipart fracture of the right proximal humerus which is age indete rminate. No priors available for comparison. The fracture involves the surgical neck which is impacte d. No dislocation. Mild right AC joint and glenohumeral joint degenerative changes.
[2023-11-12] MEDS: SENOSIDES 8.6 MG TAB PO PRN (21:10)
[2023-11-13] MEDS: SENOSIDES 8.6 MG TAB PO SCH (08:00)
[2023-11-13 11:06] LABS: Specific Gravity 1.007 (1.005-1.030); Sqamous Epithelial <5 /HPF (None Seen); Transitional Epithelial <5 /HPF (None Seen); Urine Bacteria >50 /HPF (<20); Urine Bilirubin NEGATIVE (Negative); Urine Blood 1+ (Negative); Urine Clarity Extremely Turbid (Clear); Urine Color Light-Orange (Yellow); Urine Culture Reflex Order REFLEXED; Urine Glucose NEGATIVE (Negative); Urine Ketones NEGATIVE (Negative); Urine Micro Reflex YN NO BILL MICROSCOPIC; Urine Nitrite NEGATIVE (Negative); Urine Protein TRACE (Negative); Urine RBC 21-50 /HPF (None Seen); Urine Urobilinogen Normal (Normal); Urine WBC >50 /HPF (<5); Urine WBC Clump Rare /HPF (None Seen)
[2023-11-13] MEDS: SMZ./TMP. 800/160 MG TABLET PO SCH (20:01)
--- NOTE | 2023-11-15 02:55 | PN ---
Date of Progress Note: 11/14/2023 Time Of Service: 1 p.m. Subjective: Ms. Bustos is resting in bed in between therapy sessions. She reports no significant com plaints. Her right hip surgical site has good hemostasis. She is just worried about all of the rece nt testing, if there are any issues with the right arm. There was an x-ray done on the right arm and that was reviewed with the patient in terms of the findings and a copy was given to her. Review of Systems: No fevers or chills. She does start antibiotics for urinary tract infection. Denies any significant burning pain or dysuria. Just mild symptoms. Otherwise, on objective, no rash, no psychiatric issu es, no other positives. Physical Examination: Vital Signs: Blood pressure 125/60, pulse 99, respiratory rate 16, temperature 97.6, oxygen saturati on 97%. General: Ms. Bustos is sitting in the chair beside bed. HEENT: She is normocephalic, atraumatic. Sclerae are anicteric. Extremities: Right arm is in a sling from the fracture of the right humerus at multiple places. She does have good hemostasis at the right hip surgical site. Laboratory Studies: No new laboratory studies. The repeat urinalysis done on 11/13/2023, did show e xtreme turbidity, 1+ blood, 500 esterase, 21-50 red blood cells, greater than 50 white blood cells, g reater than 50 bacteria and trace of protein. Cultures did grow initially E coli ESBL, her second se t of cultures. The first urinalysis on 11/07, seconds on 11/12, does show 4+ gram-negative rods. Se nsitivity is pending. However, the initial 1 that suggested the ESBL, although the patient should be on the meropenem per hospital protocol. She has refused IV and currently she is on Bactrim DS 800 m g twice daily, which there is sensitivity in terms of the initial urinalysis and cultures and sensiti vity. X-ray Imaging: Shoulder x-ray done on the seventh to evaluate the fracture of the humerus. Does jagruti w a comminuted multipart fracture of the right humerus, age indeterminate. Fracture involves surgica l neck which is impacted. There is no dislocation. Mild right acromioclavicular joint and glenohume ral joint degenerative changes. No comparisons available. Current Medications: Eliquis 2.5 mg twice daily; Dulcolax 10 mg per rectum for constipation; vitamin D 1000 units daily; ferrous sulfate 325 mg daily; gabapentin 100 mg twice daily; lidocaine patch keron ly 2 topically daily, 1 on the right arm and the right thigh; magnesium oxide 400 mg twice daily; Ilya trum Silver 1 tablet daily; Crestor 5 mg at bedtime; Senokot 8.6 mg daily; tramadol 50 mg every 6 amanda rs as needed and 50 mg twice daily scheduled; and trimethoprim-sulfamethoxazole that is Bactrim DS 80 0 mg/160 mg 1 tablet twice daily from 11/12 to 11/17. Progress Made With Physical, Occupational Therapy: Today with her physical therapy, she completed se veral sets of repetition exercises, therapeutic exercises, and the 2 sets of 20 of the knee extension and she did work with on balance exercises with feet together semi tandem and tandem stance. She am bulated 500 feet with a rolling walker and modified independence and was able to ambulate in the [facility] and up to 500 feet with a rolling walker with modified independence. In terms of occupational therapy, independent with bathing, lower body dressing, toilet hygiene. Donning and doffing of the s ling of the left arm was independent. Independent with grooming. [id number]-ka-[id number] transfers, independen t. Toilet transfers, independent. Ambulated from toilet to shower to room with a Rollator independe ntly. Ms. Bustos is making excellent progress with physical and occupational therapy and is likely to be bienvenido dy for discharge as she is doing well. Outpatient therapy will be most beneficial. She has a follow up there in the week for visiting orthopedic surgeon. She has questions about a dangling the right a rm and that will be addressed with her followup visit, in addition, sutures will be removed at that t scarlett. Assessment: Ms. Bustos is a 68-year-old patient, admitted to the rehabilitation unit with subcapital right femoral neck fracture status post surgery and right humeral fracture as detailed above. She do es have chronic kidney disease, constipation, degenerative disk disease, decreased mobility, decrease d physical function, diverticulosis, dyslipidemia, and anemia and malnutrition. Plan: 1.Continue with physical, occupation therapy for 3 hours a day, 5 of 7 days. 2.She has multiple modality medications for her pain including gabapentin and tramadol, muscle relax ant is held, but she has magnesium on board. 3.She has issues of malnutrition and mild anemia and those are addressed as noted. She has urinary tract infection, ESBL E coli and she is on antibiotics. May continue perhaps about 10-14 days total. She may be discharged and still needs to continue antibiotics. Comorbidities That Are Impacting Rehabilitation: The right arm which is nonweightbearing in the slin g and she is right handed, making it difficult to return to complete some tasks. Also she will need to complete antibiotics beyond her discharge and she will be discharging and following up with Orthop edic Surgery. ALEX/ROMMEL Voice ID: [id number] Report ID: [id number]
--- NOTE | 2023-11-15 23:29 | PN ---
Date of Progress Note: 11/15/2023 Time Of Service: 1:15 p.m. Subjective: Ms. Bustos is sitting in a chair besides bed in between therapy sessions. She is feeling very good about her progress with therapy. The right arm pain is managed. She is still in a sling when upright and out of bed and when lying in bed, the sling is removed. She also has good hemostasi s at the right hip surgical site and she had a shower today and the area is clean without any evidenc e of loss of hemostases. Review of Systems: No fevers or chills. Mild myalgias, arthralgias. She is on antibiotics for urinary tract infection. Denies any dysuria, pyuria, any urgency or frequency. No other complaints on review of systems. Physical Examination: Vital Signs: Blood pressure 116/58, pulse 81, respiratory rate 16, temperature 97.2, oxygen saturati on 96%. General: Ms. Bustos again is resting comfortably. HEENT: She is normocephalic, atraumatic. Sclerae anicteric. Oropharynx pink and moist. EXTREMITIES: Right arm is in a sling. Right lower extremity, no significant edema or cyanosis, and surgical site has good hemostasis. Laboratory Studies: No new laboratory studies. X-ray/imaging: No new x-rays or imaging. Medications: Have been reviewed. She is continued on Bactrim, trimethoprim-sulfamethoxazole at the same doses. Other medications are continued, unchanged. Progress Made With Physical And Occupational Therapy: Physical Therapy: She was able to complete si t-to-stand transfers and [id number] transfers all independently using a Rollator. She covered 50 0 feet with a Rollator with modified independence in the morning and another 500 feet in the afternoo n with modified independence. She was independent with [id number] transfers and going from the ondina m to toilet all independently, transfers into the chair independently. Ms. Bustos is making excellent progress with her physical and occupational therapy. Pain is managed w ell. Good nutrition and oxygenation, and sleep and other issues are stably managed. Assessment: Ms. Bustos is a 68-year-old patient in the rehabilitation unit with a right subcapital fe moral fracture, status post repair. She has a right humeral fracture that is in a sling healing by s econdary intention. She does have chronic kidney disease, constipation, degenerative disk disease, d ecreased mobility, decreased physical functioning, dyslipidemia, anemia, and malnutrition. Plan: 1.Continue with physical and occupational therapy for 3 hours a day, 5 of 7 days. 2.Gabapentin, tramadol, and magnesium for pain and muscle spasms. Continue with the Bactrim and sul famethoxazole for her urinary tract infection, that is, ESBL E. coli. Continue Crestor for dyslipide aryan, Senokot-S for constipation, the gabapentin 100 mg twice daily for neuropathic pain, ferrous sulf ate for anemia, vitamin D as on board, Eliquis for stroke and DVT risk reduction. Comorbidities That Are Impacting Rehabilitation: At this point, comorbidities are stably managed. D o not negatively impact her rehabilitation. She is continuing the oral antibiotics instead of IV as noted. ALEX/ROMMEL Voice ID: [id number] Report ID: [id number]
[2023-11-16 07:28] VITALS: BP 108/54; TEMP 97.6
[2023-11-16 11:13] LABS: Absolute Lymphocytes (CBC) 0.8 K/uL (0.7-4.9); Absolute Monocytes 0.6 K/uL (0.1-1.3); Absolute Neutrophil 6.5 K/uL (1.8-8.0); Basophils % 0.4 % (0-1.3); Eosinophils % 0.3 % (0-4.4); Hematocrit 30.6 % (36.0-45.0); Hemoglobin 10.1 g/dL (12.0-15.0); Lymphocytes % 10.3 % (15.3-44.8); MCH 30.9 pg (27.0-35.0); MCHC 32.9 g/dL (32.0-36.0); MPV 7.7 fL (7.6-11.3); Monocytes % 7.7 % (3.3-12.3); Neutrophils % 81.3 % (41.7-73.7); Platelets 402 thou/uL (152-406); RBC Red Blood Cell Count 3.26 M/uL (3.86-4.86)
[2023-11-16 11:30] LABS: Anion Gap 9.1 mEq/L (5.0-15.0); Potassium 4.1 mEq/L (3.5-5.1)
== END 2023-11-16 14:00 | disposition home or self-care (01) | DRG 560 ==
LOC: 5TH 14:25
PROVIDERS: ADMIT Psychiatry & Neurology Neurology with Special Qualifications in Child Neurology; ATTEND Psychiatry & Neurology Neurology with Special Qualifications in Child Neurology
DX: S72.011D Unspecified intracapsular fracture of right femur, subsequent encounter for closed fracture with routine healing (principal); E44.1 Mild protein-calorie malnutrition; N39.0 Urinary tract infection, site not specified; S42.291D Other displaced fracture of upper end of right humerus, subsequent encounter for fracture with routine healing; M50.30 Other cervical disc degeneration, unspecified cervical region; R00.0 Tachycardia, unspecified; D64.9 Anemia, unspecified; K59.00 Constipation, unspecified; M19.90 Unspecified osteoarthritis, unspecified site; M26.629 Arthralgia of temporomandibular joint, unspecified side; E78.5 Hyperlipidemia, unspecified; K57.90 Diverticulosis of intestine, part unspecified, without perforation or abscess without bleeding; N18.9 Chronic kidney disease, unspecified; E66.9 Obesity, unspecified; Z68.28 Body mass index [BMI] 28.0-28.9, adult
CPT/HCPCS: 36415; 80048; 80061; 81001; 82040; 83036; 83735; 84134; 84443; 85025; 87077; 87086; 87088; 87186; 97110; 97112; 97116; 97163; 97165; 97530; 97542; J1650; J2001